=== PATIENT | male | born 1970 | race Caucasian/White ===

== ENCOUNTER 2021-08-02 12:45 | Inpatient (IN) | payer MEDICARE ==
[~2021-08-02] VITALS: Ht 198.1 cm; Wt 137.7 kg
[2021-08-02] MEDS ORDERED: CALCIUM CARBONATE 500 MG (TUMS) TAB.CHEW PO PRN (13:15)
[2021-08-02] MEDS ORDERED: ALPRAZolam 0.25 MG (XANAX) TAB PO PRN (13:15)
[2021-08-02] MEDS ORDERED: LOPERAMIDE 2 MG (IMODIUM) TABLET PO PRN (13:15)
[2021-08-02] MEDS ORDERED: guaiFENesin/CODEINE (ROBITUSSIN AC) 10ML UDC PO PRN (13:15)
[2021-08-02] MEDS ORDERED: FLEET ENEMA ADULT 1 EA BTL PR PRN (13:15)
[2021-08-02] MEDS ORDERED: BISACODYL 10 MG SUPP (DULCOLAX) PR PRN (13:15)
[2021-08-02] MEDS ORDERED: ACETAMINOPHEN 325 MG TABLET PO PRN (13:15)
[2021-08-02] MEDS ORDERED: LACTULOSE SYRUP 10GM/15ML (ENULOSE) 30ML UDC PO PRN (13:15)
[2021-08-02] MEDS ORDERED: MELATONIN 3 MG TABLET PO PRN (13:15)
[2021-08-02] MEDS ORDERED: DOCUSATE SODIUM 100 MG (COLACE) CAP PO PRN (13:15)
[2021-08-02] MEDS ORDERED: diphenhydrAMINE 25 MG TAB (BENADRYL) PO PRN (13:15)
[2021-08-02] MEDS ORDERED: BUPR150T24 PO (14:31)
[2021-08-02] MEDS ORDERED: INSU100V6 SQ (14:31)
[2021-08-02] MEDS ORDERED: LISI20TA26 PO (14:31)
[2021-08-02] MEDS ORDERED: INSU100V39 SQ (14:31)
[2021-08-02] MEDS ORDERED: CARV25TA PO (14:31)
[2021-08-02] MEDS ORDERED: PANT20TA18 PO (14:31)
[2021-08-02] MEDS ORDERED: METF-478 PO (14:31)
[2021-08-02] MEDS ORDERED: DOXY100C PO (14:31)
[2021-08-02] MEDS ORDERED: LOVA20TA2 PO (14:31)
[2021-08-02] MEDS ORDERED: HYDR12.56 PO (14:31)
[2021-08-02] MEDS ORDERED: HYDR-3817 PO (14:31)
[2021-08-02] MEDS ORDERED: ARIP5TAB57 PO (14:31)
--- NOTE | 2021-08-02 14:55 | Physical Therapy Evaluation ---
PT Evaluation-General Medical Diagnosis Admission Date Aug 02, 2021 at 14:40 Medical Diagnosis: right BKA Onset Date: Jul 26, 2021 Therapy Diagnosis Therapy Diagnosis: impaired mobility Weight Bear Status Right Lower Extremity: Right Non Weight Bearing Left Lower Extremity: Left Full Weight Bearing Referral Physician: Bernadette Kiser DO Reason for Referral: Evaluation/Treatment Medical History Pertinent Medical History: DM, HTN Reviewed History: Yes Social History Home: [facility] Current Living Status: Other Family (mother) Entry Into Home: Stairs With Railing PT Steps Into Home: 4 Prior Prior Level of Function SCALE: Activities may be completed with or without assistive devices. 1-Eeedtgtohi-efojyyr completes the activity by him/herself with no assistance from a helper. 5-Set-up or Clean-up Assistance-helper sets up or cleans up; patient completes activity. [place] assists only prior to or following the activity. 4-Supervision or Touching Assistance-helper provides verbal cues and/or touching/steadying and/or contact guard assistance as patient completes activity. Assistance may be provided throughout the activity or intermittently. 3-Partial/Moderate Assistance-helper does LESS THAN HALF the effort. [place] lifts, holds or supports trunk or limbs, but provides less than half the effort. 2-Substantial/Maximal Assistance-helper does MORE THAN HALF the effort. [place] lifts or holds trunk or limbs and provides more than half the effort. 2-Cewyyuvwf-izxwvd does ALL the effort. Patient does none of the effort to complete the activity. Or, the assistance of 2 or more helpers is required for the patient to complete the activity. If activity was not attempted, code reason: 7-Patient Refused. 9-Not Applicable-not attempted and the patient did not perform the activity before the current illness, exacerbation or injury. 10-Not Attempted due to Environmental Limitations-(lack of equipment, weather restraints, etc.). 88-Not Attempted due to Medical Conditions or Safety Concerns. Bed Mobility: 6 Transfers (B,C,W/C): 6 Gait: 6 Stairs: 6 Indoor Mobility (Ambulation): Independent Stairs: Independent PT Evaluation-Current Subjective Patient in family transport pre tx, agrees to PT, has 6/10 pain in right leg. Pt/Family Goals to be independent at home Objective Patient Orientation: Person, Place, Situation ROM/Strength ROM Lower Extremities RLE not tested, LLE WNL Strength Lower Extremities LLE grossly 5/5, RLE not tested Sensory Vision: Wears Glasses Hearing: Functional Sensation Right Lower Extremit: Impaired Sensation Left Lower Extremity: Impaired Transfers Roll Left & Right (QC): 6 Sit to Lying (QC): 6 Lying to Sitting/Side of Bed(Q: 6 Sit to Stand (QC): 3 Chair/Gzv-ab-Hzhhv Xfer(QC): 4 Toilet Transfer (QC): 4 Car Transfer (QC): 3 Patient performs rolling and supine <-> sit with independence, sit <-> stand min assist, transfers CGA, car transfer min assist. Patient needs occasional cues for hand placement and safety. Gait Does the Patient Walk?: Yes Mode of Locomotion: Walk Anticipated Mode of Locomotion: Walk Walk 10 feet (QC): 4 Walk 50 ft with 2 Turns(QC): 88 Walk 150 ft (QC): 88 Walking 10ft/uneven surface-QC: 4 Distance: 10' Gait Assistive Device: FWW Comments/Gait Description Patient can ambulate 10' with a rolling walker with CGA (including 10' over an uneven surface). Patient ambulates slowly, has poor foot clearance, takes a lot of effort. Wheelchair Training Wheel 50 ft with 2 turns (QC): 10 Wheel 150 ft (QC): 10 Stairs 1 Step (curb) (QC): 88 4 Steps (QC): 88 12 Steps (QC): 88 Balance Sitting Static: Normal Sitting Dynamic: Normal Standing Static: Fair Standing Dynamic: Fair Picking up an Object (QC): 4 (using director business development) Assessment/Needs Patient in WC post tx, will continue tx with DIRECTOR SUPPLY CHAIN. Patient has impaired mobility, strength, endurance. He does need some help mostly with sit to stand and has difficulty with ambulation. Rehab Potential: Fair PT Short Term Goals Short Term Goals Time Frame: Aug 09, 2021 Roll Left & Right: 6 Sit to lyin Lying to sitting on side of be: 6 Sit to stand: 4 (CGA) Chair/ggc-ao-skeba transfer: 4 (SBA) Walk 10 feet: 4 (SBA) Walk 50 feet with two turns: 4 (SBA) PT T[place]yer Goals Senior Living Goals PT Tail Sawyer Goals Time Frame: August 23, 2021 Roll Left & Right (QC): 6 Sit to Lying (QC): 6 Lying-Sitting on Side/Bed(QC): 6 Sit to Stand (QC): 6 Chair/Tqr-sb-Nhvwr Xfer(QC): 6 Toilet Transfer (QC): 6 Car Transfer (QC): 4 Does the Patient Walk: Yes Walk 10 feet (QC): 4 Walk 50ft with 2 Turns (QC): 4 Walk 150 ft (QC): 4 Walking 10ft on Uneven Surface: 4 1 Step (curb) (QC): 4 4 Steps (QC): 4 12 Steps (QC): 88 Picking up an Object (QC): 6 Wheel 50 feet with 2 turns (QC: 9 Wheel 150 feet: 9 PT Plan Problem List Problem List: Activity Tolerance, Functional Strength, Safety, Balance, Gait, Transfer, Bed Mobility, ROM Treatment/Plan Treatment Plan: Continue Plan of Care Treatment Plan: Bed Mobility, Education, Functional Activity Teodoro, Functional Strength, Group Therapy, Gait, Safety, Therapeutic Exercise, Transfers Treatment Duration: August 23, 2021 Frequency: At least 5 of 7 days/Wk (IRF) Estimated Hrs Per Day: 1.5 hours per day Patient and/or Family Agrees t: Yes Safety Risks/Education Patient Education: Gait Training, Transfer Techniques, Correct Positioning, Safety Issues Teaching Recipient: Patient Teaching Methods: Demonstration, Discussion Response to Teaching: Reinforcement Needed Discharge Recommendations Plan Patient will perform mobility and transfer training, balance and endurance training, functional strengthening, stair training, gait training, and education, to improve functional mobility and independence at home. Therapy Discharge Recommendati: Scheduled Assistance, Home & Family, Post Acute PT Time/GCodes Time In: 1435 Time Out: 1445 Total Billed Treatment Time: 10 Total Billed Treatment 1 visit MATTHEW MARCUS PT Aug 02, 2021 14:55
--- NOTE | 2021-08-02 15:38 | Occupational Ther Daily Note ---
OT Current Status-Daily Note Subjective Pt began tx in therapy gym, agreeable to OT/PT cotreat. Mental Status/Objective Patient Orientation: Person, Place, Time, Situation ADL-Treatment Therapy Code Descriptions/Definitions Functional [place] Measure: 0=Not Assessed/NA 4=Minimal Assistance 1=Total Assistance 5=Supervision or Setup 2=Maximal Assistance 6=Modified [place] 3=Moderate Assistance 7=Complete IndependenceSCALE: Activities may be completed with or without assistive devices. 1-Uuiqdybybz-ermdagh completes the activity by him/herself with no assistance from a helper. 5-Set-up or Clean-up Assistance-helper sets up or cleans up; patient completes activity. [place] assists only prior to or following the activity. 4-Supervision or Touching Assistance-helper provides verbal cues and/or touching/steadying and/or contact guard assistance as patient completes activity. Assistance may be provided throughout the activity or intermittently. 3-Partial/Moderate Assistance-helper does LESS THAN HALF the effort. [place] lifts, holds or supports trunk or limbs, but provides less than half the effort. 2-Substantial/Maximal Assistance-helper does MORE THAN HALF the effort. [place] lifts or holds trunk or limbs and provides more than half the effort. 5-Okuqbqsus-mdikac does ALL the effort. Patient does none of the effort to com plete the activity. Or, the assistance of 2 or more helpers is required for the patient to complete the activity. If activity was not attempted, code reason: 7-Patient Refused. 9-Not Applicable-not attempted and the patient did not perform the activity before the current illness, exacerbation or injury. 10-Not Attempted due to Environmental Limitations-(lack of equipment, weather restraints, etc.). 88-Not Attempted due to Medical Conditions or Safety Concerns. Shower/Bathe Self (QC): 4 (Supervision) Upper Body Dressing (QC): 5 (Set up) Lower Body Dressing (QC): 3 (Rolando) On/Off Footwear: 5 (Set up) Other Treatment PT/OT cotreat: 2 clinicians required due to the skills of a rehabilitation tech doesn't possess. PT focused on transfers, LE placement during standing activities, and e ndurance. OT focused on ADLs, UE strengthening, and dyanmic standing balance needed for ADLs. Pt propelled to room in w/c and then transferred to shower bench with stability assistance. Pt then stood again in shower to doff pants with steady assistance. Pt doffed shirt and footwear at SBA. Pt showered at supervision. Upon finishing pt able to don pants with Rolando to pull pants over bottom. Pt able to don footwear and shirt at set up. Pt then propelled self to therapy gym to complete bike for 10min to increase activity tolerance and UE strength. Pt requested to stop due to fatigue and pain at 8/10, for his back and leg. pt propelled self to room. Pt transferred to EOB from w/c to supine. Pt education was given on purpose of OT/PT and what to expect from day to day. Pt ended tx, supine in bed with nursing in room, call light and phone in reach and all needs met. Education OT Patient Education: Rehab process Teaching Recipient: Patient Teaching Methods: Discussion Response to Teaching: Verbalize Understanding OT Slackline Operator Goals Slackline Operator Goals Time Frame: Aug 14, 2021 Eating (QC): 6 Oral Hygiene (QC): 6 Toileting Hygiene (QC): 6 Shower/Bathe Self (QC): 6 Upper Body Dressing (QC): 6 Lower Body Dressing (QC): 6 On/Off Footwear (QC): 6 1=Demonstrate adherence to instructed precautions during ADL tasks. 2=Patient will verbalize/demonstrate understanding of assistive devices/modifications for ADL. 3=Patient will improve strength/tolerance for activity to enable patient to perf orm ADL's. OT Education/Plan Problem List/Assessment Assessment: Decreased Activ Tolerance, Decreased UE Strength, Impaired Funct Balance, Impaired I ADL's, Impaired Self-Care Skills Discharge Recommendations Plan/Recommendations: Continue POC Treatment Plan/Plan of Care Patient would benefit from OT for education, treatment and training to promote independence in ADL's, mobility, safety and/or upper extremity function for ADL's. Plan of Care: ADL Retraining, Functional Mobility, Group Exercise/Act as Ind, Orthotic Fitting/Training, UE Funct Exercise/Act Treatment Duration: Aug 14, 2021 Frequency: At least 5 of 7 days/Wk (IRF) Estimated Hrs Per Day: 1.5 hours per day (60-90 min/day) Rehab Potential: Fair Time/GCodes Start Time: 14:55 Stop Time: 16:15 Total Time Billed (hr/min): 80 Billed Treatment Time OT/PT cotreat [id number] 1 visit, 1 ADL 3 (50min), EX (10min), FA (10min) Sejal Feliz Aug 02, 2021 15:38
[2021-08-02] MEDS ORDERED: APIX5TAB PO (15:58)
--- NOTE | 2021-08-02 15:59 | PM&R Post Admission Assessment ---
PM&R Date of Visit: Aug 02, 2021 Time of Visit: 15:30 History of Present Illness Chief complaint: Right BKA History of present illness: This is a 50-year-old white male who sees a provider in [place], [place] who has a past medical history of diabetes insulin-dependent, severe neuropathy, and obesity who suffered a right ankle fracture apparently due to severe neuropathy continue to ambulate on it with the joint and osteomyelitis set in requiring ultimately a right BKA. He denies using any oxygen or CPAP machine but he does appear to have risk factors for ERLINDA. His pain is fairly well controlled. He just had a shower and has done very well with that. He is disabled and lives with his mother at home. I did reconcile all medication and acute care medication. Past Xvslsbs-Ogcqtl-Xhjnoi Hx Past Med/Social Hx: Reviewed Nursing Past Med/Soc Hx, Reviewed and Corrections made Patient Social History Marrital Status: single Employed/Student: unemployed Alcohol Use: Denies Use Smoking Status: Former Smoker Past Medical History Surgeries: Orthopedic Cardiac: High Cholesterol, Hypertension Neurological: Neuropathy Gastrointestinal: Gastroesophageal Reflux Musculoskeletal: Arthritis Endocrine: Diabetes, Insulin dep Psychosocial: Sleep Difficulties, Anxiety, Bipolar, Depression Prior Level of Function Bed Mobility: 6 Transfers: 6 Gait: 6 Stairs: 6 Indoor Mobility (Ambulation): Independent Stairs: Independent Current Level of Fuctioning Roll Left to Right: 6 Sit to Lyin Lying to Sitting/Side of Bed: 6 Sit to Stand: 3 Chair/Lvp-cq-Xcwal Xfer: 4 Car Transfer: 3 Does the Patient Walk: Yes Mode of Locomotion: Walk Anticipated Mode of Locomotion: Walk Walk 10 feet: 4 Walk 50 ft with 2 Turns: 88 Walk 150 ft: 88 Walking 10ft on uneven surface: 4 Gait Assistive Device: FWW Wheel 50 ft with 2 turns: 10 Wheel 150 ft: 10 1 Step (curb): 88 4 Steps: 88 12 Steps: 88 Picking up an Object: 4 (using meter reading clerk) PM&R Allergy/Meds/Data Review Allergies Coded Allergies: No Known Allergies (Verified Allergy, Unknown, 08/02/21) Home Medications Scheduled Apixaban (Eliquis), 5 MG PO BID, (Reported) Aripiprazole (Aripiprazole), 5 MG PO DAILY, (Reported) Bupropion HCl (Bupropion Xl), 150 MG PO DAILY, (Reported) Carvedilol (Carvedilol), 25 MG PO BID, (Reported) Doxycycline Hyclate (Vibramycin), 100 MG PO BID, (Reported) Hydrochlorothiazide (Hydrochlorothiazide), 12.5 MG PO DAILY, (Reported) Insulin Glargine,Hum.rec.anlog (Lantus), 50 UNIT SQ BID, (Reported) Insulin Lispro (Insulin Lispro), 25 UNIT SQ TIDWM, (Reported) Lisinopril (Lisinopril), 20 MG PO DAILY, (Reported) Lovastatin (Lovastatin), 20 MG PO DAILY, (Reported) Metformin HCl (Metformin HCl ER), 500 MG PO DAILY, (Reported) Pantoprazole Sodium (Pantoprazole Sodium), 20 MG PO BID, (Reported) Scheduled PRN Hydrocodone/Acetaminophen (Hydrocodone-Acetamin 7.5-325), 1 EACH PO Q4H PRN for PAIN-MODERATE (5-7), (Reported) Current Medications Current Medications Reviewed Review of Systems Constitutional: see HPI, malaise, weakness EENTM: no symptoms reported Respiratory: no symptoms reported Cardiovascular: no symptoms reported Gastrointestinal: no symptoms reported Genitourinary: no symptoms reported Musculoskeletal: joint pain Skin: no symptoms reported Psychiatric/Neurological: Depressed All Other Systems Reviewed Negative Unless Noted: Yes Physical Exam Physical Exam Vital Signs Capillary Refill : Height, Weight, BMI Height: '" Weight: lbs. oz. kg; BMI Method: General Appearance: No Apparent Distress, WD/WN, Chronically ill, Obese Eyes: Bilateral Eye Normal Inspection, Bilateral Eye PERRL HEENT: PERRL/EOMI, Normal ENT Inspection, Pharynx Normal Neck: Full Range of Motion, Normal Inspection, Non Tender, Supple, Carotid Bruit Respiratory: Chest Non Tender, Lungs Clear, Normal Breath Sounds, No Accessory Muscle Use, No Respiratory Distress Cardiovascular: Regular Rate, Rhythm, No Edema, No Gallop, No JVD, No Murmur, Normal Peripheral Pulses Gastrointestinal: Normal Bowel Sounds, No Organomegaly, No Pulsatile Mass, Non Tender, Soft Back: Normal Inspection, No CVA Tenderness, No Vertebral Tenderness Extremity: Normal Capillary Refill, Normal Inspection, Normal Range of Motion (Right BKA), Non Tender, No Calf Tenderness, No Pedal Edema Neurologic/Psychiatric: Alert, Oriented x3, No Motor/Sensory Deficits, Normal Mood/Affect, dynamometer tester engine II-XII Norm as Tested, Abnormal Gait, Motor Weakness (Generalized) Skin: Normal Color, Warm/Dry Lymphatic: No Adenopathy PM&R Medical Assessment & Plan REHAB/MEDICAL ASSESSMENT AND PLAN: REHAB IMPAIRMENT GROUP: Right BKA ETIOLOGIC DIAGNOSIS: Right BKA The comorbidities that impact the patients function and/or functional outcome by: Poor diabetic control mood disorder, obesity, chronic disability REHAB PLAN: The patient is being admitted to our comprehensive inpatient rehabilitation facility and can tolerate the intensity of service consisting of at least: 180 minutes of therapy a day, 5 out of 7 days a week Rehab treatment will consist of: PT and OT will focus on regaining function with use of assistive devices in order to regain enough function to return back to independent living with right BKA The patient/family has a good understanding of our discharge process and will benefit from an interdisciplinary inpatient rehabilitation program. The patient has potential to make improvement and is in need of at least two of the following multidisciplinary therapies including but not limited to physical, occupational, speech, and prosthetics and orthotics. Additionally the patient will need services from respiratory, nutritional services, wound care, psychology, etc. (Customize this to each patient). Given the patients complex condition and risk of further medical complications, rehabilitation services cannot be safely or effectively provided at a lower level of care such as a jail facility. BARRIERS TO DISCHARGE: Chronic disability ESTIMATED LOS: 10 days DISPOSITION: Home RELEVANT CHANGES SINCE PREADMISSION SCREENING: I have compared the patients medical and functional status at the time of the preadmission screening and there are: no changes PROGNOSIS: Fair REHABILITATION GOALS: 1. PT and OT will focus on regaining function with use of assistive devices in order to regain enough function to return back to independent living with right BKA All the above goals were reviewed with the patient and he/she is in agreement. By signing this document, I acknowledge that I have personally performed a full physical examination on this patient within 24 hours of admission to this inpatient rehabilitation facility and have determined the patient to be able to tolerate the above course of treatment at an intensive level for a reasonable period of time. I will be completing a detailed individualized Plan of Care for this patient by day #4 of the patients stay based upon the Preadmission Screen, the Post-Admission Evaluation, and the therapy evaluations. Admission Dx/Comorbidities: (1) Hx of right BKA ICD Codes: Z89.511 - Acquired absence of right leg below knee (2) Diabetes mellitus, insulin dependent (IDDM), uncontrolled (3) Obesity ICD Codes: E66.9 - Obesity, unspecified (4) Hypertension ICD Codes: I10 - Essential (primary) hypertension (5) Hyperlipidemia ICD Codes: E78.5 - Hyperlipidemia, unspecified (6) Neuropathy ICD Codes: G62.9 - Polyneuropathy, unspecified (7) Mood disorder ICD Codes: F39 - Unspecified mood [affective] disorder Assessment/Plan Assessment and Plan Assess & Plan/Chief Complaint Assessment: Status post right BKA Diabetes insulin-dependent Hypertension Hyperlipidemia Mood disorder Obesity Severe neuropathy Plan: Supportive care Aggressive rehab Pain control SHLOMO PATEL DO Aug 02, 2021 15:59
--- NOTE | 2021-08-02 16:12 | Occupational Therapy Eval ---
OT Evaluation-General/PLF Medical Diagnosis Admission Date Aug 02, 2021 at 14:40 Medical Diagnosis: right BKA Onset Date: Jul 26, 2021 Therapy Diagnosis Therapy Diagnosis: reduced adl status, balance, Precautions Precautions/Isolations: Fall Prevention, Standard Precautions Referral Physician: Bernadette Kiser DO Referral Reason: Evaluation/Treatment Medical History Pertinent Medical History: DM, HTN Current History Pt s/p R BKA. Per patient, he lives with his mother in a multilevel home. He can stay on main level if needed. Pt was indep with ADLs and IADLs prior to admission. 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 Social History Home: Multilevel Current Living Status: Other Family (mother) Entry Into Home: Stairs With Railing Steps Into Home: 4 ADL-Prior Level of Function SCALE: Activities may be completed with or without assistive devices. 2-Bqodkkezyy-affkbur completes the activity by him/herself with no assistance from a helper. 5-Set-up or Clean-up Assistance-helper sets up or cleans up; patient completes activity. [place] assists only prior to or following the activity. 4-Supervision or Touching Assistance-helper provides verbal cues and/or touching/steadying and/or contact guard assistance as patient completes activ ity. Assistance may be provided throughout the activity or intermittently. 3-Partial/Moderate Assistance-helper does LESS THAN HALF the effort. [place] lifts, holds or supports trunk or limbs, but provides less than half the effort. 2-Substantial/Maximal Assistance-helper does MORE THAN HALF the effort. [place] lifts or holds trunk or limbs and provides more than half the effort. 8-Vcstzdsfw-juhkiu does ALL the effort. Patient does none of the effort to complete the activity. Or, the assistance of 2 or more helpers is required for the patient to complete the activity. If activity was not attempted, code reason: 7-Patient Refused. 9-Not Applicable-not attempted and the patient did not perform the activity before the current illness, exacerbation or injury. 10-Not Attempted due to Environmental Limitations-(lack of equipment, weather restraints, etc.). 88-Not Attempted due to Medical Conditions or Safety Concerns. Self Care: Independent Functional Cognition: Independent DME/Equipment: Tub/Shower Drive Self: Yes OT Current Status Subjective Pt reports pain as 6/10 in residual limb. Pt complains of phantom pain in R foot. Appearance Pt left sitting in w/c with PORTER present. Mental Status/Objective Patient Orientation: Person, Place, Situation Current Upper Extremity ROM WNL Upper Extremity Strength WNL ADL-Treatment Eating (QC): 6 (per clinical judgment) Oral Hygiene (QC): 5 (per clinical judgment) Shower/Bathe Self (QC): 7 Upper Body Dressing (QC): 5 (per clinical judgment) Lower Body Dressing (QC): 3 (per clinical judgment) On/Off Footwear (QC): 4 Toileting Hygiene (QC): 3 Sit<>stand: CGA-Min A with extra time. Fair standing balance, requires min a when removing single UE support from walker. Anticipate increased assist will be needed if removing BUE support during functional tasks such as clothing management. Pt able to don/doff L sock with Supervision and extra effort. Pt able to hop ~5 feet with Min a and walker, mild unsteadiness but no LOB. Pt left with PORTER to finish treatment. Education OT Patient Education: Correct positioning, Purpose of tx/functional activities, Reviewed precautions, Rehab process, Safety issues, Transfer techniques Teaching Recipient: Patient Teaching Methods: Demonstration, Discussion Response to Teaching: Verbalize Understanding, Return Demonstration OT Short Term Goals Short Term Goals Time Frame: Aug 09, 2021 Eatin Oral hygiene: 6 Toileting hygiene: 4 Shower/bathe self: 4 Upper body dressin Lower body dressin Putting on/taking off footwear: 5 OT [facility] Goals Brush Loader And Handle Attacher Goals Time Frame: Aug 14, 2021 Eating (QC): 6 Oral Hygiene (QC): 6 Toileting Hygiene (QC): 6 Shower/Bathe Self (QC): 6 Upper Body Dressing (QC): 6 Lower Body Dressing (QC): 6 On/Off Footwear (QC): 6 1=Demonstrate adherence to instructed precautions during ADL tasks. 2=Patient will verbalize/demonstrate understanding of assistive devices/modifications for ADL. 3=Patient will improve strength/tolerance for activity to enable patient to perform ADL's. OT Education/Plan Problem List/Assessment Assessment: Decreased Activ Tolerance, Impaired Funct Balance, Impaired I ADL's, Impaired Self-Care Skills Discharge Recommendations Plan/Recommendations: Continue POC Therapy Discharge Recommendati: Post Acute OT (home health OT) Treatment Plan/Plan of Care Treatment,Training & Education: Yes Patient would benefit from OT for education, treatment and training to promote independence in ADL's, mobility, safety and/or upper extremity function for ADL's. Plan of Care: ADL Retraining, Functional Mobility, Group Exercise/Act as Ind, UE Funct Exercise/Act Treatment Duration: Aug 14, 2021 Frequency: At least 5 of 7 days/Wk (IRF) Estimated Hrs Per Day: 1.5 hours per day (60-90 min/day) Rehab Potential: Fair Time/GCodes Start Time: 14:45 Stop Time: 14:55 Total Time Billed (hr/min): 10 Billed Treatment Time 1 visit Odilia Conrad OT Aug 02, 2021 16:12
--- NOTE | 2021-08-02 16:36 | Physical Therapy Daily Note ---
PT Daily Note-Current Subjective Pt. agreeable to co Rx with OT for ADLs showering, w/c mob , TRFs therex etc. Pt. c/o pain in residual limb on right at 11/29 . Pt. shares he had been told he may be using a leg crutch to walk while he was here. This was forwarded to the DPT Pain Numeric Pain Scale: 8 Location: Right Location Body Site: Calf Pain Description: Ache Mental Status Patient Orientation: Normal For Age Transfers SCALE: Activities may be completed with or without assistive devices. 3-Mrqjcibdtd-bjfokst completes the activity by him/herself with no assistance from a helper. 5-Set-up or Clean-up Assistance-helper sets up or cleans up; patient completes activity. [place] assists only prior to or following the activity. 4-Supervision or Touching Assistance-helper provides verbal cues and/or touching/steadying and/or contact guard assistance as patient completes activity. Assistance may be provided throughout the activity or intermittently. 3-Partial/Moderate Assistance-helper does LESS THAN HALF the effort. [place] lifts, holds or supports trunk or limbs, but provides less than half the effort. 2-Substantial/Maximal Assistance-helper does MORE THAN HALF the effort. [place] lifts or holds trunk or limbs and provides more than half the effort. 6-Qzgubylbx-uwbsih does ALL the effort. Patient does none of the effort to complete the activity. Or, the assistance of 2 or more helpers is required for the patient to complete the activity. If activity was not attempted, code reason: 7-Patient Refused. 9-Not Applicable-not attempted and the patient did not perform the activity before the current illness, exacerbation or injury. 10-Not Attempted due to Environmental Limitations-(lack of equipment, weather restraints, etc.). 88-Not Attempted due to Medical Conditions or Safety Concerns. Roll Left & Right (QC): 6 Sit to Lying (QC): 6 Lying to Sitting/Side of Bed(Q: 6 Sit to Stand (QC): 4 Chair/Ybu-cs-Mxein Xfer(QC): 4 Weight Bearing Right Lower Extremity: Right Non Weight Bearing Left Lower Extremity: Left Full Weight Bearing Gait Training Does the Patient Walk?: Yes Gait Assistive Device: FWW pt. ambulated short distances of 5-6 ft with FWW x 3 trials with CGA steadying assist. pt. fatigues quickly and needs to sit Wheelchair Training Does the Pt Use a Wheelchair?: Yes Wheel 50 ft with 2 turns (QC): 6 Type of Wheelchair: Manual pt. fatigues quickly but is indep with braking . pt requires assist to apply leg rests etc Exercises Supine Ex: Ankle pumps, Quad Set, Rolling, Glut sets, Heel Slides, Scooting, Hip abd/add Supine Reps: 12 Seated Therapy Exercises: Sit to stand, Long arc quads Seated Reps: 5 NuStep Minutes: 10 NuStep Workload: 1 Treatments PT OT co Rx secondary to pts level of debility as well as safety . PT OT coordinated U&L extremity for showering, dressing, TRFs in out shower , pants up down etc with PT facilitating TRF and balance and OT facilitating donning and doffing clothing etc while in stance at same time. Assessment Current Status: Good Progress pt. cooperative but fatigued with Rx PT Short Term Goals Short Term Goals Time Frame: Aug 09, 2021 Roll Left & Right: 6 Sit to lyin Lying to sitting on side of be: 6 Sit to stand: 4 (CGA) Chair/jyc-tb-jimbq transfer: 4 (SBA) Walk 10 feet: 4 (SBA) Walk 50 feet with two turns: 4 (SBA) PT Mcc Goals Tire Beader Maker Goals PT Mcc Goals Time Frame: August 23, 2021 Roll Left & Right (QC): 6 Sit to Lying (QC): 6 Lying-Sitting on Side/Bed(QC): 6 Sit to Stand (QC): 6 Chair/Tjn-ge-Eqsvs Xfer(QC): 6 Toilet Transfer (QC): 6 Car Transfer (QC): 4 Does the Patient Walk: Yes Walk 10 feet (QC): 4 Walk 50ft with 2 Turns (QC): 4 Walk 150 ft (QC): 4 Walking 10ft on Uneven Surface: 4 1 Step (curb) (QC): 4 4 Steps (QC): 4 12 Steps (QC): 88 Picking up an Object (QC): 6 Wheel 50 feet with 2 turns (QC: 9 Wheel 150 feet: 9 PT Plan Treatment/Plan Treatment Plan: Continue Plan of Care Treatment Plan: Bed Mobility, Education, Functional Activity Teodoro, Functional Strength, Group Therapy, Gait, Safety, Therapeutic Exercise, Transfers Treatment Duration: August 23, 2021 Frequency: At least 5 of 7 days/Wk (IRF) Estimated Hrs Per Day: 1.5 hours per day Patient and/or Family Agrees t: Yes Safety Risks/Education Patient Education: Gait Training, Transfer Techniques, Correct Positioning, W/C Management, Disease Process, Safety Issues Teaching Recipient: Patient Teaching Methods: Demonstration, Discussion Response to Teaching: Verbalize Understanding, Return Demonstration, Reinforcement Needed educated pt in therx he can do himself as well as oriented to Rehab: schedule, meals, use of phone, lights and bed Time/GCodes Time In: 1455 Time Out: 1615 Total Billed Treatment Time: 80 Total Billed Treatment 1,WC15m,FA45m,EX20m SUN TUTTLE UTILITY TENDER CARDING Aug 02, 2021 16:36
[2021-08-02] MEDS: HYDROcodone/APAP 7.5 MG/325 MG (LORTAB, LORCET PLUS) TABLET PO PRN ×2 (16:49→21:12)
[2021-08-02] MEDS ORDERED: INSULIN LISPRO 25 UNIT SQ SCH (18:00)
[2021-08-02] MEDS: inSUlin ASPART (NovoLOG) 1 UNIT/0.01 ML (CHARGE PER UNIT) SC SCH (18:30)
[2021-08-02 19:58] VITALS: BP 143/76
[2021-08-02] MEDS ORDERED: APIXABAN 5 MG (ELIQUIS) TABLET PO SCH (21:00)
[2021-08-02] MEDS ORDERED: NON-FORMULARY MEDICATION 1 EA EA (Carvedilol 25 MG) PO SCH (21:00)
[2021-08-02] MEDS ORDERED: INSULIN GLARGINE HUM REC ANLOG 50 UNIT SQ SCH (21:00)
[2021-08-02] MEDS: PANTOPRAZOLE 20 MG TABLET (PROTONIX) PO SCH (21:06)
[2021-08-02] MEDS: DOXYCYCLINE 100 MG (VIBRAMYCIN) TABLET PO SCH (21:06)
[2021-08-02] MEDS: polyethylene glycoL POWDER 17 GM (MIRALAX) PACK PO SCH (21:15)
[2021-08-02] MEDS: DOCUSATE SODIUM 100 MG (COLACE) CAP PO SCH (21:15)
[2021-08-02] MEDS: SENNA W/DOCUSATE (SENOKOT S) TABLET PO SCH (21:16)
[2021-08-03] MEDS: HYDROcodone/APAP 7.5 MG/325 MG (LORTAB, LORCET PLUS) TABLET PO PRN ×5 (01:13→20:59)
[2021-08-03 06:04] LABS: BASOPHILS # (AUTO) 0.1 10^3/uL (0.0-0.1); BASOPHILS % (AUTO) 1 % (0-10); EOSINOPHILS # (AUTO) 0.6 10^3/uL (0.0-0.3); EOSINOPHILS % (AUTO) 6 % (0-10); HEMATOCRIT 30 % (40-54); LYMPHOCYTES # (AUTO) 1.7 10^3/uL (1.0-4.0); LYMPHOCYTES % (AUTO) 19 % (12-44); MEAN CORPUSCULAR HEMOGLOBIN 28 pg (25-34); MEAN CORPUSCULAR HGB CONC 33 g/dL (32-36); MEAN CORPUSCULAR VOLUME 86 fL (80-99); MEAN PLATELET VOLUME 10.7 fL (9.0-12.2); MONOCYTES # (AUTO) 0.5 10^3/uL (0.0-1.0); MONOCYTES % (AUTO) 5 % (0-12); NEUTROPHILS # (AUTO) 6.3 10^3/uL (1.8-7.8); NEUTROPHILS % (AUTO) 69 % (42-75); PLATELET COUNT 196 10^3/uL (130-400); WHITE BLOOD COUNT 9.2 10^3/uL (4.3-11.0)
[2021-08-03 06:17] LABS: ALBUMIN 3.2 GM/DL (3.2-4.5); POTASSIUM 3.6 MMOL/L (3.6-5.0)
[2021-08-03 06:22] LABS: BILIRUBIN,TOTAL 0.4 MG/DL (0.1-1.0)
[2021-08-03 06:23] LABS: CREATININE SERUM 1.6 MG/DL (0.60-1.30)
--- NOTE | 2021-08-03 06:37 | PM&R Progress Note ---
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 Review of Systems General: Fatigue, Malaise Musculoskeletal: leg pain Objective Exam Vital Signs Vital Signs Date Time Temp Pulse Resp B/P (MAP) Pulse Ox O2 Delivery O2 Flow Rate FiO2 08/03/21 20:45 97 Room Air 08/03/21 19:43 37.2 65 20 165/79 (107) Capillary Refill : General Appearance: No Apparent Distress, WD/WN, Chronically ill, Obese HEENT: PERRL/EOMI, Normal ENT Inspection, Pharynx Normal Neck: Full Range of Motion, Normal Inspection, Non Tender, Supple, Carotid Bruit Respiratory: Chest Non Tender, Lungs Clear, Normal Breath Sounds, No Accessory Muscle Use, No Respiratory Distress Cardiovascular: Regular Rate, Rhythm, No Edema, No Gallop, No JVD, No Murmur, Normal Peripheral Pulses Gastrointestinal: Normal Bowel Sounds, No Organomegaly, No Pulsatile Mass, Non Tender, Soft Back: Normal Inspection, No CVA Tenderness, No Vertebral Tenderness Extremity: Normal Capillary Refill, Normal Inspection, Normal Range of Motion (Right BKA), Non Tender, No Calf Tenderness, No Pedal Edema Neurologic/Psychiatric: Alert, Oriented x3, No Motor/Sensory Deficits, Normal Mood/Affect, global compensation analyst II-XII Norm as Tested, Abnormal Gait, Motor Weakness (Generalized) Skin: Normal Color, Warm/Dry Lymphatic: No Adenopathy Results/Procedures Lab Laboratory Tests 08/03/21 05:54 Patient resulted labs reviewed. FIM Transfers Therapy Code Descriptions/Definitions Functional [place] Measure: 0=Not Assessed/NA 4=Minimal Assistance 1=Total Assistance 5=Supervision or Setup 2=Maximal Assistance 6=Modified [place] 3=Moderate Assistance 7=Complete IndependenceSCALE: Activities may be completed with or without assistive devices. 6-Tqukckjkvd-etzlqhe completes the activity by him/herself with no assistance from a helper. 5-Set-up or Clean-up Assistance-helper sets up or cleans up; patient completes activity. [place] assists only prior to or following the activity. 4-Supervision or Touching Assistance-helper provides verbal cues and/or touching/steadying and/or contact guard assistance as patient completes activity. Assistance may be provided throughout the activity or intermittently. 3-Partial/Moderate Assistance-helper does LESS THAN HALF the effort. [place] lifts, holds or supports trunk or limbs, but provides less than half the effort. 2-Substantial/Maximal Assistance-helper does MORE THAN HALF the effort. [place] lifts or holds trunk or limbs and provides more than half the effort. 7-Rknnwwumb-uyofdi does ALL the effort. Patient does none of the effort to complete the activity. Or, the assistance of 2 or more helpers is required for the patient to complete the activity. If activity was not attempted, code reason: 7-Patient Refused. 9-Not Applicable-not attempted and the patient did not perform the activity before the current illness, exacerbation or injury. 10-Not Attempted due to Environmental Limitations-(lack of equipment, weather restraints, etc.). 88-Not Attempted due to Medical Conditions or Safety Concerns. Roll Left to Right (QC): 6 Sit to Lying (QC): 6 Sit to Stand (QC): 4 Chair/Gko-nd-Rthpc Xfer(QC): 4 Car Transfer (QC): 3 Gait Training Does the Patient Walk?: Yes Walk 10 feet (QC): 4 Walk 50 ft with 2 Turns(QC): 88 Walk 150 ft (QC): 88 Walking 10ft/uneven surface-QC: 4 Gait Assistive Device: FWW Wheelchair Training Does the Pt Use a Wheelchair?: Yes Wheel 50 ft with 2 turns (QC): 6 Wheel 150 ft (QC): 10 Type of Wheelchair: Manual Stair Training 1 Step (curb) (QC): 88 4 Steps (QC): 88 12 Steps (QC): 88 Balance Picking up an Object (QC): 4 (using punch out crew member) ADL-Treatment Eating (QC): 6 (per clinical judgment) Oral Hygiene (QC): 5 (per clinical judgment) Shower/Bathe Self (QC): 7 Upper Body Dressing (QC): 5 (per clinical judgment) Lower Body Dressing (QC): 3 (per clinical judgment) On/Off Footwear (QC): 5 (Set up) Toileting Hygiene (QC): 3 Assessment/Plan Assessment and Plan Assess & Plan/Chief Complaint Assessment: Status post right BKA Diabetes insulin-dependent Hypertension Hyperlipidemia Mood disorder Obesity Severe neuropathy Plan: Supportive care Aggressive rehab Pain control 08/03/2021: Monitor insulin and sugar Supportive care (1) Hx of right BKA (2) Diabetes mellitus, insulin dependent (IDDM), uncontrolled (3) Obesity (4) Hypertension (5) Hyperlipidemia (6) Neuropathy (7) Mood disorder SHLOMO PATEL DO Aug 03, 2021 06:37
--- NOTE | 2021-08-03 06:37 | Individualized Plan of Care ---
Individualized Plan of Care Rehab Nursing IPOC Order Admission Date Aug 02, 2021 at 14:40 Current Orders Orders Admission Order(Inpt,Obs,Sdc) (08/02/21 13:11) Vital Signs: Per Unit Policy ( 08,16,00 (08/02/21 13:11) Nicolás Amado (08/02/21 13:11) Sequential Compression Device (08/02/21 13:11) Ukrainian Folk Arts Instructor-Inpt Rehab Con (08/02/21 13:11) Rehab Nursing Orders-Ipoc (08/02/21 13:11) Physical Therapy Rehab Orders (08/02/21 13:11) Occupational Therapy Rehab Ord (08/02/21 13:11) Speech Therapy Rehab Orders (08/02/21 13:11) Cbc With Automated Diff (08/03/21 06:00) Comprehensive Metabolic Panel (08/03/21 06:00) Precautions (Aru) (08/02/21 13:11) Weekly Weight WEEK (08/02/21 13:11) Rehab-Intensity Of Therapy (08/02/21 13:11) Initiate Admission Nursing Pro .admission (08/02/21 13:11) Alprazolam Tablet (Xanax Tablet) (08/02/21 13:15) Calcium Carbonate Chew Tablet (Antacid C (08/02/21 13:15) Diphenhydramine Tablet (Benadryl Tablet) (08/02/21 13:15) Docusate Sodium Capsule (Colace Capsule) (08/02/21 21:00) Docusate Sodium Capsule (Colace Capsule) (08/02/21 13:15) Bisacodyl Suppository (Dulcolax Supposit (08/02/21 13:15) Lactulose Oral Solution (Enulose Oral So (08/02/21 13:15) Na Phos/Na Biphos Enema (Fleet Enema [place] (08/02/21 13:15) Guaifenesin/Codeine Syrup (Robitussin Ac (08/02/21 13:15) Loperamide Tablet (Imodium Tablet) (08/02/21 13:15) Melatonin Tablet (Melatonin Tablet) (08/02/21 13:15) Polyethylene Glycol Powder Pkt (Miralax (08/02/21 21:00) Ondansetron Oral Dissolve Tab (Zofran (08/02/21 13:15) Senna S Tablet (Senokot S Tablet) (08/02/21 21:00) Acetaminophen Tablet/Caplet (Tylenol T (08/02/21 13:15) Code/Resuscitation (08/02/21 13:11) Initiate Admission Nursing Pro .admission (08/02/21 13:11) Nursing Communication (Order) (08/02/21 14:15) Follow-Up Appointment (08/02/21 14:15) Weight Bearing Restrictions (08/02/21 14:15) Admission Arrival Bed Request (08/02/21 14:40) Cho 60g/M 1snack (16-2000 Fadi) (08/02/21 Lunch) Accucheck Achs ACHS (08/02/21 15:13) Patient Visit (08/02/21 ) Pt Eval Moderate Complexity (08/02/21 ) Apixaban Tablet (Eliquis Tablet) (08/02/21 21:00) Hydrocodone/Apap 7.5/325 Tab (Lortab 7. (08/02/21 16:00) Lisinopril Tablet (Zestril Tablet) (08/03/21 09:00) Metformin Xr Tablet (Glucophage Xr Table (08/03/21 08:00) Pantoprazole Tablet (Protonix Tablet) (08/02/21 21:00) (Nf) Aripiprazole (08/03/21 09:00) (Nf) Bupropion Hcl (Bupropion Xl) (08/03/21 09:00) (Nf) Carvedilol (08/02/21 21:00) Doxycycline Hyclate Tablet (Vibramycin T (08/02/21 21:00) (Nf) Hydrochlorothiazide (08/03/21 09:00) (Nf) Insulin Glargine,Hum.Rec.Anlog (Chris (08/02/21 21:00) (Nf) Insulin Lispro (08/02/21 18:00) (Nf) Lovastatin (08/03/21 09:00) Aripiprazole Tablet (Abilify Tablet) (08/03/21 09:00) Carvedilol Tablet (Coreg Tablet) (08/02/21 21:00) Insulin Determir (Per Unit) (Levemir (Pe (08/02/21 21:00) Bupropion Sr 12 Hr Tablet (Wellbutrin Sr (08/03/21 09:00) Hydrochlorothiazide Cap/Tablet (Hctz Cap (08/03/21 09:00) Simvastatin Tablet (Zocor Tablet) (08/03/21 09:00) Insulin Aspart (Novolog) (Novolog (Charg (08/02/21 18:00) Aspirin Enteric Coated Tablet (Ecotrin T (08/03/21 09:00) Hemoglobin A1c (08/03/21 05:53) Thyroid Stimulating Hormone (08/03/21 05:53) Patient Visit (08/03/21 ) Speech Sound Lang Comp (08/03/21 ) Treat. Speech/Lang/Voice (08/03/21 ) Patient Visit (08/02/21 ) Wheelchair Mgmt/Propulsn 15min (08/02/21 ) Exercise Therap, Ea 15 Min (08/02/21 ) Functional Activities, Ea 15 (08/02/21 ) Insulin Determir (Per Unit) (Levemir (Pe (08/03/21 11:30) Insulin Aspart (Novolog) (Novolog (Charg (08/03/21 13:00) Patient Visit (08/03/21 ) Functional Activities, Ea 15 (08/03/21 ) Gait Training, Ea 15 Min (08/03/21 ) Exercise Therap, Ea 15 Min (08/03/21 ) Consult Wound Care Physician (08/03/21 18:40) Rehab Nursing Orders: Ongoing Assess. of Cognitive Status, Ongoing Assess. of F unction Status, Bladder Management, Bladder Scan, Bladder Training, Bowel Management, Bowel Training, Disease Management & Educaiton, DVT Prophylaxis, Fall Prevention, Fluid/Electrolyte/Nutrition Mgmt, Infection Prevention, Medication Management & Education, Management of Risks & Complications, Management of Skin Intergrity, Nutrition Management, Pain Management, Patient/Family Support, Safety Management, Weight Bearing Precaution, Wound Management Intensity of Therapy to be met Patient to be seen: Min.3h per day/5 of 7d PT IPOC Problem List: Activity Tolerance, Functional Strength, Safety, Balance, Gait, Transfer, Bed Mobility, ROM Treatment Plan: Continue Plan of Care Bed Mobility, Education, Functional Activity Teodoro, Functional Strength, Group Therapy, Gait, Safety, Therapeutic Exercise, Transfers Treatment Duration: August 23, 2021 Frequency: At least 5 of 7 days/Wk (IRF) Estimated Hrs Per Day: 1.5 hours per day OT IPOC Problems: Decreased Activ Tolerance, Decreased UE Strength, Impaired Funct Balance, Impaired I ADL's, Impaired Self-Care Skills OT Treatment, Training and Edu: Yes Plan of Care: ADL Retraining, Functional Mobility, Group Exercise/Act as Ind, UE Funct Exercise/Act Treatment Duration: Aug 14, 2021 Frequency: At least 5 of 7 days/Wk (IRF) Estimated Hrs Per Day: 1.5 hours per day (60-90 min/day) ST IPOC Speech Therapy Treatment Plan: Discontinue ST Treatment Duration: Aug 03, 2021 Frequency: Modified Program (IRF) Estimated Hrs Per Day: Other Ukrainian Folk Arts Instructor/Case Mgmt Ukrainian Folk Arts Instructor/Case Managemen: Discharge Planning Dietitian/Internal Combustion Engine Subassembler Dietitian/Internal Combustion Engine Subassembler to monitor nutritional status and make changes and/or recommendations as needed and work with speech pathology on dietary upgrades as the occur. Physician IPOC Medical Issues being managed closely and that require the 24 hour availability of a physician: Recent amputation with labile sugars and severe neuropathy with continued pain with obesity BMI 36 will require close monitoring from physician standpoint in order to monitor for any type of infection or decompensation Medical Issues: Bowel/Bladder Function, DVT Prophylaxis, Falls Precautions, Fluid/Electrolyte/Nutrition Balance, Infection Protection, Pain Management, Wound Care Brief Synthesis of Preadmission Screen, Post-Admission Evaluation, and Therapy Evaluations: PT and OT will focus on regaining function with assistive devices in order to regain enough ADL independence to return back home to live with his mother Medical Prognosis: Good Anticipated Length of Stay: 14 days SHLOMO PATEL DO Aug 03, 2021 06:37
[2021-08-03 07:31] VITALS: BP 177/92
[2021-08-03] MEDS: inSUlin ASPART (NovoLOG) 1 UNIT/0.01 ML (CHARGE PER UNIT) SC SCH ×4 (08:00→18:11)
[2021-08-03] MEDS ORDERED: NON-FORMULARY MEDICATION 1 EA EA (Aripiprazole 5 MG) PO SCH (09:00)
[2021-08-03] MEDS ORDERED: NON-FORMULARY MEDICATION 1 EA EA (Bupropion HCl (Bupropion Xl) 150 MG) PO SCH (09:00)
[2021-08-03] MEDS ORDERED: NON-FORMULARY MEDICATION 1 EA EA (Hydrochlorothiazide 12.5 MG) PO SCH (09:00)
[2021-08-03] MEDS ORDERED: NON-FORMULARY MEDICATION 1 EA EA (Lovastatin 20 MG) PO SCH (09:00)
--- NOTE | 2021-08-03 09:03 | Physical Therapy Daily Note ---
PT Daily Note-Current Subjective Pt. agrees to Rx. States he did not sleep as well as he had hoped. Still sore and weak from yesterday. Pt. states he would like the support of other amputees ie a support group etc Pain Location: No Pain Reported Mental Status Patient Orientation: Normal For Age Attachments: Other-See Comments (stump data analytics analyst) Transfers SCALE: Activities may be completed with or without assistive devices. 3-Pspyjveqch-yuudcyy completes the activity by him/herself with no assistance from a helper. 5-Set-up or Clean-up Assistance-helper sets up or cleans up; patient completes activity. [place] assists only prior to or following the activity. 4-Supervision or Touching Assistance-helper provides verbal cues and/or touching/steadying and/or contact guard assistance as patient completes activity. Assistance may be provided throughout the activity or intermittently. 3-Partial/Moderate Assistance-helper does LESS THAN HALF the effort. [place] lift s, holds or supports trunk or limbs, but provides less than half the effort. 2-Substantial/Maximal Assistance-helper does MORE THAN HALF the effort. [place] lifts or holds trunk or limbs and provides more than half the effort. 1-Igmbatpva-ddwrpq does ALL the effort. Patient does none of the effort to complete the activity. Or, the assistance of 2 or more helpers is required for the patient to complete the activity. If activity was not attempted, code reason: 7-Patient Refused. 9-Not Applicable-not attempted and the patient did not perform the activity before the current illness, exacerbation or injury. 10-Not Attempted due to Environmental Limitations-(lack of equipment, weather restraints, etc.). 88-Not Attempted due to Medical Conditions or Safety Concerns. Roll Left & Right (QC): 6 Sit to Lying (QC): 6 Lying to Sitting/Side of Bed(Q: 6 Sit to Stand (QC): 4 Chair/Xmx-dk-Nfuqx Xfer(QC): 4 Toilet Transfer (QC): 4 SPTs with FWW left and right CGA and guidance Weight Bearing Right Lower Extremity: Right Non Weight Bearing Left Lower Extremity: Left Full Weight Bearing Gait Training Does the Patient Walk?: Yes Walk 10 feet (QC): 4 Gait Persons Needed: 1 Gait Assistive Device: FWW pt. ambulated 15ft x 3 FWW w/c to follow, fatigues quickly Wheelchair Training Does the Pt Use a Wheelchair?: Yes Wheel 50 ft with 2 turns (QC): 6 Type of Wheelchair: Manual pt. in indep with braking and placing leg rst off on, pt. demonstrated he can manage well in fig 8s and narrow tight areas Exercises Supine Ex: LE Protocol, Ankle pumps, Quad Set, Rolling, Glut sets, Heel Slides, Short Arc Quads, Scooting, Straight leg raise, Hip abd/add (sidelying) Supine Reps: 15 prone amputee ex for glut sets, rigt hip ext, hamstring curls, hip flexor stret ches etc all x 15 and rest breaks Treatments TRFs, gait , therex, wc mob, pt. demonstrated indep in donning data analytics analyst indep and appropriately Assessment Current Status: Good Progress fatigues easily and needs rest PT Short Term Goals Short Term Goals Time Frame: Aug 09, 2021 Roll Left & Right: 6 Sit to lyin Lying to sitting on side of be: 6 Sit to stand: 4 (CGA) Chair/plr-yh-ekama transfer: 4 (SBA) Walk 10 feet: 4 (SBA) Walk 50 feet with two turns: 4 (SBA) PT Hotel Recreational Facilities Manager Goals Hotel Recreational Facilities Manager Goals PT Hotel Recreational Facilities Manager Goals Time Frame: August 23, 2021 Roll Left & Right (QC): 6 Sit to Lying (QC): 6 Lying-Sitting on Side/Bed(QC): 6 Sit to Stand (QC): 6 Chair/Xar-ne-Nfmty Xfer(QC): 6 Toilet Transfer (QC): 6 Car Transfer (QC): 4 Does the Patient Walk: Yes Walk 10 feet (QC): 4 Walk 50ft with 2 Turns (QC): 4 Walk 150 ft (QC): 4 Walking 10ft on Uneven Surface: 4 1 Step (curb) (QC): 4 4 Steps (QC): 4 12 Steps (QC): 88 Picking up an Object (QC): 6 Wheel 50 feet with 2 turns (QC: 9 Wheel 150 feet: 9 PT Plan Treatment/Plan Treatment Plan: Continue Plan of Care Treatment Plan: Bed Mobility, Education, Functional Activity Teodoro, Functional Strength, Group Therapy, Gait, Safety, Therapeutic Exercise, Transfers Treatment Duration: August 23, 2021 Frequency: At least 5 of 7 days/Wk (IRF) Estimated Hrs Per Day: 1.5 hours per day Patient and/or Family Agrees t: Yes Safety Risks/Education Patient Education: Gait Training, Transfer Techniques, Correct Positioning, W/C Management, Disease Process, Safety Issues Teaching Recipient: Patient Teaching Methods: Demonstration, Discussion Response to Teaching: Verbalize Understanding, Return Demonstration, Reinforcement Needed Time/GCodes Time In: 800 Time Out: 900 Total Billed Treatment Time: 60 Total Billed Treatment 1,FA25m,GT15m,EX20m SUN TUTTLE HEAD CUSTODIAN Aug 03, 2021 09:02
[2021-08-03] MEDS: DOCUSATE SODIUM 100 MG (COLACE) CAP PO SCH ×2 (09:05→18:20)
[2021-08-03] MEDS: polyethylene glycoL POWDER 17 GM (MIRALAX) PACK PO SCH ×2 (09:06→18:20)
[2021-08-03] MEDS: SENNA W/DOCUSATE (SENOKOT S) TABLET PO SCH ×2 (09:06→18:20)
[2021-08-03] MEDS: ASPIRIN E.C. 81 MG (ECOTRIN) TAB PO SCH (09:20)
[2021-08-03] MEDS: lisINopril 20 MG (PRINIVIL) TABLET PO SCH (09:21)
[2021-08-03] MEDS: buPROPion SR 150 MG (WELLBUTRIN SR) TAB PO SCH (09:21)
[2021-08-03] MEDS: PANTOPRAZOLE 20 MG TABLET (PROTONIX) PO SCH ×2 (09:21→20:59)
[2021-08-03] MEDS: DOXYCYCLINE 100 MG (VIBRAMYCIN) TABLET PO SCH ×2 (09:21→20:59)
[2021-08-03] MEDS: metFORMIN XR 500 MG (GLUCOPHAGE XR) TAB PO SCH (09:21)
[2021-08-03] MEDS: SIMvastatin 10 MG (ZOCOR) TAB PO SCH (09:21)
--- NOTE | 2021-08-03 09:58 | ST Cognitive Linguistic Eval ---
Speech Evaluation-General Medical Diagnosis right BKA Onset Date: Jul 26, 2021 Therapy Diagnosis Therapy Diagnosis: Intact Cognitive Linguistic Skills Precautions Precautions: Fall Precautions/Isolations: Fall Prevention, Standard Precautions Referral Referring Physician: Dr. Bernadette Kiser Reason for Referral: Evaluation/Treatment Medical History Pertinent Medical History: DM, HTN Current History The patient is a 50 year-old male with a past medical history of diabetes insulin-dependent, severe neuropathy, and obesity, who arrives to the acute rehabilitation unit following a right BKA. Reviewed History: Yes Social History Current Living Status: Other Family (mother) Speech PLF-Current Status Prior Level of Function The patient denied prior or current difficulties with his speech, language, cognition, or swallowing. Subjective The patient was seated upright at the edge of bed, awake and alert upon entrance to his room by the clinician. The patient greeted the clinician appropriately and was agreeable to participation in the cognitive linguistic assessment. Language Eval: Auditory Comprehends Simple Yes/No Ques: Functional Indent/Objects [place]: Functional Ident/Pics in [place]: Functional Follows 1-Step Commands: Functional Follows Complex Directions: Functional Follows General Conversations: Functional Language Eval: Verbal Language Completes Spontaneous Greeting: Functional Produces Auto, Serial Info: Functional Imitates Simple Words/Phrases: Functional Word Finding: Functional Requests Basic Needs: Functional States Basic Personal Info: Functional Expresses Complex Ideas: Functional Language Evaluation: Reading Follows Simple Written Direct: Functional Language Evaluation: Writing Writes to Simple Dictation: Functional Cognitive Patient Orientation The patient was independently oriented to self, location, month, day of week, date, and year. Objective Cognitive Domain Attention: WNL Memory: WNL Problem Solving: Functional Executive Functions: WNL Visuospatial Skills: WNL Composite Severity Rating: WNL Clock Drawing Severity Rating: WNL Objective Formal/Standardized Tests [facility] Mental Status Exam (UMS) Results The patient demonstrated a result of +27/30 on the SLUMS correlating to normal neurocognitive function. Oral Motor/Speech Production The patient does not display dysarthria or apraxia of speech. The patient is 100% intelligible in known and unknown contexts. Impression The patient demonstrated intact neurocognitive function. The patient received two points deducted from his score due to an error with subtraction and one point subtracted as he recalled four of five single words following a delay. Speech Patient Assess Expression of Ideas/Wants: Expression (4) Understanding Verbal Content: Understands (4) Brief Interview-Mental Status: Yes Repetition of Three Words: Three (3) Temporal Orientation: Year: Correct (3) Temporal Orientation: Month: Accurate within 5 days(2) Temporal Orientation: Day: Correct (1) Recall : Wear to say "Sock": Yes, no cue required (2) Recall : Color: Yes, no cue required (2) Recall : Bed: Yes,after cueing (1) Memory/Recall Ability: Current season, Staff names and faces, That he or she is in a hsp/hsp unit Speech-Plan Treatment Plan Speech Therapy Treatment Plan: Discontinue ST Treatment Duration: Aug 03, 2021 Frequency: 1 time per week Estimated Hrs Per Day: .5 hour per day Rehab Potential: Good Pt/Family Agrees to Plan: Yes Safety Risks/Education Teaching Recipient: Patient Teaching Methods: Discussion Response to Teaching: Verbalize Understanding Education Topics Provided: Results of DONALD, Plan of Care Time Speech Therapy Time In: 09:30 Speech Therapy Time Out: 10:00 Total Billed Time: 30 Billed Treatment Time 1, ARTURO BOBBY [facility] ST Aug 03, 2021 09:58
--- NOTE | 2021-08-03 11:43 | Occupational Ther Daily Note ---
OT Current Status-Daily Note Subjective Pt supine in bed and agreed to OT tx. Mental Status/Objective Patient Orientation: Person, Place, Time, Situation ADL-Treatment Therapy Code Descriptions/Definitions Functional [place] Measure: 0=Not Assessed/NA 4=Minimal Assistance 1=Total Assistance 5=Supervision or Setup 2=Maximal Assistance 6=Modified [place] 3=Moderate Assistance 7=Complete IndependenceSCALE: Activities may be completed with or without assistive devices. 7-Mgqstyzxdn-jiyqszc completes the activity by him/herself with no assistance from a helper. 5-Set-up or Clean-up Assistance-helper sets up or cleans up; patient completes activity. [place] assists only prior to or following the activity. 4-Supervision or Touching Assistance-helper provides verbal cues and/or touching/steadying and/or contact guard assistance as patient completes activity. Assistance may be provided throughout the activity or intermittently. 3-Partial/Moderate Assistance-helper does LESS THAN HALF the effort. [place] lifts, holds or supports trunk or limbs, but provides less than half the effort. 2-Substantial/Maximal Assistance-helper does MORE THAN HALF the effort. [place] lifts or holds trunk or limbs and provides more than half the effort. 8-Yzxlluiyl-edarje does ALL the effort. Patient does none of the effort to complete the activity. Or, the assistance of 2 or more helpers is required for the patient to complete the activity. If activity was not attempted, code reason: 7-Patient Refused. 9-Not Applicable-not attempted and the patient did not perform the activity before the current illness, exacerbation or injury. 10-Not Attempted due to Environmental Limitations-(lack of equipment, weather restraints, etc.). 88-Not Attempted due to Medical Conditions or Safety Concerns. Other Treatment Pt transferred for supine to EOB to w/c at [facility]. Pt propelled self to therapy gym. Pt completed arm bike exercise at 4 aldana for 10min to increase arm strength and to increase activity tolerance. Pt then participated in standing tolerance activity by placing resistive clips onto metal line with each hand to also increase hand strength. Pt completed 3lb arm exercises to increase BUE strength and to increase activity tolerance by completing elbow flexion/extension, shoulder flexion/abduction, punch outs and arm circles 2x through completing 10 reps each. Pt then completed red theraputty activity by removing 13 bends out of resistive putty to increase hand strength. Once finished, pt propelled self in w/c to room and transferred self to EOB at [facility]. Pt in bed at end of tx with call light in reach and all needs met. OT Short Term Goals Short Term Goals Time Frame: Aug 09, 2021 Eatin Oral hygiene: 6 Toileting hygiene: 4 Shower/bathe self: 4 Upper body dressin Lower body dressin Putting on/taking off footwear: 5 OT Finance Specialist Goals Shelter Goals Time Frame: Aug 14, 2021 Eating (QC): 6 Oral Hygiene (QC): 6 Toileting Hygiene (QC): 6 Shower/Bathe Self (QC): 6 Upper Body Dressing (QC): 6 Lower Body Dressing (QC): 6 On/Off Footwear (QC): 6 1=Demonstrate adherence to instructed precautions during ADL tasks. 2=Patient will verbalize/demonstrate understanding of assistive devices/modifications for ADL. 3=Patient will improve strength/tolerance for activity to enable patient to perform ADL's. OT Education/Plan Problem List/Assessment Assessment: Decreased Activ Tolerance, Decreased UE Strength, Impaired Coordination, Impaired Funct Balance, Impaired I ADL's, Impaired Self-Care Skills Discharge Recommendations Plan/Recommendations: Continue POC Treatment Plan/Plan of Care Patient would benefit from OT for education, treatment and training to promote independence in ADL's, mobility, safety and/or upper extremity function for ADL's. Plan of Care: ADL Retraining, Functional Mobility, Group Exercise/Act as Ind, Orthotic Fitting/Training, UE Funct Exercise/Act Treatment Duration: Aug 14, 2021 Frequency: At least 5 of 7 days/Wk (IRF) Estimated Hrs Per Day: 1.5 hours per day (60-90 min/day) Rehab Potential: Good Time/GCodes Start Time: 10:30 Stop Time: 11:30 Total Time Billed (hr/min): 60 Billed Treatment Time 1 visit, 1, EX 3 (40min), FA (20min) Sejal Feliz Aug 03, 2021 11:43
--- NOTE | 2021-08-03 13:29 | Physical Therapy Daily Note ---
PT Daily Note-Current Subjective Pt. agrees to Rx. Pain Location: No Pain Reported Mental Status Patient Orientation: Normal For Age Transfers SCALE: Activities may be completed with or without assistive devices. 9-Gjcvsowmmh-rtbsxbx completes the activity by him/herself with no assistance from a helper. 5-Set-up or Clean-up Assistance-helper sets up or cleans up; patient completes activity. [place] assists only prior to or following the activity. 4-Supervision or Touching Assistance-helper provides verbal cues and/or touching/steadying and/or contact guard assistance as patient completes activity. Assistance may be provided throughout the activity or intermittently. 3-Partial/Moderate Assistance-helper does LESS THAN HALF the effort. [place] lifts, holds or supports trunk or limbs, but provides less than half the effort. 2-Substantial/Maximal Assistance-helper does MORE THAN HALF the effort. [place] lifts or holds trunk or limbs and provides more than half the effort. 2-Yevrcsskm-gwaxvu does ALL the effort. Patient does none of the effort to complete the activity. Or, the assistance of 2 or more helpers is required for the patient to complete the activity. If activity was not attempted, code reason: 7-Patient Refused. 9-Not Applicable-not attempted and the patient did not perform the activity before the current illness, exacerbation or injury. 10-Not Attempted due to Environmental Limitations-(lack of equipment, weather restraints, etc.). 88-Not Attempted due to Medical Conditions or Safety Concerns. rolling left and rigt indep Weight Bearing Right Lower Extremity: Right Non Weight Bearing Left Lower Extremity: Left Full Weight Bearing Exercises Supine Ex: Bridging, Ankle pumps, Quad Set, Rolling, Glut sets, Heel Slides, Short Arc Quads, Scooting, Straight leg raise, Hip abd/add Supine Reps: 0 Assessment Current Status: Good Progress PT Short Term Goals Short Term Goals Time Frame: Aug 09, 2021 Roll Left & Right: 6 Sit to lyin Lying to sitting on side of be: 6 Sit to stand: 4 (CGA) Chair/gjo-gp-cpngj transfer: 4 (SBA) Walk 10 feet: 4 (SBA) Walk 50 feet with two turns: 4 (SBA) PT Senior Living Goals Senior Living Goals PT Air Brake Mechanic Goals Time Frame: August 23, 2021 Roll Left & Right (QC): 6 Sit to Lying (QC): 6 Lying-Sitting on Side/Bed(QC): 6 Sit to Stand (QC): 6 Chair/Unx-od-Plrmd Xfer(QC): 6 Toilet Transfer (QC): 6 Car Transfer (QC): 4 Does the Patient Walk: Yes Walk 10 feet (QC): 4 Walk 50ft with 2 Turns (QC): 4 Walk 150 ft (QC): 4 Walking 10ft on Uneven Surface: 4 1 Step (curb) (QC): 4 4 Steps (QC): 4 12 Steps (QC): 88 Picking up an Object (QC): 6 Wheel 50 feet with 2 turns (QC: 9 Wheel 150 feet: 9 PT Plan Treatment/Plan Treatment Plan: Continue Plan of Care Treatment Plan: Bed Mobility, Education, Functional Activity Teodoro, Functional Strength, Group Therapy, Gait, Safety, Therapeutic Exercise, Transfers Treatment Duration: August 23, 2021 Frequency: At least 5 of 7 days/Wk (IRF) Estimated Hrs Per Day: 1.5 hours per day Patient and/or Family Agrees t: Yes Safety Risks/Education Patient Education: Correct Positioning Teaching Recipient: Patient Teaching Methods: Demonstration, Discussion Response to Teaching: Verbalize Understanding, Return Demonstration, Reinforcement Needed Time/GCodes Time In: 1300 Time Out: 1330 Total Billed Treatment Time: 30 Total Billed Treatment 1,EX30m SUN TUTTLE BENCH TECHNICIAN Aug 03, 2021 13:29
--- NOTE | 2021-08-03 13:54 | Occupational Ther Daily Note ---
OT Current Status-Daily Note Subjective Pt sitting EOB at beginning of tx and agreed to OT tx. Mental Status/Objective Patient Orientation: Person, Place, Time, Situation ADL-Treatment Therapy Code Descriptions/Definitions Functional [place] Measure: 0=Not Assessed/NA 4=Minimal Assistance 1=Total Assistance 5=Supervision or Setup 2=Maximal Assistance 6=Modified [place] 3=Moderate Assistance 7=Complete IndependenceSCALE: Activities may be completed with or without assistive devices. 2-Vpjrjbcgxp-lhzbykp completes the activity by him/herself with no assistance from a helper. 5-Set-up or Clean-up Assistance-helper sets up or cleans up; patient completes activity. [place] assists only prior to or following the activity. 4-Supervision or Touching Assistance-helper provides verbal cues and/or touching/steadying and/or contact guard assistance as patient completes activity. Assistance may be provided throughout the activity or intermittently. 3-Partial/Moderate Assistance-helper does LESS THAN HALF the effort. [place] lifts, holds or supports trunk or limbs, but provides less than half the effort. 2-Substantial/Maximal Assistance-helper does MORE THAN HALF the effort. [place] lifts or holds trunk or limbs and provides more than half the effort. 8-Gihxzwqbt-nyfqqy does ALL the effort. Patient does none of the effort to comp lete the activity. Or, the assistance of 2 or more helpers is required for the patient to complete the activity. If activity was not attempted, code reason: 7-Patient Refused. 9-Not Applicable-not attempted and the patient did not perform the activity before the current illness, exacerbation or injury. 10-Not Attempted due to Environmental Limitations-(lack of equipment, weather restraints, etc.). 88-Not Attempted due to Medical Conditions or Safety Concerns. Toileting Hygiene (QC): 3 (Rolando) Toilet Transfer (QC): 4 (Steady Assist) Other Treatment Pt sitting EOB and requested to use restroom. Pt transferred to toilet using FWW with CGA. Pt was able to pull pants over bottom, and perform hygiene. Pt required Rol[place] to pull pants over bottom on R side. Pt then transferred to w/c from [facility] and propelled self to therapy gym. Pt request to complete arm exercises to strengthen his arms. Pt completed 3lb arm exercises to increase BUE strength and to increase activity tolerance by completing elbow flexion/extension, shoulder flexion/abduction, punch outs and arm circles 2x through completing 10 reps each. Pt required 3 breaks throughout the exercise. Pt then propelled self back to room and then transferred to EOB with FWW. Pt EOB with call light in reach and all needs met. OT Short Term Goals Short Term Goals Time Frame: Aug 09, 2021 Eatin Oral hygiene: 6 Toileting hygiene: 4 Shower/bathe self: 4 Upper body dressin Lower body dressin Putting on/taking off footwear: 5 OT Aerial Hurricane Hunter Goals Aerial Hurricane Hunter Goals Time Frame: Aug 14, 2021 Eating (QC): 6 Oral Hygiene (QC): 6 Toileting Hygiene (QC): 6 Shower/Bathe Self (QC): 6 Upper Body Dressing (QC): 6 Lower Body Dressing (QC): 6 On/Off Footwear (QC): 6 1=Demonstrate adherence to instructed precautions during ADL tasks. 2=Patient will verbalize/demonstrate understanding of assistive devices/modifications for ADL. 3=Patient will improve strength/tolerance for activity to enable patient to p erform ADL's. OT Education/Plan Problem List/Assessment Assessment: Decreased Activ Tolerance, Decreased UE Strength, Impaired Coordination, Impaired Funct Balance, Impaired I ADL's, Impaired Self-Care Skills Discharge Recommendations Plan/Recommendations: Continue POC Treatment Plan/Plan of Care Patient would benefit from OT for education, treatment and training to promote independence in ADL's, mobility, safety and/or upper extremity function for ADL's. Plan of Care: ADL Retraining, Functional Mobility, Group Exercise/Act as Ind, Orthotic Fitting/Training, UE Funct Exercise/Act Treatment Duration: Aug 14, 2021 Frequency: At least 5 of 7 days/Wk (IRF) Estimated Hrs Per Day: 1.5 hours per day (60-90 min/day) Rehab Potential: Good Time/GCodes Start Time: 13:30 Stop Time: 14:00 Total Time Billed (hr/min): 30 Billed Treatment Time 1 visit: 1, ADL (15min), EX (15min) Sejal Feliz Aug 03, 2021 13:54
[2021-08-03 19:43] VITALS: BP 165/79
[2021-08-04] MEDS: HYDROcodone/APAP 7.5 MG/325 MG (LORTAB, LORCET PLUS) TABLET PO PRN ×5 (03:26→20:53)
--- NOTE | 2021-08-04 06:58 | PM&R Progress Note ---
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 Review of Systems General: Fatigue, Malaise Musculoskeletal: leg pain Objective Exam Vital Signs Vital Signs Date Time Temp Pulse Resp B/P (MAP) Pulse Ox O2 Delivery O2 Flow Rate FiO2 08/04/21 20:55 95 Room Air 08/04/21 20:00 36.7 73 18 159/81 (107) Capillary Refill : General Appearance: No Apparent Distress, WD/WN, Chronically ill, Obese HEENT: PERRL/EOMI, Normal ENT Inspection, Pharynx Normal Neck: Full Range of Motion, Normal Inspection, Non Tender, Supple, Carotid Bruit Respiratory: Chest Non Tender, Lungs Clear, Normal Breath Sounds, No Accessory Muscle Use, No Respiratory Distress Cardiovascular: Regular Rate, Rhythm, No Edema, No Gallop, No JVD, No Murmur, Normal Peripheral Pulses Gastrointestinal: Normal Bowel Sounds, No Organomegaly, No Pulsatile Mass, Non Tender, Soft Back: Normal Inspection, No CVA Tenderness, No Vertebral Tenderness Extremity: Normal Capillary Refill, Normal Inspection, Normal Range of Motion (Right BKA), Non Tender, No Calf Tenderness, No Pedal Edema Neurologic/Psychiatric: Alert, Oriented x3, No Motor/Sensory Deficits, Normal Mood/Affect, public relations intern II-XII Norm as Tested, Abnormal Gait, Motor Weakness (Generalized) Skin: Normal Color, Warm/Dry Lymphatic: No Adenopathy Results/Procedures Lab Patient resulted labs reviewed. FIM Transfers Therapy Code Descriptions/Definitions Functional [place] Measure: 0=Not Assessed/NA 4=Minimal Assistance 1=Total Assistance 5=Supervision or Setup 2=Maximal Assistance 6=Modified [place] 3=Moderate Assistance 7=Complete IndependenceSCALE: Activities may be completed with or without assistive devices. 0-Nzwuqkzdzh-zrdupir completes the activity by him/herself with no assistance from a helper. 5-Set-up or Clean-up Assistance-helper sets up or cleans up; patient completes activity. [place] assists only prior to or following the activity. 4-Supervision or Touching Assistance-helper provides verbal cues and/or touching/steadying and/or contact guard assistance as patient completes activity. Assistance may be provided throughout the activity or intermittently. 3-Partial/Moderate Assistance-helper does LESS THAN HALF the effort. [place] lifts, holds or supports trunk or limbs, but provides less than half the effort. 2-Substantial/Maximal Assistance-helper does MORE THAN HALF the effort. [place] lifts or holds trunk or limbs and provides more than half the effort. 8-Ztmntrgox-uplhzm does ALL the effort. Patient does none of the effort to complete the activity. Or, the assistance of 2 or more helpers is required for the patient to complete the activity. If activity was not attempted, code reason: 7-Patient Refused. 9-Not Applicable-not attempted and the patient did not perform the activity before the current illness, exacerbation or injury. 10-Not Attempted due to Environmental Limitations-(lack of equipment, weather restraints, etc.). 88-Not Attempted due to Medical Conditions or Safety Concerns. Roll Left to Right (QC): 6 Sit to Lying (QC): 6 Sit to Stand (QC): 4 Chair/Koe-ku-Qncbq Xfer(QC): 4 Car Transfer (QC): 3 Gait Training Does the Patient Walk?: Yes Walk 10 feet (QC): 4 Walk 50 ft with 2 Turns(QC): 88 Walk 150 ft (QC): 88 Walking 10ft/uneven surface-QC: 4 Gait Persons Needed: 1 Gait Assistive Device: FWW Wheelchair Training Does the Pt Use a Wheelchair?: Yes Wheel 50 ft with 2 turns (QC): 6 Wheel 150 ft (QC): 10 Type of Wheelchair: Manual Stair Training 1 Step (curb) (QC): 88 4 Steps (QC): 88 12 Steps (QC): 88 Balance Picking up an Object (QC): 4 (using jacquard lace weaver) ADL-Treatment Eating (QC): 6 (per clinical judgment) Oral Hygiene (QC): 5 (per clinical judgment) Shower/Bathe Self (QC): 7 Upper Body Dressing (QC): 5 (per clinical judgment) Lower Body Dressing (QC): 3 (per clinical judgment) On/Off Footwear (QC): 5 (Set up) Toileting Hygiene (QC): 3 (Rolando) Toilet Transfer (QC): 4 (Steady Assist) Assessment/Plan Assessment and Plan Assess & Plan/Chief Complaint Assessment: Status post right BKA Diabetes insulin-dependent Hypertension Hyperlipidemia Mood disorder Obesity Severe neuropathy Plan: Supportive care Aggressive rehab Pain control 08/03/2021: Monitor insulin and sugar Supportive care 08/04/2021: Continue aggressive therapy Insulin (1) Hx of right BKA (2) Diabetes mellitus, insulin dependent (IDDM), uncontrolled (3) Obesity (4) Hypertension (5) Hyperlipidemia (6) Neuropathy (7) Mood disorder SHLOMO PATEL DO Aug 04, 2021 06:58
[2021-08-04] MEDS: metFORMIN XR 500 MG (GLUCOPHAGE XR) TAB PO SCH (07:38)
[2021-08-04] MEDS: inSUlin ASPART (NovoLOG) 1 UNIT/0.01 ML (CHARGE PER UNIT) SC SCH ×3 (07:38→16:19)
[2021-08-04] MEDS: PANTOPRAZOLE 20 MG TABLET (PROTONIX) PO SCH ×2 (07:39→20:52)
[2021-08-04] MEDS: buPROPion SR 150 MG (WELLBUTRIN SR) TAB PO SCH (07:39)
[2021-08-04] MEDS: ASPIRIN E.C. 81 MG (ECOTRIN) TAB PO SCH (07:39)
[2021-08-04] MEDS: lisINopril 20 MG (PRINIVIL) TABLET PO SCH (07:39)
[2021-08-04] MEDS: DOXYCYCLINE 100 MG (VIBRAMYCIN) TABLET PO SCH ×2 (07:39→20:52)
[2021-08-04] MEDS: SIMvastatin 10 MG (ZOCOR) TAB PO SCH (07:39)
[2021-08-04 08:00] VITALS: BP 172/93
[2021-08-04] MEDS: DOCUSATE SODIUM 100 MG (COLACE) CAP PO SCH ×2 (08:37→20:59)
[2021-08-04] MEDS: SENNA W/DOCUSATE (SENOKOT S) TABLET PO SCH ×2 (08:37→21:00)
[2021-08-04] MEDS: polyethylene glycoL POWDER 17 GM (MIRALAX) PACK PO SCH ×2 (08:37→20:59)
--- NOTE | 2021-08-04 08:59 | Physical Therapy Daily Note ---
PT Daily Note-Current Subjective Pt. agrees to Rx. Pt. states he has felt a little weak and sore. Pt. states he has been walking to and from [facility] with SBA and FWW. During Rx pt. c/o dizziness and being hot and sweaty. Pain Numeric Pain Scale: 4 Location: Medial Location Body Site: Back Pain Description: Ache Appearance diaphoretic, c/o dizzy, nurse alerted and FSBS taken at 246. 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 6-Ykcsaojmhj-zcthvlw completes the activity by him/herself with no assistance from a helper. 5-Set-up or Clean-up Assistance-helper sets up or cleans up; patient completes activity. [place] assists only prior to or following the activity. 4-Supervision or Touching Assistance-helper provides verbal cues and/or touching/steadying and/or contact guard assistance as patient completes activity. Assistance may be provided throughout the activity or intermittently. 3-Partial/Moderate Assistance-helper does LESS THAN HALF the effort. [place] lifts, holds or supports trunk or limbs, but provides less than half the effort. 2-Substantial/Maximal Assistance-helper does MORE THAN HALF the effort. [place] lifts or holds trunk or limbs and provides more than half the effort. 4-Wmzqlyoio-ueizsi does ALL the effort. Patient does none of the effort to complete the activity. Or, the assistance of 2 or more helpers is required for the patient to complete the activity. If activity was not attempted, code reason: 7-Patient Refused. 9-Not Applicable-not attempted and the patient did not perform the activity before the current illness, exacerbation or injury. 10-Not Attempted due to Environmental Limitations-(lack of equipment, weather restraints, etc.). 88-Not Attempted due to Medical Conditions or Safety Concerns. Roll Left & Right (QC): 6 Sit to Lying (QC): 6 Lying to Sitting/Side of Bed(Q: 6 Sit to Stand (QC): 6 Chair/Wkn-xx-Vukvp Xfer(QC): 6 Toilet Transfer (QC): 6 Weight Bearing Right Lower Extremity: Right Non Weight Bearing Left Lower Extremity: Left Full Weight Bearing Gait Training Does the Patient Walk?: Yes Walk 10 feet (QC): 4 Gait Persons Needed: 1 Gait Assistive Device: FWW 25-30 ft x 2 with pt. c/o fatigue and dizziness. Wheelchair Training Does the Pt Use a Wheelchair?: Yes Wheel 50 ft with 2 turns (QC): 6 Wheel 150 ft (QC): 6 Type of Wheelchair: Manual Exercises Supine Ex: Bridging, Ankle pumps, Quad Set, Rolling, Glut sets, Heel Slides, Short Arc Quads, Scooting, Straight leg raise, Hip abd/add Supine Reps: 15 NuStep Minutes: 8 NuStep Workload: 1 Treatments sup and prone amputee ex and stretches x 15, BP148/76 HR 73, O2sats 97% , FSBS 246, pt. in bed after above described Rx with nurse to assess pts. c/o, cold clothe etc Assessment Current Status: Fair Progress limited tolerance for Rx today, dizzy and diaphoretic c/o PT Short Term Goals Short Term Goals Time Frame: Aug 09, 2021 Roll Left & Right: 6 Sit to lyin Lying to sitting on side of be: 6 Sit to stand: 4 (CGA) Chair/omc-kp-esjan transfer: 4 (SBA) Walk 10 feet: 4 (SBA) Walk 50 feet with two turns: 4 (SBA) PT Application Performance Engineer Goals Application Performance Engineer Goals PT Application Performance Engineer Goals Time Frame: August 23, 2021 Roll Left & Right (QC): 6 Sit to Lying (QC): 6 Lying-Sitting on Side/Bed(QC): 6 Sit to Stand (QC): 6 Chair/Vgz-ke-Gvzzf Xfer(QC): 6 Toilet Transfer (QC): 6 Car Transfer (QC): 4 Does the Patient Walk: Yes Walk 10 feet (QC): 4 Walk 50ft with 2 Turns (QC): 4 Walk 150 ft (QC): 4 Walking 10ft on Uneven Surface: 4 1 Step (curb) (QC): 4 4 Steps (QC): 4 12 Steps (QC): 88 Picking up an Object (QC): 6 Wheel 50 feet with 2 turns (QC: 9 Wheel 150 feet: 9 PT Plan Treatment/Plan Treatment Plan: Continue Plan of Care Treatment Plan: Bed Mobility, Education, Functional Activity Teodoro, Functional Strength, Group Therapy, Gait, Safety, Therapeutic Exercise, Transfers Treatment Duration: August 23, 2021 Frequency: At least 5 of 7 days/Wk (IRF) Estimated Hrs Per Day: 1.5 hours per day Patient and/or Family Agrees t: Yes Safety Risks/Education Patient Education: Gait Training, Transfer Techniques, Reviewed Precautions, Correct Positioning, Disease Process, Safety Issues Teaching Recipient: Patient Teaching Methods: Demonstration, Discussion Response to Teaching: Verbalize Understanding, Return Demonstration, Reinforcement Needed Time/GCodes Time In: 800 Time Out: 900 Total Billed Treatment Time: 60 Total Billed Treatment 1,EX25m,FA20m,GT15m SUN TUTTLE BILL PEDDLER Aug 04, 2021 08:59
[2021-08-04] MEDS: ONDANSETRON 4 MG (ZOFRAN) ORAL DISSOLVE TAB PO PRN (10:03)
--- NOTE | 2021-08-04 10:56 | Occupational Ther Daily Note ---
OT Current Status-Daily Note Subjective Pt in supine in bed with nursing in room and stated he was feeling nauseous and sore from PT this morning. 6/10 pain in lower back. Mental Status/Objective Patient Orientation: Person, Place, Time, Situation ADL-Treatment Therapy Code Descriptions/Definitions Functional [place] Measure: 0=Not Assessed/NA 4=Minimal Assistance 1=Total Assistance 5=Supervision or Setup 2=Maximal Assistance 6=Modified [place] 3=Moderate Assistance 7=Complete IndependenceSCALE: Activities may be completed with or without assistive devices. 5-Bqcdsioddb-fvzeoqw completes the activity by him/herself with no assistance from a helper. 5-Set-up or Clean-up Assistance-helper sets up or cleans up; patient completes activity. [place] assists only prior to or following the activity. 4-Supervision or Touching Assistance-helper provides verbal cues and/or touching/steadying and/or contact guard assistance as patient completes activity. Assistance may be provided throughout the activity or intermittently. 3-Partial/Moderate Assistance-helper does LESS THAN HALF the effort. [place] lifts, holds or supports trunk or limbs, but provides less than half the effort. 2-Substantial/Maximal Assistance-helper does MORE THAN HALF the effort. [place] lifts or holds trunk or limbs and provides more than half the effort. 6-Kpuhpyrkn-mtdfif does ALL the effort. Patient does none of the effort to complete the activity. Or, the assistance of 2 or more helpers is required for the patient to complete the activity. If activity was not attempted, code reason: 7-Patient Refused. 9-Not Applicable-not attempted and the patient did not perform the activity before the current illness, exacerbation or injury. 10-Not Attempted due to Environmental Limitations-(lack of equipment, weather restraints, etc.). 88-Not Attempted due to Medical Conditions or Safety Concerns. Other Treatment Pt declined a shower at this time due to not having clean clothes and stating that family would bring them later in the day. Pt transferred to supine to EOB to w/c at [facility]. Pt propelled self to therapy gym need 1 rest break. Pt completed arm bike exercise to increase activity tolerance and BUE strength at 4 aldana for 10min. Pt completed 3lb arm exercises to increase BUE strength and to increase activity tolerance by completing elbow flexion/extension, shoulder flexion/abduction, punch outs and arm circles 2x through completing 10 reps each. Pt then completed green theraputty activity by removing 23 bends out of resistive putty to increase hand strength. Pt also completed perforator typist strengthening exercises with green theraputty by squeezing the putty. Pt then participated in throwing and catching activity, requiring 1 rest break to increase activity tolerance. Pt propelled self back to room and transferred to bed. Pt supine in bed with call light in reach and all needs met OT Short Term Goals Short Term Goals Time Frame: Aug 09, 2021 Eatin Oral hygiene: 6 Toileting hygiene: 4 Shower/bathe self: 4 Upper body dressin Lower body dressin Putting on/taking off footwear: 5 OT Health Outreach Worker Goals Care Home Goals Time Frame: Aug 14, 2021 Eating (QC): 6 Oral Hygiene (QC): 6 Toileting Hygiene (QC): 6 Shower/Bathe Self (QC): 6 Upper Body Dressing (QC): 6 Lower Body Dressing (QC): 6 On/Off Footwear (QC): 6 1=Demonstrate adherence to instructed precautions during ADL tasks. 2=Patient will verbalize/demonstrate understanding of assistive devices/modifications for ADL. 3=Patient will improve strength/tolerance for activity to enable patient to perform ADL's. OT Education/Plan Problem List/Assessment Assessment: Decreased Activ Tolerance, Decreased UE Strength, Impaired Coordination, Impaired Funct Balance, Impaired I ADL's, Impaired Self-Care Skills Discharge Recommendations Plan/Recommendations: Continue POC Treatment Plan/Plan of Care Patient would benefit from OT for education, treatment and training to promote independence in ADL's, mobility, safety and/or upper extremity function for AD L's. Plan of Care: ADL Retraining, Functional Mobility, Group Exercise/Act as Ind, Orthotic Fitting/Training, UE Funct Exercise/Act Treatment Duration: Aug 14, 2021 Frequency: At least 5 of 7 days/Wk (IRF) Estimated Hrs Per Day: 1.5 hours per day (60-90 min/day) Rehab Potential: Good Time/GCodes Start Time: 10:00 Stop Time: 11:00 Total Time Billed (hr/min): 60 Billed Treatment Time 1 visit- 1, EX 3 (40min), FA (20min) Sejal Feliz Aug 04, 2021 10:56
--- NOTE | 2021-08-04 11:39 | Physical Therapy Daily Note ---
PT Daily Note-Current Subjective Pt. agrees to therex. While discussing DC plans and pts Mothers home layout pt. shares again that he was told by his surgeon that he needs to use/try to use a leg crutch. This was then shared with lead PT. Pt. will need to walk about [address] to the [employer] at his Moms house. Pain Location: No Pain Reported Mental Status Patient Orientation: Normal For Age Transfers SCALE: Activities may be completed with or without assistive devices. 8-Vvnczjaqpu-jtnoiyq completes the activity by him/herself with no assistance from a helper. 5-Set-up or Clean-up Assistance-helper sets up or cleans up; patient completes activity. [place] assists only prior to or following the activity. 4-Supervision or Touching Assistance-helper provides verbal cues and/or touching/steadying and/or contact guard assistance as patient completes activity. Assistance may be provided throughout the activity or intermittently. 3-Partial/Moderate Assistance-helper does LESS THAN HALF the effort. [place] lifts, holds or supports trunk or limbs, but provides less than half the effort. 2-Substantial/Maximal Assistance-helper does MORE THAN HALF the effort. [place] lifts or holds trunk or limbs and provides more than half the effort. 9-Dblmrjyll-abftii does ALL the effort. Patient does none of the effort to complete the activity. Or, the assistance of 2 or more helpers is required for the patient to complete the activity. If activity was not attempted, code reason: 7-Patient Refused. 9-Not Applicable-not attempted and the patient did not perform the activity before the current illness, exacerbation or injury. 10-Not Attempted due to Environmental Limitations-(lack of equipment, weather restraints, etc.). 88-Not Attempted due to Medical Conditions or Safety Concerns. all TRFs mod I Weight Bearing Right Lower Extremity: Right Non Weight Bearing Left Lower Extremity: Left Full Weight Bearing Exercises Supine Ex: Bridging, Ankle pumps, Pelvic tilt, Quad Set, Rolling, Glut sets, Heel Slides, Short Arc Quads, Scooting, Straight leg raise, Hip abd/add Supine Reps: 15 (x2) Assessment Current Status: Good Progress pt. c/o fatigue and appears depressed , pt. mentions he is and hopes there is a chance for reconciliation PT Short Term Goals Short Term Goals Time Frame: Aug 09, 2021 Roll Left & Right: 6 Sit to lyin Lying to sitting on side of be: 6 Sit to stand: 4 (CGA) Chair/sfx-ns-iiidm transfer: 4 (SBA) Walk 10 feet: 4 (SBA) Walk 50 feet with two turns: 4 (SBA) PT Senior Living Goals Senior Living Goals PT Manufacturing Applications Engineer Goals Time Frame: August 23, 2021 Roll Left & Right (QC): 6 Sit to Lying (QC): 6 Lying-Sitting on Side/Bed(QC): 6 Sit to Stand (QC): 6 Chair/Pdz-jr-Fcnim Xfer(QC): 6 Toilet Transfer (QC): 6 Car Transfer (QC): 4 Does the Patient Walk: Yes Walk 10 feet (QC): 4 Walk 50ft with 2 Turns (QC): 4 Walk 150 ft (QC): 4 Walking 10ft on Uneven Surface: 4 1 Step (curb) (QC): 4 4 Steps (QC): 4 12 Steps (QC): 88 Picking up an Object (QC): 6 Wheel 50 feet with 2 turns (QC: 9 Wheel 150 feet: 9 PT Plan Treatment/Plan Treatment Plan: Continue Plan of Care Treatment Plan: Bed Mobility, Education, Functional Activity Teodoro, Functional Strength, Group Therapy, Gait, Safety, Therapeutic Exercise, Transfers Treatment Duration: August 23, 2021 Frequency: At least 5 of 7 days/Wk (IRF) Estimated Hrs Per Day: 1.5 hours per day Patient and/or Family Agrees t: Yes Safety Risks/Education Patient Education: Correct Positioning, Disease Process Time/GCodes Time In: 1100 Time Out: 1130 Total Billed Treatment Time: 30 Total Billed Treatment 1,EX30m SUN TUTTLE RN LPN LVN Aug 04, 2021 11:39
--- NOTE | 2021-08-04 11:58 | Occupational Ther Daily Note ---
OT Current Status-Daily Note Subjective Pt in supine in bed and agreed to OT tx. Mental Status/Objective Patient Orientation: Person, Place, Time, Situation ADL-Treatment Therapy Code Descriptions/Definitions Functional [place] Measure: 0=Not Assessed/NA 4=Minimal Assistance 1=Total Assistance 5=Supervision or Setup 2=Maximal Assistance 6=Modified [place] 3=Moderate Assistance 7=Complete IndependenceSCALE: Activities may be completed with or without assistive devices. 4-Tykdfiijfk-vfdtyna completes the activity by him/herself with no assistance from a helper. 5-Set-up or Clean-up Assistance-helper sets up or cleans up; patient completes activity. [place] assists only prior to or following the activity. 4-Supervision or Touching Assistance-helper provides verbal cues and/or touching/steadying and/or contact guard assistance as patient completes activity. Assistance may be provided throughout the activity or intermittently. 3-Partial/Moderate Assistance-helper does LESS THAN HALF the effort. [place] lifts, holds or supports trunk or limbs, but provides less than half the effort. 2-Substantial/Maximal Assistance-helper does MORE THAN HALF the effort. [place] lifts or holds trunk or limbs and provides more than half the effort. 3-Gaedsbqyr-oseykw does ALL the effort. Patient does none of the effort to complete the activity. Or, the assistance of 2 or more helpers is required for the patient to complete the activity. If activity was not attempted, code reason: 7-Patient Refused. 9-Not Applicable-not attempted and the patient did not perform the activity before the current illness, exacerbation or injury. 10-Not Attempted due to Environmental Limitations-(lack of equipment, weather restraints, etc.). 88-Not Attempted due to Medical Conditions or Safety Concerns. Other Treatment Pt completed 3lb arm exercises to increase BUE strength and to increase activity tolerance by completing elbow flexion/extension, shoulder flexion/abduction, punch outs and abducted arm circles 2x through completing 10 reps each. Pt shares no concerns when discharging to home about ADLs besides transferring to toilet with no grab bars. Pt also states that he wants to increase BUE strength and to increase overall endurance. Pt participates in card game while sitting to increase hand strength and dexterity by sorting the cards by the numbers. When asked to stand, pt declines stating that he is in too much pain due to his back. Pt supine in bed with call light in reach and all needs met. Education OT Patient Education: Purpose of tx/functional activities, Transfer techniques Teaching Recipient: Patient Teaching Methods: Discussion Response to Teaching: Verbalize Understanding OT Short Term Goals Short Term Goals Time Frame: Aug 09, 2021 Eatin Oral hygiene: 6 Toileting hygiene: 4 Shower/bathe self: 4 Upper body dressin Lower body dressin Putting on/taking off footwear: 5 OT Podiatrist Goals Podiatrist Goals Time Frame: Aug 14, 2021 Eating (QC): 6 Oral Hygiene (QC): 6 Toileting Hygiene (QC): 6 Shower/Bathe Self (QC): 6 Upper Body Dressing (QC): 6 Lower Body Dressing (QC): 6 On/Off Footwear (QC): 6 1=Demonstrate adherence to instructed precautions during ADL tasks. 2=Patient will verbalize/demonstrate understanding of assistive devices/modifications for ADL. 3=Patient will improve strength/tolerance for activity to enable patient to per form ADL's. OT Education/Plan Problem List/Assessment Assessment: Decreased Activ Tolerance, Decreased UE Strength, Impaired Coordination, Impaired Funct Balance, Impaired I ADL's, Impaired Self-Care Skills Discharge Recommendations Plan/Recommendations: Continue POC Treatment Plan/Plan of Care Patient would benefit from OT for education, treatment and training to promote independence in ADL's, mobility, safety and/or upper extremity function for ADL's. Plan of Care: ADL Retraining, Functional Mobility, Group Exercise/Act as Ind, Orthotic Fitting/Training, UE Funct Exercise/Act Treatment Duration: Aug 14, 2021 Frequency: At least 5 of 7 days/Wk (IRF) Estimated Hrs Per Day: 1.5 hours per day (60-90 min/day) Rehab Potential: Good Time/GCodes Start Time: 11:30 Stop Time: 12:00 Total Time Billed (hr/min): 30 Billed Treatment Time 1 visit- 1, EX (15min), FA (15min) Sejal Feliz Aug 04, 2021 11:58
[2021-08-04 20:00] VITALS: BP 159/81
[2021-08-05] MEDS: HYDROcodone/APAP 7.5 MG/325 MG (LORTAB, LORCET PLUS) TABLET PO PRN ×5 (02:52→21:00)
--- NOTE | 2021-08-05 06:16 | PM&R Progress Note ---
Subjective HPI/CC On Admission Date Seen by Provider: Aug 05, 2021 Time Seen by Provider: 12:30 Subjective/Events-last exam 08/05/2021: Patient having a better day No pain is reported No falls Eating and drinking well Blood sugars labile 08/04/2021: Labile blood sugars Hemoglobin A1c actually reasonable Patient is feeling nauseated and fatigued today but that has passed Pain is controlled Doing well 08/03/2021: Patient doing really well Blood sugars are very labile indicating poor control at home thus risk factor for amputations as he has had No pain is reported right now No falls Bowels are moving Tolerating therapy 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 Review of Systems General: Fatigue, Malaise Musculoskeletal: leg pain Objective Exam Vital Signs Vital Signs Date Time Temp Pulse Resp B/P (MAP) Pulse Ox O2 Delivery O2 Flow Rate FiO2 08/05/21 21:00 97 Room Air 08/05/21 20:00 36.3 87 18 108/72 (84) Capillary Refill : General Appearance: No Apparent Distress, WD/WN, Chronically ill, Obese HEENT: PERRL/EOMI, Normal ENT Inspection, Pharynx Normal Neck: Full Range of Motion, Normal Inspection, Non Tender, Supple, Carotid Bruit Respiratory: Chest Non Tender, Lungs Clear, Normal Breath Sounds, No Accessory Muscle Use, No Respiratory Distress Cardiovascular: Regular Rate, Rhythm, No Edema, No Gallop, No JVD, No Murmur, Normal Peripheral Pulses Gastrointestinal: Normal Bowel Sounds, No Organomegaly, No Pulsatile Mass, Non Tender, Soft Back: Normal Inspection, No CVA Tenderness, No Vertebral Tenderness Extremity: Normal Capillary Refill, Normal Inspection, Normal Range of Motion (Right BKA), Non Tender, No Calf Tenderness, No Pedal Edema Neurologic/Psychiatric: Alert, Oriented x3, No Motor/Sensory Deficits, Normal Mood/Affect, reception agent II-XII Norm as Tested, Abnormal Gait, Motor Weakness (Generalized) Skin: Normal Color, Warm/Dry Lymphatic: No Adenopathy Results/Procedures Lab Patient resulted labs reviewed. FIM Transfers Therapy Code Descriptions/Definitions Functional [place] Measure: 0=Not Assessed/NA 4=Minimal Assistance 1=Total Assistance 5=Supervision or Setup 2=Maximal Assistance 6=Modified [place] 3=Moderate Assistance 7=Complete IndependenceSCALE: Activities may be completed with or without assistive devices. 6-Ucwafqdvts-tupuypy completes the activity by him/herself with no assistance from a helper. 5-Set-up or Clean-up Assistance-helper sets up or cleans up; patient completes activity. [place] assists only prior to or following the activity. 4-Supervision or Touching Assistance-helper provides verbal cues and/or touchin g/steadying and/or contact guard assistance as patient completes activity. Assistance may be provided throughout the activity or intermittently. 3-Partial/Moderate Assistance-helper does LESS THAN HALF the effort. [place] lifts, holds or supports trunk or limbs, but provides less than half the effort. 2-Substantial/Maximal Assistance-helper does MORE THAN HALF the effort. [place] lifts or holds trunk or limbs and provides more than half the effort. 3-Fqhsxmypi-ouncvm does ALL the effort. Patient does none of the effort to complete the activity. Or, the assistance of 2 or more helpers is required for the patient to complete the activity. If activity was not attempted, code reason: 7-Patient Refused. 9-Not Applicable-not attempted and the patient did not perform the activity before the current illness, exacerbation or injury. 10-Not Attempted due to Environmental Limitations-(lack of equipment, weather restraints, etc.). 88-Not Attempted due to Medical Conditions or Safety Concerns. Roll Left to Right (QC): 6 Sit to Lying (QC): 6 Sit to Stand (QC): 6 Chair/Kvc-cn-Mndnl Xfer(QC): 6 Car Transfer (QC): 3 Gait Training Does the Patient Walk?: Yes Walk 10 feet (QC): 4 Walk 50 ft with 2 Turns(QC): 88 Walk 150 ft (QC): 88 Walking 10ft/uneven surface-QC: 4 Gait Persons Needed: 1 Gait Assistive Device: FWW Wheelchair Training Does the Pt Use a Wheelchair?: Yes Wheel 50 ft with 2 turns (QC): 6 Wheel 150 ft (QC): 6 Type of Wheelchair: Manual Stair Training 1 Step (curb) (QC): 88 4 Steps (QC): 88 12 Steps (QC): 88 Balance Picking up an Object (QC): 4 (using floor sweeper) ADL-Treatment Eating (QC): 6 (per clinical judgment) Oral Hygiene (QC): 5 (per clinical judgment) Shower/Bathe Self (QC): 7 Upper Body Dressing (QC): 5 (per clinical judgment) Lower Body Dressing (QC): 3 (per clinical judgment) On/Off Footwear (QC): 5 (Set up) Toileting Hygiene (QC): 3 (Rolando) Toilet Transfer (QC): 4 (Steady Assist) Assessment/Plan Assessment and Plan Assess & Plan/Chief Complaint Assessment: Status post right BKA Diabetes insulin-dependent Hypertension Hyperlipidemia Mood disorder Obesity Severe neuropathy Plan: Supportive care Aggressive rehab Pain control 08/03/2021: Monitor insulin and sugar Supportive care 08/04/2021: Continue aggressive therapy Insulin 08/05/2021: Insulin management Supportive care Pain control (1) Hx of right BKA (2) Diabetes mellitus, insulin dependent (IDDM), uncontrolled (3) Obesity (4) Hypertension (5) Hyperlipidemia (6) Neuropathy (7) Mood disorder SHLOMO PATEL DO Aug 05, 2021 06:16
[2021-08-05 07:32] VITALS: BP 155/87
[2021-08-05] MEDS: polyethylene glycoL POWDER 17 GM (MIRALAX) PACK PO SCH ×2 (08:07→21:12)
[2021-08-05] MEDS: SENNA W/DOCUSATE (SENOKOT S) TABLET PO SCH ×2 (08:07→21:12)
[2021-08-05] MEDS: DOCUSATE SODIUM 100 MG (COLACE) CAP PO SCH ×2 (08:07→21:11)
[2021-08-05] MEDS: ASPIRIN E.C. 81 MG (ECOTRIN) TAB PO SCH (08:11)
[2021-08-05] MEDS: SIMvastatin 10 MG (ZOCOR) TAB PO SCH (08:11)
[2021-08-05] MEDS: lisINopril 20 MG (PRINIVIL) TABLET PO SCH (08:12)
[2021-08-05] MEDS: PANTOPRAZOLE 20 MG TABLET (PROTONIX) PO SCH ×2 (08:12→21:00)
[2021-08-05] MEDS: DOXYCYCLINE 100 MG (VIBRAMYCIN) TABLET PO SCH ×2 (08:12→21:00)
[2021-08-05] MEDS: buPROPion SR 150 MG (WELLBUTRIN SR) TAB PO SCH (08:12)
[2021-08-05] MEDS: metFORMIN XR 500 MG (GLUCOPHAGE XR) TAB PO SCH (08:12)
[2021-08-05] MEDS: inSUlin ASPART (NovoLOG) 1 UNIT/0.01 ML (CHARGE PER UNIT) SC SCH ×3 (08:13→17:28)
--- NOTE | 2021-08-05 10:27 | Physical Therapy Daily Note ---
PT Daily Note-Current Subjective Pt in bed upon arrival and agrees to PT. Requests to perform exs in bed. Says his back in hurting today but does not rate. Mental Status Patient Orientation: Person, Place, Time, Situation Transfers SCALE: Activities may be completed with or without assistive devices. 0-Pmjzlcwgbv-gnppwlb completes the activity by him/herself with no assistance from a helper. 5-Set-up or Clean-up Assistance-helper sets up or cleans up; patient completes activity. [place] assists only prior to or following the activity. 4-Supervision or Touching Assistance-helper provides verbal cues and/or touching/steadying and/or contact guard assistance as patient completes activity. Assistance may be provided throughout the activity or intermittently. 3-Partial/Moderate Assistance-helper does LESS THAN HALF the effort. [place] lifts, holds or supports trunk or limbs, but provides less than half the effort. 2-Substantial/Maximal Assistance-helper does MORE THAN HALF the effort. [place] lifts or holds trunk or limbs and provides more than half the effort. 1-Yqoyqagmh-tvedoi does ALL the effort. Patient does none of the effort to complete the activity. Or, the assistance of 2 or more helpers is required for the patient to complete the activity. If activity was not attempted, code reason: 7-Patient Refused. 9-Not Applicable-not attempted and the patient did not perform the activity before the current illness, exacerbation or injury. 10-Not Attempted due to Environmental Limitations-(lack of equipment, weather restraints, etc.). 88-Not Attempted due to Medical Conditions or Safety Concerns. Weight Bearing Right Lower Extremity: Right Non Weight Bearing Left Lower Extremity: Left Full Weight Bearing Exercises Supine Ex: Straight leg raise, Hip abd/add prone hip ext, S/L hip abd and extension. All exs performed 2x10 Treatments All needs met upon PT departure w/ call light nearby. Assessment Current Status: Good Progress Pt requires skilled verbal cues for proper execution of supine exs. PT Short Term Goals Short Term Goals Time Frame: Aug 09, 2021 Roll Left & Right: 6 Sit to lyin Lying to sitting on side of be: 6 Sit to stand: 4 (CGA) Chair/btk-rx-jtlcc transfer: 4 (SBA) Walk 10 feet: 4 (SBA) Walk 50 feet with two turns: 4 (SBA) PT Welding Lead Burner Goals Care Home Goals PT Care Home Goals Time Frame: August 23, 2021 Roll Left & Right (QC): 6 Sit to Lying (QC): 6 Lying-Sitting on Side/Bed(QC): 6 Sit to Stand (QC): 6 Chair/Oyq-jb-Fhexn Xfer(QC): 6 Toilet Transfer (QC): 6 Car Transfer (QC): 4 Does the Patient Walk: Yes Walk 10 feet (QC): 4 Walk 50ft with 2 Turns (QC): 4 Walk 150 ft (QC): 4 Walking 10ft on Uneven Surface: 4 1 Step (curb) (QC): 4 4 Steps (QC): 4 12 Steps (QC): 88 Picking up an Object (QC): 6 Wheel 50 feet with 2 turns (QC: 9 Wheel 150 feet: 9 PT Plan Problem List Problem List: Activity Tolerance, Functional Strength Treatment/Plan Treatment Plan: Continue Plan of Care Treatment Plan: Bed Mobility, Education, Functional Activity Teodoro, Functional Strength, Group Therapy, Gait, Safety, Therapeutic Exercise, Transfers Treatment Duration: August 23, 2021 Frequency: At least 5 of 7 days/Wk (IRF) Estimated Hrs Per Day: 1.5 hours per day Patient and/or Family Agrees t: Yes Safety Risks/Education Patient Education: Correct Positioning Teaching Recipient: Patient Teaching Methods: Discussion Response to Teaching: Return Demonstration Time/GCodes Time In: 900 Time Out: 920 Total Billed Treatment Time: 20 Total Billed Treatment 1, EX SYDLYNDSEY INFERTILITY NURSE Aug 05, 2021 10:27
[2021-08-05 20:00] VITALS: BP 108/72
[2021-08-06] MEDS: ONDANSETRON 4 MG (ZOFRAN) ORAL DISSOLVE TAB PO PRN (00:33)
[2021-08-06] MEDS: HYDROcodone/APAP 7.5 MG/325 MG (LORTAB, LORCET PLUS) TABLET PO PRN ×6 (01:29→23:49)
--- NOTE | 2021-08-06 05:45 | PM&R Progress Note ---
Subjective HPI/CC On Admission Date Seen by Provider: Aug 06, 2021 Time Seen by Provider: 08:00 Subjective/Events-last exam 08/06/21: Patient having more N/V Gastroparesis is assumed Reglan will be initiated Checked meds and labs 08/05/2021: Patient having a better day No pain is reported No falls Eating and drinking well Blood sugars labile 08/04/2021: Labile blood sugars Hemoglobin A1c actually reasonable Patient is feeling nauseated and fatigued today but that has passed Pain is controlled Doing well 08/03/2021: Patient doing really well Blood sugars are very labile indicating poor control at home thus risk factor for amputations as he has had No pain is reported right now No falls Bowels are moving Tolerating therapy 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 Review of Systems General: Fatigue, Malaise Gastrointestinal: Nausea, Vomiting, Abdominal Pain Objective Exam Vital Signs Vital Signs Date Time Temp Pulse Resp B/P (MAP) Pulse Ox O2 Delivery O2 Flow Rate FiO2 08/06/21 10:01 Room Air 08/06/21 07:56 36.6 85 16 152/64 (93) 94 Capillary Refill : General Appearance: No Apparent Distress, WD/WN, Chronically ill, Obese HEENT: PERRL/EOMI, Normal ENT Inspection, Pharynx Normal Neck: Full Range of Motion, Normal Inspection, Non Tender, Supple, Carotid Bruit Respiratory: Chest Non Tender, Lungs Clear, Normal Breath Sounds, No Accessory Muscle Use, No Respiratory Distress Cardiovascular: Regular Rate, Rhythm, No Edema, No Gallop, No JVD, No Murmur, Normal Peripheral Pulses Gastrointestinal: Normal Bowel Sounds, No Organomegaly, No Pulsatile Mass, Non Tender, Soft Back: Normal Inspection, No CVA Tenderness, No Vertebral Tenderness Extremity: Normal Capillary Refill, Normal Inspection, Normal Range of Motion (Right BKA), Non Tender, No Calf Tenderness, No Pedal Edema Neurologic/Psychiatric: Alert, Oriented x3, No Motor/Sensory Deficits, Normal Mood/Affect, 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 FIM Transfers Therapy Code Descriptions/Definitions Functional [place] Measure: 0=Not Assessed/NA 4=Minimal Assistance 1=Total Assistance 5=Supervision or Setup 2=Maximal Assistance 6=Modified [place] 3=Moderate Assistance 7=Complete IndependenceSCALE: Activities may be completed with or without assistive devices. 5-Mfunosijkj-gtbdtwc completes the activity by him/herself with no assistance from a helper. 5-Set-up or Clean-up Assistance-helper sets up or cleans up; patient completes activity. [place] assists only prior to or following the activity. 4-Supervision or Touching Assistance-helper provides verbal cues and/or dexter kate/steadying and/or contact guard assistance as patient completes activity. Assistance may be provided throughout the activity or intermittently. 3-Partial/Moderate Assistance-helper does LESS THAN HALF the effort. [place] lifts, holds or supports trunk or limbs, but provides less than half the effort. 2-Substantial/Maximal Assistance-helper does MORE THAN HALF the effort. [place] lifts or holds trunk or limbs and provides more than half the effort. 3-Sytpbbptt-fknafg does ALL the effort. Patient does none of the effort to complete the activity. Or, the assistance of 2 or more helpers is required for the patient to complete the activity. If activity was not attempted, code reason: 7-Patient Refused. 9-Not Applicable-not attempted and the patient did not perform the activity before the current illness, exacerbation or injury. 10-Not Attempted due to Environmental Limitations-(lack of equipment, weather restraints, etc.). 88-Not Attempted due to Medical Conditions or Safety Concerns. Roll Left to Right (QC): 6 Sit to Lying (QC): 6 Sit to Stand (QC): 6 Chair/Iwp-zu-Jcxro Xfer(QC): 6 Car Transfer (QC): 3 Gait Training Does the Patient Walk?: Yes Walk 10 feet (QC): 4 Walk 50 ft with 2 Turns(QC): 88 Walk 150 ft (QC): 88 Walking 10ft/uneven surface-QC: 4 Gait Persons Needed: 1 Gait Assistive Device: FWW Wheelchair Training Does the Pt Use a Wheelchair?: Yes Wheel 50 ft with 2 turns (QC): 6 Wheel 150 ft (QC): 6 Type of Wheelchair: Manual Stair Training 1 Step (curb) (QC): 88 4 Steps (QC): 88 12 Steps (QC): 88 Balance Picking up an Object (QC): 4 (using satellite installation technician) ADL-Treatment Eating (QC): 6 (per clinical judgment) Oral Hygiene (QC): 5 (per clinical judgment) Shower/Bathe Self (QC): 7 Upper Body Dressing (QC): 5 (per clinical judgment) Lower Body Dressing (QC): 3 (per clinical judgment) On/Off Footwear (QC): 5 (Set up) Toileting Hygiene (QC): 3 (Rolando) Toilet Transfer (QC): 4 (Steady Assist) Assessment/Plan Assessment and Plan Assess & Plan/Chief Complaint Assessment: Status post right BKA Diabetes insulin-dependent Hypertension Hyperlipidemia Mood disorder Obesity Severe neuropathy N/V recurrent presumed Gastroparesis Plan: Supportive care Aggressive rehab Pain control 08/03/2021: Monitor insulin and sugar Supportive care 08/04/2021: Continue aggressive therapy Insulin 08/05/2021: Insulin management Supportive care Pain control 08/06/21: Reglan initiated Monitor closely (1) Hx of right BKA (2) Diabetes mellitus, insulin dependent (IDDM), uncontrolled (3) Obesity (4) Hypertension (5) Hyperlipidemia (6) Neuropathy (7) Mood disorder SHLOMO PATEL DO Aug 06, 2021 05:45
[2021-08-06 07:56] VITALS: BP 152/64
[2021-08-06] MEDS: buPROPion SR 150 MG (WELLBUTRIN SR) TAB PO SCH (08:12)
[2021-08-06] MEDS: SIMvastatin 10 MG (ZOCOR) TAB PO SCH (08:12)
[2021-08-06] MEDS: metFORMIN XR 500 MG (GLUCOPHAGE XR) TAB PO SCH (08:12)
[2021-08-06] MEDS: ASPIRIN E.C. 81 MG (ECOTRIN) TAB PO SCH (08:12)
[2021-08-06] MEDS: DOXYCYCLINE 100 MG (VIBRAMYCIN) TABLET PO SCH ×2 (08:12→19:45)
[2021-08-06] MEDS: PANTOPRAZOLE 20 MG TABLET (PROTONIX) PO SCH ×2 (08:13→19:45)
[2021-08-06] MEDS: lisINopril 20 MG (PRINIVIL) TABLET PO SCH (08:13)
[2021-08-06] MEDS: inSUlin ASPART (NovoLOG) 1 UNIT/0.01 ML (CHARGE PER UNIT) SC SCH ×3 (08:17→17:41)
[2021-08-06] MEDS: polyethylene glycoL POWDER 17 GM (MIRALAX) PACK PO SCH ×2 (10:00→19:52)
[2021-08-06] MEDS: SENNA W/DOCUSATE (SENOKOT S) TABLET PO SCH ×2 (10:00→19:52)
[2021-08-06] MEDS: DOCUSATE SODIUM 100 MG (COLACE) CAP PO SCH ×2 (10:00→19:52)
[2021-08-06] MEDS: METOCLOPRAMIDE 10 MG (REGLAN) TAB PO SCH ×3 (11:08→19:45)
[2021-08-06 19:26] VITALS: BP 139/70
[2021-08-07] MEDS: METOCLOPRAMIDE 10 MG (REGLAN) TAB PO SCH ×4 (05:20→20:28)
[2021-08-07] MEDS: HYDROcodone/APAP 7.5 MG/325 MG (LORTAB, LORCET PLUS) TABLET PO PRN ×5 (05:21→23:02)
--- NOTE | 2021-08-07 05:44 | PM&R Progress Note ---
Subjective HPI/CC On Admission Date Seen by Provider: Aug 07, 2021 Time Seen by Provider: 09:30 Subjective/Events-last exam 08/07/2021: Pt is doing pretty well, sleeping soundly right now Appears to have some sleep apnea Bowels moved today Holding insulin due to blood sugar less than 130 08/06/21: Patient having more N/V Gastroparesis is assumed Reglan will be initiated Checked meds and labs 08/05/2021: Patient having a better day No pain is reported No falls Eating and drinking well Blood sugars labile 08/04/2021: Labile blood sugars Hemoglobin A1c actually reasonable Patient is feeling nauseated and fatigued today but that has passed Pain is controlled Doing well 08/03/2021: Patient doing really well Blood sugars are very labile indicating poor control at home thus risk factor for amputations as he has had No pain is reported right now No falls Bowels are moving Tolerating therapy 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 Review of Systems General: Fatigue, Malaise Objective Exam Vital Signs Vital Signs Date Time Temp Pulse Resp B/P (MAP) Pulse Ox O2 Delivery O2 Flow Rate FiO2 08/07/21 20:10 Room Air 08/07/21 19:36 36.8 90 16 136/74 (94) 97 Capillary Refill : General Appearance: No Apparent Distress, WD/WN, Chronically ill, Obese HEENT: PERRL/EOMI, Normal ENT Inspection, Pharynx Normal Neck: Full Range of Motion, Normal Inspection, Non Tender, Supple, Carotid Bruit Respiratory: Chest Non Tender, Lungs Clear, Normal Breath Sounds, No Accessory Muscle Use, No Respiratory Distress Cardiovascular: Regular Rate, Rhythm, No Edema, No Gallop, No JVD, No Murmur, Normal Peripheral Pulses Gastrointestinal: Normal Bowel Sounds, No Organomegaly, No Pulsatile Mass, Non Tender, Soft Back: Normal Inspection, No CVA Tenderness, No Vertebral Tenderness Extremity: Normal Capillary Refill, Normal Inspection, Normal Range of Motion (Right BKA), Non Tender, No Calf Tenderness, No Pedal Edema Neurologic/Psychiatric: Alert, Oriented x3, No Motor/Sensory Deficits, Normal Mood/Affect, filter assembler II-XII Norm as Tested, Abnormal Gait, Motor Weakness (Generalized) Skin: Normal Color, Warm/Dry Lymphatic: No Adenopathy Results/Procedures Lab Laboratory Tests 08/07/21 05:35 Patient resulted labs reviewed. FIM Transfers Therapy Code Descriptions/Definitions Functional [place] Measure: 0=Not Assessed/NA 4=Minimal Assistance 1=Total Assistance 5=Supervision or Setup 2=Maximal Assistance 6=Modified [place] 3=Moderate Assistance 7=Complete IndependenceSCALE: Activities may be completed with or without assistive devices. 9-Newzrokelg-sfzpscm completes the activity by him/herself with no assistance from a helper. 5-Set-up or Clean-up Assistance-helper sets up or cleans up; patient completes activity. [place] assists only prior to or following the activity. 4-Supervision or Touching Assistance-helper provides verbal cues and/or touching/steadying and/or contact guard assistance as patient completes activity. Assistance may be provided throughout the activity or intermittently. 3-Partial/Moderate Assistance-helper does LESS THAN HALF the effort. [place] lifts, holds or supports trunk or limbs, but provides less than half the effort. 2-Substantial/Maximal Assistance-helper does MORE THAN HALF the effort. [place] lifts or holds trunk or limbs and provides more than half the effort. 6-Erruufyxj-dbbqgc does ALL the effort. Patient does none of the effort to complete the activity. Or, the assistance of 2 or more helpers is required for the patient to complete the activity. If activity was not attempted, code reason: 7-Patient Refused. 9-Not Applicable-not attempted and the patient did not perform the activity before the current illness, exacerbation or injury. 10-Not Attempted due to Environmental Limitations-(lack of equipment, weather restraints, etc.). 88-Not Attempted due to Medical Conditions or Safety Concerns. Roll Left to Right (QC): 6 Sit to Lying (QC): 6 Sit to Stand (QC): 6 Chair/Twk-er-Pcids Xfer(QC): 6 Car Transfer (QC): 3 Gait Training Does the Patient Walk?: Yes Walk 10 feet (QC): 4 Walk 50 ft with 2 Turns(QC): 88 Walk 150 ft (QC): 88 Walking 10ft/uneven surface-QC: 4 Gait Persons Needed: 1 Gait Assistive Device: FWW Wheelchair Training Does the Pt Use a Wheelchair?: Yes Wheel 50 ft with 2 turns (QC): 6 Wheel 150 ft (QC): 6 Type of Wheelchair: Manual Stair Training 1 Step (curb) (QC): 88 4 Steps (QC): 88 12 Steps (QC): 88 Balance Picking up an Object (QC): 4 (using shoe stainer) ADL-Treatment Eating (QC): 6 (per clinical judgment) Oral Hygiene (QC): 5 (per clinical judgment) Shower/Bathe Self (QC): 7 Upper Body Dressing (QC): 5 (per clinical judgment) Lower Body Dressing (QC): 3 (per clinical judgment) On/Off Footwear (QC): 5 (Set up) Toileting Hygiene (QC): 3 (Rolando) Toilet Transfer (QC): 4 (Steady Assist) Assessment/Plan Assessment and Plan Assess & Plan/Chief Complaint Assessment: Status post right BKA Diabetes insulin-dependent Hypertension Hyperlipidemia Mood disorder Obesity Severe neuropathy N/V recurrent presumed Gastroparesis Plan: Supportive care Aggressive rehab Pain control 08/03/2021: Monitor insulin and sugar Supportive care 08/04/2021: Continue aggressive therapy Insulin 08/05/2021: Insulin management Supportive care Pain control 08/06/21: Reglan initiated Monitor closely 08/07/2021: Supportive care Monitor blood sugar (1) Hx of right BKA (2) Diabetes mellitus, insulin dependent (IDDM), uncontrolled (3) Obesity (4) Hypertension (5) Hyperlipidemia (6) Neuropathy (7) Mood disorder SHLOMO PATEL DO Aug 07, 2021 05:44
[2021-08-07 05:56] LABS: BASOPHILS # (AUTO) 0.1 10^3/uL (0.0-0.1); BASOPHILS % (AUTO) 1 % (0-10); EOSINOPHILS # (AUTO) 0.7 10^3/uL (0.0-0.3); EOSINOPHILS % (AUTO) 10 % (0-10); HEMATOCRIT 34 % (40-54); HEMOGLOBIN 11.1 g/dL (13.3-17.7); LYMPHOCYTES # (AUTO) 1.8 10^3/uL (1.0-4.0); LYMPHOCYTES % (AUTO) 27 % (12-44); MEAN CORPUSCULAR HEMOGLOBIN 28 pg (25-34); MEAN CORPUSCULAR HGB CONC 32 g/dL (32-36); MEAN CORPUSCULAR VOLUME 87 fL (80-99); MEAN PLATELET VOLUME 10.9 fL (9.0-12.2); MONOCYTES # (AUTO) 0.3 10^3/uL (0.0-1.0); MONOCYTES % (AUTO) 5 % (0-12); NEUTROPHILS # (AUTO) 3.8 10^3/uL (1.8-7.8); NEUTROPHILS % (AUTO) 57 % (42-75); PLATELET COUNT 234 10^3/uL (130-400); WHITE BLOOD COUNT 6.7 10^3/uL (4.3-11.0)
[2021-08-07 06:07] LABS: ALBUMIN 3.6 GM/DL (3.2-4.5)
[2021-08-07 06:08] LABS: CALCIUM 9.3 MG/DL (8.5-10.1)
[2021-08-07 06:09] LABS: TOTAL PROTEIN 6.5 GM/DL (6.4-8.2)
[2021-08-07 06:11] LABS: BILIRUBIN,TOTAL 0.3 MG/DL (0.1-1.0)
[2021-08-07 06:13] LABS: CREATININE SERUM 2.14 MG/DL (0.60-1.30)
[2021-08-07] MEDS: DOXYCYCLINE 100 MG (VIBRAMYCIN) TABLET PO SCH (07:22)
[2021-08-07] MEDS: ASPIRIN E.C. 81 MG (ECOTRIN) TAB PO SCH (07:22)
[2021-08-07] MEDS: buPROPion SR 150 MG (WELLBUTRIN SR) TAB PO SCH (07:22)
[2021-08-07] MEDS: SIMvastatin 10 MG (ZOCOR) TAB PO SCH (07:22)
[2021-08-07] MEDS: PANTOPRAZOLE 20 MG TABLET (PROTONIX) PO SCH ×2 (07:23→20:27)
[2021-08-07] MEDS: amLODIPine 5 MG (NORVASC) TAB PO SCH (07:23)
[2021-08-07 07:35] VITALS: BP 139/67
[2021-08-07] MEDS: inSUlin ASPART (NovoLOG) 1 UNIT/0.01 ML (CHARGE PER UNIT) SC SCH ×3 (08:45→18:04)
[2021-08-07] MEDS: polyethylene glycoL POWDER 17 GM (MIRALAX) PACK PO SCH ×2 (08:47→19:35)
[2021-08-07] MEDS: DOCUSATE SODIUM 100 MG (COLACE) CAP PO SCH ×2 (08:47→19:35)
[2021-08-07] MEDS: SENNA W/DOCUSATE (SENOKOT S) TABLET PO SCH ×2 (08:48→19:35)
--- NOTE | 2021-08-07 08:54 | Physical Therapy Daily Note ---
PT Daily Note-Current Subjective Patient stated he was feeling much better having rested on the weekend. Patient consented to treatment. Pain Location: No Pain Reported Mental Status Patient Orientation: Person, Place, Time, Situation Transfers SCALE: Activities may be completed with or without assistive devices. 5-Tuatbvvnsa-xtkayga completes the activity by him/herself with no assistance from a helper. 5-Set-up or Clean-up Assistance-helper sets up or cleans up; patient completes activity. [place] assists only prior to or following the activity. 4-Supervision or Touching Assistance-helper provides verbal cues and/or touching/steadying and/or contact guard assistance as patient completes activity. Assistance may be provided throughout the activity or intermittently. 3-Partial/Moderate Assistance-helper does LESS THAN HALF the effort. [place] lifts, holds or supports trunk or limbs, but provides less than half the effort. 2-Substantial/Maximal Assistance-helper does MORE THAN HALF the effort. [place] lifts or holds trunk or limbs and provides more than half the effort. 7-Eslgijrok-ybydmh does ALL the effort. Patient does none of the effort to complete the activity. Or, the assistance of 2 or more helpers is required for the patient to complete the activity. If activity was not attempted, code reason: 7-Patient Refused. 9-Not Applicable-not attempted and the patient did not perform the activity before the current illness, exacerbation or injury. 10-Not Attempted due to Environmental Limitations-(lack of equipment, weather restraints, etc.). 88-Not Attempted due to Medical Conditions or Safety Concerns. Roll Left & Right (QC): 6 Sit to Lying (QC): 6 Lying to Sitting/Side of Bed(Q: 6 Sit to Stand (QC): 4 Chair/Hro-yp-Fkeof Xfer(QC): 6 Weight Bearing Right Lower Extremity: Right Non Weight Bearing Left Lower Extremity: Left Full Weight Bearing Gait Training Does the Patient Walk?: Yes Distance: 25', 15', 10', 10' Walk 10 feet (QC): 4 Gait Assistive Device: FWW Wheelchair Training Does the Pt Use a Wheelchair?: Yes Wheel 50 ft with 2 turns (QC): 6 Wheel 150 ft (QC): 6 300' total distance Exercises Supine Ex: Quad Set (with 6lb wt on top of knee), Straight leg raise, Hip abd/add (sidelying) Supine Reps: 20 Seated Therapy Exercises: Hip flexion Seated Reps: 20 Standing: Heel/toe raises, Mini squats Standing Reps: 20 Prone hip extension 20reps, R knee stance on stool with L leg marching 30reps. NuStep Minutes: 7 NuStep Workload: 7 Treatments LE strengthening, mobility, ambulation. Assessment Current Status: Fair Progress Patient was only able to walk a short distance before needing a seated rest break. Patient demonstrated good strength with LE exercises in supine and standing, and was able to bear weight through R hip adequately. Patient stated that his back hurt performing the NuStep and so we terminated the activity. Patient also stated that his back hurt too much while walking from putting weight through arms, so we deferred walking for the rest of treatment. Patient was left in bed with call light, tray, and all needs met. PT Short Term Goals Short Term Goals Time Frame: Aug 09, 2021 Roll Left & Right: 6 Sit to lyin Lying to sitting on side of be: 6 Sit to stand: 4 (CGA) Chair/vhx-nu-zxjec transfer: 4 (SBA) Walk 10 feet: 4 (SBA) Walk 50 feet with two turns: 4 (SBA) PT Helium Arc Welder Goals Detention Goals PT Detention Goals Time Frame: August 23, 2021 Roll Left & Right (QC): 6 Sit to Lying (QC): 6 Lying-Sitting on Side/Bed(QC): 6 Sit to Stand (QC): 6 Chair/Wlb-xq-Qamqd Xfer(QC): 6 Toilet Transfer (QC): 6 Car Transfer (QC): 4 Does the Patient Walk: Yes Walk 10 feet (QC): 4 Walk 50ft with 2 Turns (QC): 4 Walk 150 ft (QC): 4 Walking 10ft on Uneven Surface: 4 1 Step (curb) (QC): 4 4 Steps (QC): 4 12 Steps (QC): 88 Picking up an Object (QC): 6 Wheel 50 feet with 2 turns (QC: 9 Wheel 150 feet: 9 PT Plan Problem List Problem List: Activity Tolerance, Functional Strength, Safety, Balance, Gait, Transfer, Bed Mobility, ROM Treatment/Plan Treatment Plan: Continue Plan of Care Treatment Plan: Bed Mobility, Education, Functional Activity Teodoro, Functional Strength, Group Therapy, Gait, Safety, Therapeutic Exercise, Transfers Treatment Duration: August 23, 2021 Frequency: At least 5 of 7 days/Wk (IRF) Estimated Hrs Per Day: 1.5 hours per day Patient and/or Family Agrees t: Yes Safety Risks/Education Patient Education: Gait Training, Transfer Techniques, Correct Positioning, W/C Management, Safety Issues Teaching Recipient: Patient Teaching Methods: Discussion Response to Teaching: Verbalize Understanding Time/GCodes Time In: 0800 Time Out: 0900 Total Billed Treatment Time: 60 Total Billed Treatment 1 visit EX 45min FA 15min MATTHEW MAURICIO PT Aug 07, 2021 08:54
--- NOTE | 2021-08-07 10:21 | Wound Care Assessment ---
Wound Care Assessment Date Seen by Provider: Aug 07, 2021 Time Seen by Provider: 10:13 Chief Complaint R dorsal 4th digit wound R. 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 Has some numbness and weakness to hands bilaterally. Reports that wound has been getting smaller and very minimal tenderness upon palpation. Little risk/concern for osteomyelitis of R 4th digit due to no exposed bone/tissue, no surrounding erythema, and improvement in wound size. Denies any fever, chills, nausea, vomiting, or diarrhea. He is planning to d/c home later this week. His stump site appears healthy without signs of abscess or infection. There is a small opening immediately superior to incision with serous drainage and no tunneling or associated abscess appreciated. He is uncertain as to when sutures are due for removal. According to surgical note, he should follow up in 10-14 days from discharge from BKA procedure (late this week, early next). We will plan to call and clarify when sutures to be removed (they do not look ready to come out just yet). Past Medical History: Admits Diabetes Type II Smoking Status: Former Smoker Alcohol Use: Denies Use Review of Systems General: No Chills, No Night Sweats, No Fatigue HEENT: No Head Aches, No Visual Changes, No Ear Pain Pulmonary: No Dyspnea, No Cough, No Pleuritic Chest Pain Cardiovascular: No: Chest Pain, Palpitations, Paroxysmal Noc. Dyspnea Gastrointestinal: No: Nausea, Vomiting, Diarrhea Genitourinary: No Dysuria, No Frequency, No Incontinence Musculoskeletal: hand pain Neurological: Weakness, Numbness; No: Change in speech Exam Vital Signs Date Time Temp Pulse Resp B/P (MAP) Pulse Ox O2 Delivery O2 Flow Rate FiO2 08/07/21 09:00 Room Air 08/07/21 07:35 35.7 77 16 139/67 (91) 97 Capillary Refill : General Appearance: WD/WN, no apparent distress, obese HEENT: PERRL/EOMI Neck: full range of motion, supple Cardiovascular: no edema Gastrointestinal: non tender, soft Extremities: other (R BKA) Neurologic/Psychiatric: alert, normal mood/affect, oriented x 3 Skin: normal color, warm/dry Skin Problem Location: upper extremities Skin Character: lesion Wound Measurement: 0.8cm x 1.1cm x 0.3cm No tunneling or undermining, No exudate, Margins show epibole, Nonerythematous with no exposed structures.No granulation and large eschar R. BKA incision is clean, dry and intact without associated erythema or drainage. Pinpoint opening immediately superior to incision with serous drainage. No tunneling or purulence. Results Laboratory Tests 08/06/21 11:00: Glucometer 194H 08/06/21 15:44: Glucometer 183H 08/07/21 05:15: Glucometer 133H 08/07/21 05:35: White Blood Count 6.7, Red Blood Count 3.94L, Hemoglobin 11.1L, Hematocrit 34L, Mean Corpuscular Volume 87, Mean Corpuscular Hemoglobin 28, Mean Corpuscular Hemoglobin Concent 32, Red Cell Distribution Width 13.8, Platelet Count 234, Mean Platelet Volume 10.9, Immature Granulocyte % (Auto) 0, Neutrophils (%) (Auto) 57, Lymphocytes (%) (Auto) 27, Monocytes (%) (Auto) 5, Eosinophils (%) (Auto) 10, Basophils (%) (Auto) 1, Neutrophils # (Auto) 3.8, Lymphocytes # (Auto) 1.8, Monocytes # (Auto) 0.3, Eosinophils # (Auto) 0.7H, Basophils # (Auto) 0.1, Immature Granulocyte # (Auto) 0.0, Sodium Level 140, Potassium Level 4.0, Chloride Level 105, Carbon Dioxide Level 21, Anion Gap 14, Blood Urea Nitrogen 28H, Creatinine 2.14H, Estimat Glomerular Filtration Rate 37, BUN/Creatinine Ratio 13, Glucose Level 136H, Calcium Level 9.3, Corrected Calcium 9.6, Total Bilirubin 0.3, Aspartate Amino Transf (AST/SGOT) 13, Alanine Aminotransferase (ALT/SGPT) 9, Alkaline Phosphatase 113, Total Protein 6.5, Albumin 3.6 Assessment/Plan/Dx Assessment: R dorsal 4th digit wound due to trauma R BKA Diabetes Neuropathy Obesity Weakness to hands bilaterally Plan: 1. [place] liberally with betadyne twice daily, air dry and leave open to air 2. Cleanse BKA incision daily with vashe or wound cleanser. Apply silver alginate HF to open area and cover entire incision with non-adherent dressing and change daily and prn if soaked. Supervisory-Addendum Brief Verification & Attestation Participated in pt care: history, MDM, physical Personally performed: exam, history, MDM, supervision of care Care discussed with: Medical Student Procedures: n/a Results interpretation: Verified all documentation MD FOUZIA Suarez STEVEN Aug 07, 2021 10:21 JESSICA MARTINEZ MD Aug 07, 2021 16:58
--- NOTE | 2021-08-07 10:25 | Occupational Ther Daily Note ---
OT Current Status-Daily Note Subjective Pt in bed, agreeable to OT Tx. Pt rates 5/10 pain in RLE, nurse provided pain medication. Mental Status/Objective Patient Orientation: Person, Place, Time, Situation ADL-Treatment Therapy Code Descriptions/Definitions Functional [place] Measure: 0=Not Assessed/NA 4=Minimal Assistance 1=Total Assistance 5=Supervision or Setup 2=Maximal Assistance 6=Modified [place] 3=Moderate Assistance 7=Complete IndependenceSCALE: Activities may be completed with or without assistive devices. 1-Xhfzdbhrgd-zmnjcci completes the activity by him/herself with no assistance from a helper. 5-Set-up or Clean-up Assistance-helper sets up or cleans up; patient completes activity. [place] assists only prior to or following the activity. 4-Supervision or Touching Assistance-helper provides verbal cues and/or touching/steadying and/or contact guard assistance as patient completes activity. Assistance may be provided throughout the activity or intermittently. 3-Partial/Moderate Assistance-helper does LESS THAN HALF the effort. [place] lifts, holds or supports trunk or limbs, but provides less than half the effort. 2-Substantial/Maximal Assistance-helper does MORE THAN HALF the effort. [place] lifts or holds trunk or limbs and provides more than half the effort. 0-Xzszdpsza-iaflun does ALL the effort. Patient does none of the effort to complete the activity. Or, the assistance of 2 or more helpers is required for the patient to complete the activity. If activity was not attempted, code reason: 7-Patient Refused. 9-Not Applicable-not attempted and the patient did not perform the activity before the current illness, exacerbation or injury. 10-Not Attempted due to Environmental Limitations-(lack of equipment, weather restraints, etc.). 88-Not Attempted due to Medical Conditions or Safety Concerns. Eating (QC): 6 (IND per pt report.) Oral Hygiene (QC): 6 (seated at sink.) Upper Body Dressing (QC): 6 (IND with farmworker pullet farm shirt.) Lower Body Dressing (QC): 6 (IND at bed level.) Other Treatment Pt in bed, agreeable to OT Tx. Pt changed clothes at bed level, then SPT to w/c, independently. Pt sat at sink to complete grooming tasks independently. Pt taken to large shower area, educated on tub transfer bench. Pt demonstrated independence with transfer between bench and w/c. Pt propelled w/c to therapy gym. OT tx with focus on UE strength and activity tolerance. Pt completed arm bike, x25 watt resistance, x12:30 mins, 3 rest breaks. Pt removed beads from heavy resistance theraputty, able to locate all beads without cues. Pt completed pipe tree task, 2lb wrist weights BUEs during task. Pt able to complete x6 configurations, following printed pattern. Pt c/o "shakiness", blood sugar checked and nurse provided pt with insulin. Pt propelled w/c around [facility] common area/2nd floor, forward/backwards depending on pt's comfort and reported slight back pain, then pt propelled w/c back to room. Pt completed SPT from w/c to bed independently. Post tx, pt in bed, call light in reach and all needs met. Education OT Patient Education: Correct positioning, Energy conservation, Modified ADL techniques, Progress toward Goal/Update tx plan, Purpose of tx/functional activities, Rehab process Teaching Recipient: Patient Teaching Methods: Discussion Response to Teaching: Verbalize Understanding OT Short Term Goals Short Term Goals Time Frame: Aug 09, 2021 Eatin Oral hygiene: 6 Toileting hygiene: 4 Shower/bathe self: 4 Upper body dressin Lower body dressin Putting on/taking off footwear: 5 OT Fdc Goals Fdc Goals Time Frame: Aug 14, 2021 Eating (QC): 6 Oral Hygiene (QC): 6 Toileting Hygiene (QC): 6 Shower/Bathe Self (QC): 6 Upper Body Dressing (QC): 6 Lower Body Dressing (QC): 6 On/Off Footwear (QC): 6 1=Demonstrate adherence to instructed precautions during ADL tasks. 2=Patient will verbalize/demonstrate understanding of assistive devices/modifications for ADL. 3=Patient will improve strength/tolerance for activity to enable patient to perform ADL's. OT Education/Plan Problem List/Assessment Assessment: Decreased Activ Tolerance, Decreased UE Strength, Impaired Funct Balance, Impaired I ADL's Discharge Recommendations Plan/Recommendations: Continue POC Treatment Plan/Plan of Care Patient would benefit from OT for education, treatment and training to promote independence in ADL's, mobility, safety and/or upper extremity function for ADL's. Plan of Care: ADL Retraining, Functional Mobility, Group Exercise/Act as Ind, Orthotic Fitting/Training, UE Funct Exercise/Act Treatment Duration: Aug 14, 2021 Frequency: At least 5 of 7 days/Wk (IRF) Estimated Hrs Per Day: 1.5 hours per day (60-90 min/day) Rehab Potential: Good Time/GCodes Start Time: 10:00 Stop Time: 11:30 Total Time Billed (hr/min): 90 Billed Treatment Time 1, ADL (15'), EX (15'), FA 4 (60') EROS ANDRADE OT Aug 07, 2021 10:25
--- NOTE | 2021-08-07 13:33 | Physical Therapy Daily Note ---
PT Daily Note-Current Subjective Pt. agrees to Rx. States he feels he is making progress. Pain Location: No Pain Reported Mental Status Patient Orientation: Normal For Age Transfers SCALE: Activities may be completed with or without assistive devices. 6-Ulfxdbgbab-hgwqykg completes the activity by him/herself with no assistance from a helper. 5-Set-up or Clean-up Assistance-helper sets up or cleans up; patient completes activity. [place] assists only prior to or following the activity. 4-Supervision or Touching Assistance-helper provides verbal cues and/or touching/steadying and/or contact guard assistance as patient completes activity. Assistance may be provided throughout the activity or intermittently. 3-Partial/Moderate Assistance-helper does LESS THAN HALF the effort. [place] lifts, holds or supports trunk or limbs, but provides less than half the effort. 2-Substantial/Maximal Assistance-helper does MORE THAN HALF the effort. [place] lifts or holds trunk or limbs and provides more than half the effort. 5-Sfiuhsfva-rymehm does ALL the effort. Patient does none of the effort to complete the activity. Or, the assistance of 2 or more helpers is required for the patient to complete the activity. If activity was not attempted, code reason: 7-Patient Refused. 9-Not Applicable-not attempted and the patient did not perform the activity before the current illness, exacerbation or injury. 10-Not Attempted due to Environmental Limitations-(lack of equipment, weather restraints, etc.). 88-Not Attempted due to Medical Conditions or Safety Concerns. rolling left and right as well as prone and back to side ...back all indep Weight Bearing Right Lower Extremity: Right Non Weight Bearing Left Lower Extremity: Left Full Weight Bearing Exercises Supine Ex: Bridging (L only), Ankle pumps (L only), Quad Set, Rolling, Glut sets, Heel Slides (L only), Short Arc Quads, Scooting, Straight leg raise, Hip abd/add (sidelying and sup) Supine Reps: 15 prone ham curls, hip ext, side lying hip ext and hip abd x 15 Assessment Current Status: Good Progress PT Short Term Goals Short Term Goals Time Frame: Aug 09, 2021 Roll Left & Right: 6 Sit to lyin Lying to sitting on side of be: 6 Sit to stand: 4 (CGA) Chair/owh-xg-dtsgq transfer: 4 (SBA) Walk 10 feet: 4 (SBA) Walk 50 feet with two turns: 4 (SBA) PT Prison Goals Prison Goals PT Magnet Valve Assembler Goals Time Frame: August 23, 2021 Roll Left & Right (QC): 6 Sit to Lying (QC): 6 Lying-Sitting on Side/Bed(QC): 6 Sit to Stand (QC): 6 Chair/Ajy-uw-Pvsue Xfer(QC): 6 Toilet Transfer (QC): 6 Car Transfer (QC): 4 Does the Patient Walk: Yes Walk 10 feet (QC): 4 Walk 50ft with 2 Turns (QC): 4 Walk 150 ft (QC): 4 Walking 10ft on Uneven Surface: 4 1 Step (curb) (QC): 4 4 Steps (QC): 4 12 Steps (QC): 88 Picking up an Object (QC): 6 Wheel 50 feet with 2 turns (QC: 9 Wheel 150 feet: 9 PT Plan Treatment/Plan Treatment Plan: Continue Plan of Care Treatment Plan: Bed Mobility, Education, Functional Activity Teodoro, Functional Strength, Group Therapy, Gait, Safety, Therapeutic Exercise, Transfers Treatment Duration: August 23, 2021 Frequency: At least 5 of 7 days/Wk (IRF) Estimated Hrs Per Day: 1.5 hours per day Patient and/or Family Agrees t: Yes Safety Risks/Education Patient Education: Correct Positioning Time/GCodes Time In: 1300 Time Out: 1330 Total Billed Treatment Time: 30 Total Billed Treatment 1,EX30m SUN TUTTLE CUSTOM WOOD STAIR BUILDER Aug 07, 2021 13:33
[2021-08-07] MEDS ORDERED: MTP25TSR PO (15:59)
[2021-08-07] MEDS ORDERED: ASPI-1238 PO (16:00)
[2021-08-07] MEDS ORDERED: CETI10TA17 PO (16:01)
[2021-08-07] MEDS ORDERED: MULT-436 PO (16:01)
[2021-08-07] MEDS ORDERED: MV-M1COM2 PO (16:03)
[2021-08-07] MEDS ORDERED: ACET-2267 PO (16:04)
[2021-08-07] MEDS ORDERED: MELA10TA2 PO (16:05)
[2021-08-07] MEDS ORDERED: PREN-8 PO (16:07)
[2021-08-07] MEDS: BACLOFEN 10 MG (LIORESAL) TAB PO SCH ×2 (18:03→23:01)
[2021-08-07 19:36] VITALS: BP 136/74
[2021-08-08] MEDS: METOCLOPRAMIDE 10 MG (REGLAN) TAB PO SCH ×4 (04:48→19:45)
[2021-08-08] MEDS: BACLOFEN 10 MG (LIORESAL) TAB PO SCH ×4 (04:48→23:46)
[2021-08-08] MEDS: HYDROcodone/APAP 7.5 MG/325 MG (LORTAB, LORCET PLUS) TABLET PO PRN ×5 (04:48→23:46)
--- NOTE | 2021-08-08 06:46 | PM&R Progress Note ---
Subjective HPI/CC On Admission Date Seen by Provider: Aug 08, 2021 Time Seen by Provider: 09:30 Subjective/Events-last exam 08/08/2021: Pt is doing well Blood sugar is 171 Pain pill was given Reglan seems to be helping with any gastroparesis that I suspected 08/07/2021: Pt is doing pretty well, sleeping soundly right now Appears to have some sleep apnea Bowels moved today Holding insulin due to blood sugar less than 130 08/06/21: Patient having more N/V Gastroparesis is assumed Reglan will be initiated Checked meds and labs 08/05/2021: Patient having a better day No pain is reported No falls Eating and drinking well Blood sugars labile 08/04/2021: Labile blood sugars Hemoglobin A1c actually reasonable Patient is feeling nauseated and fatigued today but that has passed Pain is controlled Doing well 08/03/2021: Patient doing really well Blood sugars are very labile indicating poor control at home thus risk factor for amputations as he has had No pain is reported right now No falls Bowels are moving Tolerating therapy 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 Review of Systems General: Fatigue, Malaise Musculoskeletal: leg pain Objective Exam Vital Signs Vital Signs Date Time Temp Pulse Resp B/P (MAP) Pulse Ox O2 Delivery O2 Flow Rate FiO2 08/08/21 20:15 Room Air 08/08/21 19:35 37.0 72 18 143/76 (98) 99 Capillary Refill : General Appearance: No Apparent Distress, WD/WN, Chronically ill, Obese HEENT: PERRL/EOMI, Normal ENT Inspection, Pharynx Normal Neck: Full Range of Motion, Normal Inspection, Non Tender, Supple, Carotid Bruit Respiratory: Chest Non Tender, Lungs Clear, Normal Breath Sounds, No Accessory Muscle Use, No Respiratory Distress Cardiovascular: Regular Rate, Rhythm, No Edema, No Gallop, No JVD, No Murmur, Normal Peripheral Pulses Gastrointestinal: Normal Bowel Sounds, No Organomegaly, No Pulsatile Mass, Non Tender, Soft Back: Normal Inspection, No CVA Tenderness, No Vertebral Tenderness Extremity: Normal Capillary Refill, Normal Inspection, Normal Range of Motion (Right BKA), Non Tender, No Calf Tenderness, No Pedal Edema Neurologic/Psychiatric: Alert, Oriented x3, No Motor/Sensory Deficits, Normal 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 FIM Transfers Therapy Code Descriptions/Definitions Functional [place] Measure: 0=Not Assessed/NA 4=Minimal Assistance 1=Total Assistance 5=Supervision or Setup 2=Maximal Assistance 6=Modified [place] 3=Moderate Assistance 7=Complete IndependenceSCALE: Activities may be completed with or without assistive devices. 6-Oueragecse-bdtcftu completes the activity by him/herself with no assistance from a helper. 5-Set-up or Clean-up Assistance-helper sets up or cleans up; patient completes activity. [place] assists only prior to or following the activity. 4-Supervision or Touching Assistance-helper provides verbal cues and/or touching/steadying and/or contact guard assistance as patient completes activity. Assistance may be provided throughout the activity or intermittently. 3-Partial/Moderate Assistance-helper does LESS THAN HALF the effort. [place] lif ts, holds or supports trunk or limbs, but provides less than half the effort. 2-Substantial/Maximal Assistance-helper does MORE THAN HALF the effort. [place] lifts or holds trunk or limbs and provides more than half the effort. 8-Ojhtsrsqp-frhwiz does ALL the effort. Patient does none of the effort to complete the activity. Or, the assistance of 2 or more helpers is required for the patient to complete the activity. If activity was not attempted, code reason: 7-Patient Refused. 9-Not Applicable-not attempted and the patient did not perform the activity before the current illness, exacerbation or injury. 10-Not Attempted due to Environmental Limitations-(lack of equipment, weather restraints, etc.). 88-Not Attempted due to Medical Conditions or Safety Concerns. Roll Left to Right (QC): 6 Sit to Lying (QC): 6 Sit to Stand (QC): 4 Chair/Pxl-dx-Ngebc Xfer(QC): 6 Car Transfer (QC): 3 Gait Training Does the Patient Walk?: Yes Distance: 25', 15', 10', 10' Walk 10 feet (QC): 4 Walk 50 ft with 2 Turns(QC): 88 Walk 150 ft (QC): 88 Walking 10ft/uneven surface-QC: 4 Gait Persons Needed: 1 Gait Assistive Device: FWW Wheelchair Training Does the Pt Use a Wheelchair?: Yes Wheel 50 ft with 2 turns (QC): 6 Wheel 150 ft (QC): 6 Type of Wheelchair: Manual Stair Training 1 Step (curb) (QC): 88 4 Steps (QC): 88 12 Steps (QC): 88 Balance Picking up an Object (QC): 4 (using internal controls consultant) ADL-Treatment Eating (QC): 6 (IND per pt report.) Oral Hygiene (QC): 6 (seated at sink.) Shower/Bathe Self (QC): 7 Upper Body Dressing (QC): 6 (IND with lug breaker and wire puller shirt.) Lower Body Dressing (QC): 6 (IND at bed level.) On/Off Footwear (QC): 5 (Set up) Toileting Hygiene (QC): 3 (Rolando) Toilet Transfer (QC): 4 (Steady Assist) Assessment/Plan Assessment and Plan Assess & Plan/Chief Complaint Assessment: Status post right BKA Diabetes insulin-dependent Hypertension Hyperlipidemia Mood disorder Obesity Severe neuropathy N/V recurrent presumed Gastroparesis Plan: Supportive care Aggressive rehab Pain control 08/03/2021: Monitor insulin and sugar Supportive care 08/04/2021: Continue aggressive therapy Insulin 08/05/2021: Insulin management Supportive care Pain control 08/06/21: Reglan initiated Monitor closely 08/07/2021: Supportive care Monitor blood sugar 08/08/2021: Pain meds Aggressive rehab (1) Hx of right BKA (2) Diabetes mellitus, insulin dependent (IDDM), uncontrolled (3) Obesity (4) Hypertension (5) Hyperlipidemia (6) Neuropathy (7) Mood disorder SHLOMO PATEL DO Aug 08, 2021 06:46
[2021-08-08 07:28] VITALS: BP 154/68
[2021-08-08] MEDS: polyethylene glycoL POWDER 17 GM (MIRALAX) PACK PO SCH ×2 (07:46→19:39)
[2021-08-08] MEDS: SENNA W/DOCUSATE (SENOKOT S) TABLET PO SCH ×2 (07:46→19:39)
[2021-08-08] MEDS: DOCUSATE SODIUM 100 MG (COLACE) CAP PO SCH ×2 (07:46→19:39)
[2021-08-08] MEDS: inSUlin ASPART (NovoLOG) 1 UNIT/0.01 ML (CHARGE PER UNIT) SC SCH ×3 (08:21→16:00)
[2021-08-08] MEDS: amLODIPine 5 MG (NORVASC) TAB PO SCH (08:22)
[2021-08-08] MEDS: ASPIRIN E.C. 81 MG (ECOTRIN) TAB PO SCH (08:22)
[2021-08-08] MEDS: PANTOPRAZOLE 20 MG TABLET (PROTONIX) PO SCH ×2 (08:22→19:45)
[2021-08-08] MEDS: SIMvastatin 10 MG (ZOCOR) TAB PO SCH (08:22)
[2021-08-08] MEDS: buPROPion SR 150 MG (WELLBUTRIN SR) TAB PO SCH (08:22)
[2021-08-08] MEDS: HYPOCHLOROUS ACID/NaCl (VASHE) 250 ML IR SCH (08:23)
--- NOTE | 2021-08-08 08:52 | Physical Therapy Daily Note ---
PT Daily Note-Current Subjective Patient states that he had a rough night last night and was really tired. patient says that his back is feeling pretty painful at the moment. Pt consented to treat. Pain Comment: No numerical value given. Mental Status Patient Orientation: Person, Place, Time, Situation Transfers SCALE: Activities may be completed with or without assistive devices. 2-Sssvegshsl-pqmhfue completes the activity by him/herself with no assistance from a helper. 5-Set-up or Clean-up Assistance-helper sets up or cleans up; patient completes activity. [place] assists only prior to or following the activity. 4-Supervision or Touching Assistance-helper provides verbal cues and/or touching/steadying and/or contact guard assistance as patient completes activity. Assistance may be provided throughout the activity or intermittently. 3-Partial/Moderate Assistance-helper does LESS THAN HALF the effort. [place] lifts, holds or supports trunk or limbs, but provides less than half the effort. 2-Substantial/Maximal Assistance-helper does MORE THAN HALF the effort. [place] lifts or holds trunk or limbs and provides more than half the effort. 5-Rbgnleinr-kauzir does ALL the effort. Patient does none of the effort to complete the activity. Or, the assistance of 2 or more helpers is required for the patient to complete the activity. If activity was not attempted, code reason: 7-Patient Refused. 9-Not Applicable-not attempted and the patient did not perform the activity before the current illness, exacerbation or injury. 10-Not Attempted due to Environmental Limitations-(lack of equipment, weather restraints, etc.). 88-Not Attempted due to Medical Conditions or Safety Concerns. Sit to Lying (QC): 6 Lying to Sitting/Side of Bed(Q: 6 Sit to Stand (QC): 6 Chair/Exx-fv-Kyhmc Xfer(QC): 6 Weight Bearing Right Lower Extremity: Right Non Weight Bearing Left Lower Extremity: Left Full Weight Bearing Gait Training Does the Patient Walk?: Yes Distance: 15ft, 20ft x 6 Walk 10 feet (QC): 4 (SBA) Gait Assistive Device: FWW Wheelchair Training Does the Pt Use a Wheelchair?: Yes Wheel 50 ft with 2 turns (QC): 6 Wheel 150 ft (QC): 6 Type of Wheelchair: Manual 250' x 2 Exercises Supine Ex: Quad Set (6lb weight on R knee), Glut sets, Straight leg raise Hip extensions in prone 3 x 10. Leg curl in prone 3 x 10 Standing in Parallel bars: Marches with stool supporting R leg (30reps). heel raises (2x15). mini squats (2x10) Treatments LE strengthening, Ambulation, mobility Assessment Current Status: Fair Progress Patient show improved strength today with walking, as he was able to tolerate more bouts of short distances. Patient also showed improved strength with LE exercises listed above. Patient was left in chair with call light, tray, and all needs met. PT Short Term Goals Short Term Goals Time Frame: Aug 09, 2021 Roll Left & Right: 6 Sit to lyin Lying to sitting on side of be: 6 Sit to stand: 4 (CGA) Chair/rwo-ih-jvpbg transfer: 4 (SBA) Walk 10 feet: 4 (SBA) Walk 50 feet with two turns: 4 (SBA) PT Farmworker Poultry Goals Farmworker Poultry Goals PT Fdc Goals Time Frame: August 23, 2021 Roll Left & Right (QC): 6 Sit to Lying (QC): 6 Lying-Sitting on Side/Bed(QC): 6 Sit to Stand (QC): 6 Chair/Cji-be-Ecnhe Xfer(QC): 6 Toilet Transfer (QC): 6 Car Transfer (QC): 4 Does the Patient Walk: Yes Walk 10 feet (QC): 4 Walk 50ft with 2 Turns (QC): 4 Walk 150 ft (QC): 4 Walking 10ft on Uneven Surface: 4 1 Step (curb) (QC): 4 4 Steps (QC): 4 12 Steps (QC): 88 Picking up an Object (QC): 6 Wheel 50 feet with 2 turns (QC: 9 Wheel 150 feet: 9 PT Plan Problem List Problem List: Activity Tolerance, Functional Strength, Safety, Balance, Gait, Transfer, ROM Treatment/Plan Treatment Plan: Continue Plan of Care Treatment Plan: Bed Mobility, Education, Functional Activity Teodoro, Functional Strength, Group Therapy, Gait, Safety, Therapeutic Exercise, Transfers Treatment Duration: August 23, 2021 Frequency: At least 5 of 7 days/Wk (IRF) Estimated Hrs Per Day: 1.5 hours per day Patient and/or Family Agrees t: Yes Safety Risks/Education Patient Education: Gait Training, Transfer Techniques, W/C Management, Safety Issues Teaching Recipient: Patient Teaching Methods: Discussion Response to Teaching: Verbalize Understanding Time/GCodes Time In: 0800 Time Out: 0900 Total Billed Treatment Time: 60 Total Billed Treatment 1 visit EX 45min GT 15min MATTHEW MAURICIO PT Aug 08, 2021 08:52
--- NOTE | 2021-08-08 10:22 | Occupational Ther Daily Note ---
OT Current Status-Daily Note Subjective Pt in bed, agreeable to OT tx. Mental Status/Objective Patient Orientation: Person, Place, Situation ADL-Treatment Therapy Code Descriptions/Definitions Functional [place] Measure: 0=Not Assessed/NA 4=Minimal Assistance 1=Total Assistance 5=Supervision or Setup 2=Maximal Assistance 6=Modified [place] 3=Moderate Assistance 7=Complete IndependenceSCALE: Activities may be completed with or without assistive devices. 9-Pqgxomnbwv-mioyufc completes the activity by him/herself with no assistance from a helper. 5-Set-up or Clean-up Assistance-helper sets up or cleans up; patient completes activity. [place] assists only prior to or following the activity. 4-Supervision or Touching Assistance-helper provides verbal cues and/or touching/steadying and/or contact guard assistance as patient completes activity. Assistance may be provided throughout the activity or intermittently. 3-Partial/Moderate Assistance-helper does LESS THAN HALF the effort. [place] lifts, holds or supports trunk or limbs, but provides less than half the effort. 2-Substantial/Maximal Assistance-helper does MORE THAN HALF the effort. [place] lifts or holds trunk or limbs and provides more than half the effort. 5-Qckdeorgu-odpthk does ALL the effort. Patient does none of the effort to complete the activity. Or, the assistance of 2 or more helpers is required for the patient to complete the activity. If activity was not attempted, code reason: 7-Patient Refused. 9-Not Applicable-not attempted and the patient did not perform the activity before the current illness, exacerbation or injury. 10-Not Attempted due to Environmental Limitations-(lack of equipment, weather restraints, etc.). 88-Not Attempted due to Medical Conditions or Safety Concerns. Other Treatment Pt in bed, agreeable to OT tx. Pt transferred to EOB independently, then transferred to w/c independently, scooting between surfaces. Pt completed grooming tasks, seated at sink independently. OT tx with focus on increasing BUE strength and activity tolerance. Pt propelled w/c to therapy gym, completed arm bike [id number], 25 Watt resistance. Pt removed beads from heavy resistance theraputty, able to locate all beads without cues. Pt placed/removed 1" pegs from foam pegboard, alternating hands, 1lb wrist weights BUEs. Pt then participated in functional activity, playing Connect-4, 1lb wrist weights BUEs. Pt used BUEs throughout task, tolerating task for ~20 mins. Pt propelled w/c around ARU common area and back to his room, then transferred to bed independently. Post tx, pt in bed, call light in reach and all needs met. Education OT Patient Education: Correct positioning, Energy conservation, Modified ADL techniques, Progress toward Goal/Update tx plan, Purpose of tx/functional activities, Rehab process Teaching Recipient: Patient Teaching Methods: Discussion Response to Teaching: Verbalize Understanding OT Short Term Goals Short Term Goals Time Frame: Aug 09, 2021 Eatin Oral hygiene: 6 Toileting hygiene: 4 Shower/bathe self: 4 Upper body dressin Lower body dressin Putting on/taking off footwear: 5 OT Assisted Goals Stitcher Special Machine Goals Time Frame: Aug 14, 2021 Eating (QC): 6 Oral Hygiene (QC): 6 Toileting Hygiene (QC): 6 Shower/Bathe Self (QC): 6 Upper Body Dressing (QC): 6 Lower Body Dressing (QC): 6 On/Off Footwear (QC): 6 1=Demonstrate adherence to instructed precautions during ADL tasks. 2=Patient will verbalize/demonstrate understanding of assistive devices/modifications for ADL. 3=Patient will improve strength/tolerance for activity to enable patient to perform ADL's. OT Education/Plan Problem List/Assessment Assessment: Decreased Activ Tolerance, Decreased UE Strength, Impaired Funct Balance, Impaired I ADL's Discharge Recommendations Plan/Recommendations: Continue POC Treatment Plan/Plan of Care Patient would benefit from OT for education, treatment and training to promote independence in ADL's, mobility, safety and/or upper extremity function for ADL's. Plan of Care: ADL Retraining, Functional Mobility, Group Exercise/Act as Ind, Orthotic Fitting/Training, UE Funct Exercise/Act Treatment Duration: Aug 14, 2021 Frequency: At least 5 of 7 days/Wk (IRF) Estimated Hrs Per Day: 1.5 hours per day (60-90 min/day) Rehab Potential: Good Time/GCodes Start Time: 10:00 Stop Time: 11:30 Total Time Billed (hr/min): 90 Billed Treatment Time 1, ADL (15'), EX (15'), FA 4 (60') EROS ANDRADE OT Aug 08, 2021 10:22
--- NOTE | 2021-08-08 14:01 | Physical Therapy Daily Note ---
PT Daily Note-Current Subjective Patient was in bed upon arrival and had no new complaints. Patient consented to treatment Pain Location: No Pain Reported Mental Status Patient Orientation: Person, Place, Time, Situation Transfers SCALE: Activities may be completed with or without assistive devices. 3-Wufjuydnin-wjmhvxf completes the activity by him/herself with no assistance from a helper. 5-Set-up or Clean-up Assistance-helper sets up or cleans up; patient completes activity. [place] assists only prior to or following the activity. 4-Supervision or Touching Assistance-helper provides verbal cues and/or to uching/steadying and/or contact guard assistance as patient completes activity. Assistance may be provided throughout the activity or intermittently. 3-Partial/Moderate Assistance-helper does LESS THAN HALF the effort. [place] lifts, holds or supports trunk or limbs, but provides less than half the effort. 2-Substantial/Maximal Assistance-helper does MORE THAN HALF the effort. [place] lifts or holds trunk or limbs and provides more than half the effort. 5-Jubnpcnay-ochzfi does ALL the effort. Patient does none of the effort to complete the activity. Or, the assistance of 2 or more helpers is required for the patient to complete the activity. If activity was not attempted, code reason: 7-Patient Refused. 9-Not Applicable-not attempted and the patient did not perform the activity before the current illness, exacerbation or injury. 10-Not Attempted due to Environmental Limitations-(lack of equipment, weather restraints, etc.). 88-Not Attempted due to Medical Conditions or Safety Concerns. Sit to Stand (QC): 6 Chair/Opm-jp-Urljz Xfer(QC): 6 Weight Bearing Right Lower Extremity: Right Non Weight Bearing Left Lower Extremity: Left Full Weight Bearing Gait Training Does the Patient Walk?: Yes Distance: 15', 25', 15' Walk 10 feet (QC): 4 Gait Assistive Device: FWW slow but steady ambulation Exercises NuStep Minutes: 15 NuStep Workload: 6 Treatments LE strengthening, ambulation, transfer Assessment Current Status: Good Progress Patient was able to tolerate longer distance on Nustep machine today with less complaints of low back pain. Patient still has trouble ambulating longer d istances and requires frequent sitting rest breaks. Patient was left in bed with call light, tray, and all needs met. PT Short Term Goals Short Term Goals Time Frame: Aug 09, 2021 Roll Left & Right: 6 Sit to lyin Lying to sitting on side of be: 6 Sit to stand: 4 (CGA) Chair/hxr-un-zpwyt transfer: 4 (SBA) Walk 10 feet: 4 (SBA) Walk 50 feet with two turns: 4 (SBA) PT Half-Way Goals Half-Way Goals PT Half-Way Goals Time Frame: August 23, 2021 Roll Left & Right (QC): 6 Sit to Lying (QC): 6 Lying-Sitting on Side/Bed(QC): 6 Sit to Stand (QC): 6 Chair/Fov-ir-Jjhbk Xfer(QC): 6 Toilet Transfer (QC): 6 Car Transfer (QC): 4 Does the Patient Walk: Yes Walk 10 feet (QC): 4 Walk 50ft with 2 Turns (QC): 4 Walk 150 ft (QC): 4 Walking 10ft on Uneven Surface: 4 1 Step (curb) (QC): 4 4 Steps (QC): 4 12 Steps (QC): 88 Picking up an Object (QC): 6 Wheel 50 feet with 2 turns (QC: 9 Wheel 150 feet: 9 PT Plan Problem List Problem List: Activity Tolerance, Functional Strength, Safety, Balance, Gait, Transfer, Bed Mobility, ROM Treatment/Plan Treatment Plan: Continue Plan of Care Treatment Plan: Bed Mobility, Education, Functional Activity Teodoro, Functional Strength, Group Therapy, Gait, Safety, Therapeutic Exercise, Transfers Treatment Duration: August 23, 2021 Frequency: At least 5 of 7 days/Wk (IRF) Estimated Hrs Per Day: 1.5 hours per day Patient and/or Family Agrees t: Yes Safety Risks/Education Patient Education: Gait Training, Transfer Techniques, Safety Issues Teaching Recipient: Patient Teaching Methods: Discussion Response to Teaching: Verbalize Understanding, Return Demonstration Time/GCodes Time In: 1330 Time Out: 1400 Total Billed Treatment Time: 30 Total Billed Treatment 1 visit EX 15min GT 15min MATTHEW MAURICIO PT Aug 08, 2021 14:01
[2021-08-08 19:35] VITALS: BP 143/76
[2021-08-09] MEDS: HYDROcodone/APAP 7.5 MG/325 MG (LORTAB, LORCET PLUS) TABLET PO PRN ×3 (05:04→22:16)
[2021-08-09] MEDS: METOCLOPRAMIDE 10 MG (REGLAN) TAB PO SCH ×4 (05:04→21:21)
[2021-08-09] MEDS: BACLOFEN 10 MG (LIORESAL) TAB PO SCH ×4 (05:04→23:55)
--- NOTE | 2021-08-09 06:34 | PM&R Progress Note ---
Subjective HPI/CC On Admission Date Seen by Provider: Aug 09, 2021 Time Seen by Provider: 09:30 Subjective/Events-last exam 08/09/21: Pt is doing a lot better Took a shower today Discharge planned for tomorrow Dressing looks really good Bowels are moving Blood sugar was 145 08/08/2021: Pt is doing well Blood sugar is 171 Pain pill was given Reglan seems to be helping with any gastroparesis that I suspected 08/07/2021: Pt is doing pretty well, sleeping soundly right now Appears to have some sleep apnea Bowels moved today Holding insulin due to blood sugar less than 130 08/06/21: Patient having more N/V Gastroparesis is assumed Reglan will be initiated Checked meds and labs 08/05/2021: Patient having a better day No pain is reported No falls Eating and drinking well Blood sugars labile 08/04/2021: Labile blood sugars Hemoglobin A1c actually reasonable Patient is feeling nauseated and fatigued today but that has passed Pain is controlled Doing well 08/03/2021: Patient doing really well Blood sugars are very labile indicating poor control at home thus risk factor for amputations as he has had No pain is reported right now No falls Bowels are moving Tolerating therapy 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 Review of Systems General: Fatigue, Malaise Objective Exam Vital Signs Vital Signs Date Time Temp Pulse Resp B/P (MAP) Pulse Ox O2 Delivery O2 Flow Rate FiO2 08/09/21 21:10 Room Air 08/09/21 19:49 36.8 65 20 153/69 (97) 96 Capillary Refill : General Appearance: No Apparent Distress, WD/WN, Chronically ill, Obese HEENT: PERRL/EOMI, Normal ENT Inspection, Pharynx Normal Neck: Full Range of Motion, Normal Inspection, Non Tender, Supple, Carotid Bruit Respiratory: Chest Non Tender, Lungs Clear, Normal Breath Sounds, No Accessory Muscle Use, No Respiratory Distress Cardiovascular: Regular Rate, Rhythm, No Edema, No Gallop, No JVD, No Murmur, Normal Peripheral Pulses Gastrointestinal: Normal Bowel Sounds, No Organomegaly, No Pulsatile Mass, Non Tender, Soft Back: Normal Inspection, No CVA Tenderness, No Vertebral Tenderness Extremity: Normal Capillary Refill, Normal Inspection, Normal Range of Motion (Right BKA), Non Tender, No Calf Tenderness, No Pedal Edema Neurologic/Psychiatric: Alert, Oriented x3, No Motor/Sensory Deficits, Normal Mood/Affect, bellows tester II-XII Norm as Tested, Abnormal Gait, Motor Weakness (Generalized) Skin: Normal Color, Warm/Dry Lymphatic: No Adenopathy Results/Procedures Lab Patient resulted labs reviewed. FIM Transfers Therapy Code Descriptions/Definitions Functional [place] Measure: 0=Not Assessed/NA 4=Minimal Assistance 1=Total Assistance 5=Supervision or Setup 2=Maximal Assistance 6=Modified [place] 3=Moderate Assistance 7=Complete IndependenceSCALE: Activities may be completed with or without assistive devices. 7-Rkqfautvcv-ctvwoar completes the activity by him/herself with no assistance from a helper. 5-Set-up or Clean-up Assistance-helper sets up or cleans up; patient completes activity. [place] assists only prior to or following the activity. 4-Supervision or Touching Assistance-helper provides verbal cues and/or touchi ng/steadying and/or contact guard assistance as patient completes activity. Assistance may be provided throughout the activity or intermittently. 3-Partial/Moderate Assistance-helper does LESS THAN HALF the effort. [place] lifts, holds or supports trunk or limbs, but provides less than half the effort. 2-Substantial/Maximal Assistance-helper does MORE THAN HALF the effort. [place] lifts or holds trunk or limbs and provides more than half the effort. 6-Kxtiftbrg-xcvojt does ALL the effort. Patient does none of the effort to complete the activity. Or, the assistance of 2 or more helpers is required for the patient to complete the activity. If activity was not attempted, code reason: 7-Patient Refused. 9-Not Applicable-not attempted and the patient did not perform the activity before the current illness, exacerbation or injury. 10-Not Attempted due to Environmental Limitations-(lack of equipment, weather restraints, etc.). 88-Not Attempted due to Medical Conditions or Safety Concerns. Roll Left to Right (QC): 6 Sit to Lying (QC): 6 Sit to Stand (QC): 6 Chair/Kfj-oe-Taurn Xfer(QC): 6 Car Transfer (QC): 3 Gait Training Does the Patient Walk?: Yes Distance: 15', 25', 15' Walk 10 feet (QC): 4 Walk 50 ft with 2 Turns(QC): 88 Walk 150 ft (QC): 88 Walking 10ft/uneven surface-QC: 4 Gait Persons Needed: 1 Gait Assistive Device: FWW Wheelchair Training Does the Pt Use a Wheelchair?: Yes Wheel 50 ft with 2 turns (QC): 6 Wheel 150 ft (QC): 6 Type of Wheelchair: Manual Stair Training 1 Step (curb) (QC): 88 4 Steps (QC): 88 12 Steps (QC): 88 Balance Picking up an Object (QC): 4 (using assembler garment form) ADL-Treatment Eating (QC): 6 (IND per pt report.) Oral Hygiene (QC): 6 (seated at sink.) Shower/Bathe Self (QC): 7 Upper Body Dressing (QC): 6 (IND with bone puller shirt.) Lower Body Dressing (QC): 6 (IND at bed level.) On/Off Footwear (QC): 5 (Set up) Toileting Hygiene (QC): 3 (Rolando) Toilet Transfer (QC): 4 (Steady Assist) Assessment/Plan Assessment and Plan Assess & Plan/Chief Complaint Assessment: Status post right BKA Diabetes insulin-dependent Hypertension Hyperlipidemia Mood disorder Obesity Severe neuropathy N/V recurrent presumed Gastroparesis Plan: Supportive care Aggressive rehab Pain control 08/03/2021: Monitor insulin and sugar Supportive care 08/04/2021: Continue aggressive therapy Insulin 08/05/2021: Insulin management Supportive care Pain control 08/06/21: Reglan initiated Monitor closely 08/07/2021: Supportive care Monitor blood sugar 08/08/2021: Pain meds Aggressive rehab 08/09/2021: Discharge home tomorrow Amandeep Tate (1) Hx of right BKA (2) Diabetes mellitus, insulin dependent (IDDM), uncontrolled (3) Obesity (4) Hypertension (5) Hyperlipidemia (6) Neuropathy (7) Mood disorder SHLOMO PATEL DO Aug 09, 2021 06:34
[2021-08-09 07:25] VITALS: BP 175/91
[2021-08-09] MEDS: buPROPion SR 150 MG (WELLBUTRIN SR) TAB PO SCH (08:53)
[2021-08-09] MEDS: PANTOPRAZOLE 20 MG TABLET (PROTONIX) PO SCH ×2 (08:53→21:21)
[2021-08-09] MEDS: amLODIPine 5 MG (NORVASC) TAB PO SCH (08:54)
--- NOTE | 2021-08-09 08:54 | Occupational Ther Daily Note ---
OT Current Status-Daily Note Subjective Pt in bed, agreeable to OT Tx. Pt states no concerns with anticipated d/c tomorrow, and he feels ready. Mental Status/Objective Patient Orientation: Normal For Age ADL-Treatment Therapy Code Descriptions/Definitions Functional [place] Measure: 0=Not Assessed/NA 4=Minimal Assistance 1=Total Assistance 5=Supervision or Setup 2=Maximal Assistance 6=Modified [place] 3=Moderate Assistance 7=Complete IndependenceSCALE: Activities may be completed with or without assistive devices. 7-Zaojydttzo-pflhiir completes the activity by him/herself with no assistance from a helper. 5-Set-up or Clean-up Assistance-helper sets up or cleans up; patient completes activity. [place] assists only prior to or following the activity. 4-Supervision or Touching Assistance-helper provides verbal cues and/or touching/steadying and/or contact guard assistance as patient completes activity. Assistance may be provided throughout the activity or intermittently. 3-Partial/Moderate Assistance-helper does LESS THAN HALF the effort. [place] lifts, holds or supports trunk or limbs, but provides less than half the effort. 2-Substantial/Maximal Assistance-helper does MORE THAN HALF the effort. [place] lifts or holds trunk or limbs and provides more than half the effort. 8-Ntkxdatux-abtrmy does ALL the effort. Patient does none of the effort to complete the activity. Or, the assistance of 2 or more helpers is required for the patient to complete the activity. If activity was not attempted, code reason: 7-Patient Refused. 9-Not Applicable-not attempted and the patient did not perform the activity before the current illness, exacerbation or injury. 10-Not Attempted due to Environmental Limitations-(lack of equipment, weather restraints, etc.). 88-Not Attempted due to Medical Conditions or Safety Concerns. Eating (QC): 6 Oral Hygiene (QC): 6 Shower/Bathe Self (QC): 6 Upper Body Dressing (QC): 6 Lower Body Dressing (QC): 6 On/Off Footwear: 6 Toileting Hygiene (QC): 6 Toilet Transfer (QC): 6 Other Treatment Pt in bed, transferred supine to sit EOB, independently. Pt used FWW to transfer into bathroom and onto SC. Pt completed ADLs as outlined above, then used FWW to transfer to EOB, independently. Pt's nurse present to change pt's dressing. In order to increase BUE strength and activity tolerance, pt completed x15 reps 5/5 UE exercises using mod-heavy resistance theraband, min verbal cues for correct technique. Post tx, pt seated EOB, call light in reach and all needs met. Education OT Patient Education: Correct positioning, Energy conservation, Modified ADL techniques, Progress toward Goal/Update tx plan, Purpose of tx/functional activities, Rehab process Teaching Recipient: Patient Teaching Methods: Discussion Response to Teaching: Verbalize Understanding OT Short Term Goals Short Term Goals Time Frame: Aug 09, 2021 Eatin Oral hygiene: 6 Toileting hygiene: 4 Shower/bathe self: 4 Upper body dressin Lower body dressin Putting on/taking off footwear: 5 OT Tin [place]lipper Goals [place] Goals Time Frame: Aug 14, 2021 Eating (QC): 6 (met) Oral Hygiene (QC): 6 (met) Toileting Hygiene (QC): 6 (met) Shower/Bathe Self (QC): 6 (met) Upper Body Dressing (QC): 6 (met) Lower Body Dressing (QC): 6 (met) On/Off Footwear (QC): 6 (met) 1=Demonstrate adherence to instructed precautions during ADL tasks. 2=Patient will verbalize/demonstrate understanding of assistive devices/modifications for ADL. 3=Patient will improve strength/tolerance for activity to enable patient to perform ADL's. OT Education/Plan Problem List/Assessment Assessment: Decreased Activ Tolerance, Impaired I ADL's Discharge Recommendations Plan/Recommendations: Continue POC Treatment Plan/Plan of Care Patient would benefit from OT for education, treatment and training to promote independence in ADL's, mobility, safety and/or upper extremity function for ADL's. Plan of Care: ADL Retraining, Functional Mobility, Group Exercise/Act as Ind, Orthotic Fitting/Training, UE Funct Exercise/Act Treatment Duration: Aug 14, 2021 Frequency: At least 5 of 7 days/Wk (IRF) Estimated Hrs Per Day: 1.5 hours per day (60-90 min/day) Rehab Potential: Good Time/GCodes Start Time: 08:00 Stop Time: 09:00 Total Time Billed (hr/min): 60 Billed Treatment Time 1, ADL 3 (45'), EX (15') EROS ANDRADE OT Aug 09, 2021 08:54
[2021-08-09] MEDS: ASPIRIN E.C. 81 MG (ECOTRIN) TAB PO SCH (08:55)
[2021-08-09] MEDS: SIMvastatin 10 MG (ZOCOR) TAB PO SCH (08:56)
[2021-08-09] MEDS: inSUlin ASPART (NovoLOG) 1 UNIT/0.01 ML (CHARGE PER UNIT) SC SCH ×3 (09:00→15:42)
[2021-08-09] MEDS: HYPOCHLOROUS ACID/NaCl (VASHE) 250 ML IR SCH (09:11)
[2021-08-09] MEDS: polyethylene glycoL POWDER 17 GM (MIRALAX) PACK PO SCH ×2 (10:24→21:33)
[2021-08-09] MEDS: DOCUSATE SODIUM 100 MG (COLACE) CAP PO SCH ×2 (10:24→21:33)
[2021-08-09] MEDS: SENNA W/DOCUSATE (SENOKOT S) TABLET PO SCH ×2 (10:25→21:33)
--- NOTE | 2021-08-09 11:53 | Physical Therapy Daily Note ---
PT Daily Note-Current Subjective Pt agrees to PT. Mental Status Patient Orientation: Person, Place, Time, Situation Transfers SCALE: Activities may be completed with or without assistive devices. 7-Ruqbmuxtcz-ormyqvd completes the activity by him/herself with no assistance from a helper. 5-Set-up or Clean-up Assistance-helper sets up or cleans up; patient completes activity. [place] assists only prior to or following the activity. 4-Supervision or Touching Assistance-helper provides verbal cues and/or touching/steadying and/or contact guard assistance as patient completes activity. Assistance may be provided throughout the activity or intermittently. 3-Partial/Moderate Assistance-helper does LESS THAN HALF the effort. [place] lifts, holds or supports trunk or limbs, but provides less than half the effort. 2-Substantial/Maximal Assistance-helper does MORE THAN HALF the effort. [place] lifts or holds trunk or limbs and provides more than half the effort. 1-Hxxiyfsmv-swluep does ALL the effort. Patient does none of the effort to complete the activity. Or, the assistance of 2 or more helpers is required for the patient to complete the activity. If activity was not attempted, code reason: 7-Patient Refused. 9-Not Applicable-not attempted and the patient did not perform the activity before the current illness, exacerbation or injury. 10-Not Attempted due to Environmental Limitations-(lack of equipment, weather restraints, etc.). 88-Not Attempted due to Medical Conditions or Safety Concerns. Roll Left & Right (QC): 6 Sit to Lying (QC): 6 Lying to Sitting/Side of Bed(Q: 6 Sit to Stand (QC): 6 Chair/Gdf-ob-Dyvsl Xfer(QC): 6 Toilet Transfer (QC): 6 Car Transfer (QC): 6 Weight Bearing Right Lower Extremity: Right Non Weight Bearing Left Lower Extremity: Left Full Weight Bearing Gait Training Does the Patient Walk?: Yes Distance: 10' Walk 10 feet (QC): 4 Walk 50 ft with 2 Turns(QC): 4 Walk 150 ft (QC): 88 Walking 10ft/uneven surface-QC: 4 Gait Persons Needed: 1 Gait Assistive Device: FWW Wheelchair Training Does the Pt Use a Wheelchair?: Yes Wheel 50 ft with 2 turns (QC): 6 Wheel 150 ft (QC): 6 Type of Wheelchair: Manual Stair Training #of Steps: 4 1 Step (curb) (QC): 4 4 Steps (QC): 4 12 Steps (QC): 7 Stairs: Pattern: Hops Pt did single steps 4 times. Pt states he will have a ramp at home. Balance Picking up an Object (QC): 7 Special Test Comments ASSISTANCE REPRESENTATIVE discusses with pt about this, pt feels more comfortable picking up an object from a seated position and not standing. Exercises NuStep Minutes: 13 NuStep Workload: 5 Treatments Pt laying supine in bed upon arrival of PT. Pt completes QC and WC mobility in hallway. Pt completes NuStep then returns to room. All needs met, call light in hand. Assessment Current Status: Good Progress Pt is motivated to be independent with mobility. Pt states he was scared to try the step at first but soon did the step with no problem. PT Short Term Goals Short Term Goals Time Frame: Aug 09, 2021 Roll Left & Right: 6 Sit to lyin Lying to sitting on side of be: 6 Sit to stand: 4 (CGA) Chair/ifh-lh-fiusm transfer: 4 (SBA) Walk 10 feet: 4 (SBA) Walk 50 feet with two turns: 4 (SBA) PT Profile Trimmer Goals Penitentiary Goals PT Penitentiary Goals Time Frame: August 23, 2021 Roll Left & Right (QC): 6 Sit to Lying (QC): 6 Lying-Sitting on Side/Bed(QC): 6 Sit to Stand (QC): 6 Chair/Ttc-xj-Xtehv Xfer(QC): 6 Toilet Transfer (QC): 6 Car Transfer (QC): 4 Does the Patient Walk: Yes Walk 10 feet (QC): 4 Walk 50ft with 2 Turns (QC): 4 Walk 150 ft (QC): 4 Walking 10ft on Uneven Surface: 4 1 Step (curb) (QC): 4 4 Steps (QC): 4 12 Steps (QC): 88 Picking up an Object (QC): 6 Wheel 50 feet with 2 turns (QC: 9 Wheel 150 feet: 9 PT Plan Treatment/Plan Treatment Plan: Continue Plan of Care Treatment Plan: Bed Mobility, Education, Functional Activity Teodoro, Functional Strength, Group Therapy, Gait, Safety, Therapeutic Exercise, Transfers Treatment Duration: August 23, 2021 Frequency: At least 5 of 7 days/Wk (IRF) Estimated Hrs Per Day: 1.5 hours per day Patient and/or Family Agrees t: Yes Time/GCodes Time In: 1100 Time Out: 1200 Total Billed Treatment Time: 60 Total Billed Treatment 1, EX (15 min), WC (15 min), FA x2 (30 min) ANGÉLICA SANTANA ASSISTANCE REPRESENTATIVE Aug 09, 2021 11:53
[2021-08-09 12:03] VITALS: BP 131/75
[2021-08-09] MEDS: hydrALAZINE (APRESOLINE) 25 MG TAB PO SCH ×2 (12:05→21:21)
--- NOTE | 2021-08-09 14:51 | Therapy Group Daily Note ---
Therapy Daily Group Note Patient Education Topic Other List Below (ARU,car and chair TRFs, core ex, memory strategies) Exercises LE Seated Exercise, UE Exercise Session Ratio (pt:therapist): 3:1 Goal of Session: Education on ARU Expectations, UE/LE Strengthing, Safety with Transfers, Other (list) (core ex seated) Goal Met for this Session: Yes Pt Benefit of Group: Contributions to Others, Increased Functional Strength, Improved Cognition, Socialization Other/Notes Pt. participated in group session this date. Pt. independently wheeled himself to from group. Pt. was social, introducing himself and visiting with others , pts were educated regarding ARU and its requirements and practices . Pts. participated in seated U&L extremity exercises using 1 and 2# weights as well as seated core exercises. memory game and strategies were done utilizing images and challenging patients to remember their placement after they were turned over. Pts were educated and demonstrations we done for sit to stand from chair with arms , car TRFs, as well as curb step up down. Pt. back to room with peralta at hand after group. 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
[2021-08-09 16:39] VITALS: BP 132/79
[2021-08-09 19:49] VITALS: BP 153/69
[2021-08-10] MEDS: METOCLOPRAMIDE 10 MG (REGLAN) TAB PO SCH ×2 (06:04→11:47)
[2021-08-10] MEDS: BACLOFEN 10 MG (LIORESAL) TAB PO SCH ×2 (06:05→11:47)
[2021-08-10] MEDS: HYDROcodone/APAP 7.5 MG/325 MG (LORTAB, LORCET PLUS) TABLET PO PRN ×2 (06:07→11:47)
[2021-08-10] MEDS ORDERED: AMLO-250 PO (06:10)
[2021-08-10] MEDS ORDERED: INSU100V39 SQ (06:10)
[2021-08-10] MEDS ORDERED: MTC10T PO (06:10)
[2021-08-10] MEDS ORDERED: HYDR-3923 PO (06:10)
[2021-08-10] MEDS ORDERED: BACL10TA PO (06:10)
[2021-08-10] MEDS ORDERED: ARIP10TA10 PO (06:10)
[2021-08-10] MEDS ORDERED: INSU100V6 SQ (06:10)
[2021-08-10] MEDS ORDERED: OXC5T PO (06:10)
--- NOTE | 2021-08-10 06:12 | D/C HH Face to Face Order ---
D/C Face to Face Orders Reconcile Patient Problems Problems Reviewed?: Yes Instructions for Patient Integrity Patient Instructions/FollowUp: PCP 1 week Physician to follow Patient: PCP Discharge Diet for Home: ADA Diet Patient Problems: Right BKA Patient Data-Allergies,Ht & Wt Patient Allergies: Coded Allergies: No Known Allergies (Verified Allergy, Unknown, 08/02/21) Home Health Need/Face to Face Date of Face to Face: Aug 10, 2021 Clinical Findings: Instability, Muscle weakness, Unsteady gait I have seen Pt [id number]: Yes Discharged To: Home Diagnosis/Conditions: Right BKA Patient is Homebound due to: Tunde fall risk due to instabilty, Muscle weaknes s, Non-weight bearing Homebound Status Due to the above stated illness, injury or surgical procedure (medical condition or diagnosis) and associated clinical findings, the patient is homebound because of his/her inability to leave home except with aid of a supportive device and/or person AND leaving the home requires a considerable and taxing effort or is medically contraindicated. Pt req the following assistanc: Walker, Wheelchair Home Health Nursing Orders Home Health Services Order: Nursing Services, Wood Milling Machine Tender-Evaluate & Treat, Physical Therapy-Evaluate & Treat Certify Stmt I certify that this patient is under my care and that I, a nurse practitioner or a physician; a cement tester assistant working with me, had a face to face encounter that - meets the physician face to face encounter requirements with this patient as dated. SLHOMO PATEL DO Aug 10, 2021 06:12
--- NOTE | 2021-08-10 06:12 | Discharge Summary ---
Diagnosis/Chief Complaint Date of Admission Aug 02, 2021 at 14:40 Date of Discharge Discharge Date: Aug 10, 2021 Discharge Diagnosis Assessment: Status post right BKA Diabetes insulin-dependent Hypertension Hyperlipidemia Mood disorder Obesity Severe neuropathy N/V recurrent presumed Gastroparesis Plan: Supportive care Aggressive rehab Pain control 08/03/2021: Monitor insulin and sugar Supportive care 08/04/2021: Continue aggressive therapy Insulin 08/05/2021: Insulin management Supportive care Pain control 08/06/21: Reglan initiated Monitor closely 08/07/2021: Supportive care Monitor blood sugar 08/08/2021: Pain meds Aggressive rehab (1) Hx of right BKA (2) Diabetes mellitus, insulin dependent (IDDM), uncontrolled (3) Obesity (4) Hypertension (5) Hyperlipidemia (6) Neuropathy (7) Mood disorder Discharge Summary Discharge Physical Examination Allergies: Coded Allergies: No Known Allergies (Verified Allergy, Unknown, 08/02/21) Vitals & I&Os Vital Signs Date Time Temp Pulse Resp B/P (MAP) Pulse Ox O2 Delivery O2 Flow Rate FiO2 08/10/21 15:20 36.8 80 18 159/87 97 Room Air General Appearance: Alert, Oriented X3, Cooperative Respiratory: Clear to Auscultation Cardiovascular: Regular Rate Neuro: Normal Gait, Normal Speech, Strength at 5/5 X4 Ext Psych/Mental Status: Mental Status NL Hospital Course Was the Problem List Reviewed?: Yes Hospital course: Patient went for hospital course for 9 days after presenting status post right below the knee amputation. Blood sugars remained stable but I did stop metformin, hydrochlorothiazide, losartan due to creatinine going from 1.6-2.1. Insulin was adjusted to prevent hypoglycemia. Pain was well controlled with narcotics and baclofen. Bowels returned back to normal function. Patient was deemed stable for discharge. Labs (last 24 hrs) Laboratory Tests 08/02/21 16:11: Glucometer 185H 08/02/21 20:21: Glucometer 117H 08/03/21 02:02: Glucometer 103 08/03/21 05:54: White Blood Count 9.2, Red Blood Count 3.52L, Hemoglobin 10.0L, Hematocrit 30L, Mean Corpuscular Volume 86, Mean Corpuscular Hemoglobin 28, Mean Corpuscular Hemoglobin Concent 33, Red Cell Distribution Width 14.3, Platelet Count 196, Mean Platelet Volume 10.7, Immature Granulocyte % (Auto) 0, Neutrophils (%) (Auto) 69, Lymphocytes (%) (Auto) 19, Monocytes (%) (Auto) 5, Eosinophils (%) (Auto) 6, Basophils (%) (Auto) 1, Neutrophils # (Auto) 6.3, Lymphocytes # (Auto) 1.7, Monocytes # (Auto) 0.5, Eosinophils # (Auto) 0.6H, Basophils # (Auto) 0.1, Immature Granulocyte # (Auto) 0.0, Sodium Level 140, Potassium Level 3.6, Chloride Level 104, Carbon Dioxide Level 22, Anion Gap 14, Blood Urea Nitrogen 18, Creatinine 1.60H, Estimat Glomerular Filtration Rate 52, BUN/Creatinine Ratio 11, Glucose Level 133H, Calcium Level 9.0, Corrected Calcium 9.6, Total Bilirubin 0.4, Aspartate Amino Transf (AST/SGOT) 13, Alanine Aminotransferase (ALT/SGPT) 10, Alkaline Phosphatase 113, Total Protein 6.0L, Albumin 3.2, Thyroid Stimulating Hormone (TSH) 0.95 08/03/21 06:05: Mean Blood Glucose 169H, Hemoglobin A1c 7.5H 08/03/21 11:00: Glucometer 201H 08/03/21 15:21: Glucometer 96 08/03/21 20:13: Glucometer 99 08/04/21 06:32: Glucometer 167H 08/04/21 08:45: Glucometer 246H 08/04/21 10:50: Glucometer 171H 08/04/21 16:12: Glucometer 139H 08/04/21 20:58: Glucometer 216H 08/05/21 05:43: Glucometer 186H 08/05/21 10:53: Glucometer 203H 08/05/21 16:56: Glucometer 241H 08/05/21 20:31: Glucometer 158H 08/06/21 00:42: Glucometer 136H 08/06/21 06:32: Glucometer 193H 08/06/21 11:00: Glucometer 194H 08/06/21 15:44: Glucometer 183H 08/06/21 20:05: Glucometer 169H 08/07/21 05:15: Glucometer 133H 08/07/21 05:35: White Blood Count 6.7, Red Blood Count 3.94L, Hemoglobin 11.1L, Hematocrit 34L, Mean Corpuscular Volume 87, Mean Corpuscular Hemoglobin 28, Mean Corpuscular Hemoglobin Concent 32, Red Cell Distribution Width 13.8, Platelet Count 234, Mean Platelet Volume 10.9, Immature Granulocyte % (Auto) 0, Neutrophils (%) (Auto) 57, Lymphocytes (%) (Auto) 27, Monocytes (%) (Auto) 5, Eosinophils (%) (Auto) 10, Basophils (%) (Auto) 1, Neutrophils # (Auto) 3.8, Lymphocytes # (Auto) 1.8, Monocytes # (Auto) 0.3, Eosinophils # (Auto) 0.7H, Basophils # (Au to) 0.1, Immature Granulocyte # (Auto) 0.0, Sodium Level 140, Potassium Level 4.0, Chloride Level 105, Carbon Dioxide Level 21, Anion Gap 14, Blood Urea Nitrogen 28H, Creatinine 2.14H, Estimat Glomerular Filtration Rate 37, BUN/Creatinine Ratio 13, Glucose Level 136H, Calcium Level 9.3, Corrected Calcium 9.6, Total Bilirubin 0.3, Aspartate Amino Transf (AST/SGOT) 13, Alanine Aminotransferase (ALT/SGPT) 9, Alkaline Phosphatase 113, Total Protein 6.5, Albumin 3.6 08/07/21 10:48: Glucometer 233H 08/07/21 15:11: Glucometer 201H 08/07/21 20:03: Glucometer 194H 08/08/21 06:08: Glucometer 171H 08/08/21 10:52: Glucometer 228H 08/08/21 15:08: Glucometer 72 08/08/21 15:45: Glucometer 110 08/08/21 16:31: Glucometer 111H 08/08/21 20:47: Glucometer 165H 08/09/21 05:54: Glucometer 202H 08/09/21 10:52: Glucometer 235H 08/09/21 15:39: Glucometer 135H 08/09/21 16:54: Glucometer 151H 08/09/21 20:02: Glucometer 203H 08/10/21 05:33: Glucometer 163H 08/10/21 10:47: Glucometer 195H Pending Labs Laboratory Tests 08/02/21 16:11: Glucometer 185 08/02/21 20:21: Glucometer 117 08/03/21 02:02: Glucometer 103 08/03/21 05:54: White Blood Count 9.2, Red Blood Count 3.52, Hemoglobin 10.0, Hematocrit 30, Mean Corpuscular Volume 86, Mean Corpuscular Hemoglobin 28, Mean Corpuscular Hemoglobin Concent 33, Red Cell Distribution Width 14.3, Platelet Count 196, Mean Platelet Volume 10.7, Immature Granulocyte % (Auto) 0, Neutrophils (%) (Auto) 69, Lymphocytes (%) (Auto) 19, Monocytes (%) (Auto) 5, Eosinophils (%) (Auto) 6, Basophils (%) (Auto) 1, Neutrophils # (Auto) 6.3, Lymphocytes # (Auto) 1.7, Monocytes # (Auto) 0.5, Eosinophils # (Auto) 0.6, Basophils # (Auto) 0.1, Immature Granulocyte # (Auto) 0.0, Sodium Level 140, Potassium Level 3.6, Chloride Level 104, Carbon Dioxide Level 22, Anion Gap 14, Blood Urea Nitrogen 18, Creatinine 1.60, Estimat Glomerular Filtration Rate 52, BUN/Creatinine Ratio 11, Glucose Level 133, Calcium Level 9.0, Corrected Calcium 9.6, Total Bilirubin 0.4, Aspartate Amino Transf (AST/SGOT) 13, Alanine Aminotransferase (ALT/SGPT) 10, Alkaline Phosphatase 113, Total Protein 6.0, Albumin 3.2, Thyroid Stimulating Hormone (TSH) 0.95 08/03/21 06:05: Mean Blood Glucose 169, Hemoglobin A1c 7.5 08/03/21 11:00: Glucometer 201 08/03/21 15:21: Glucometer 96 08/03/21 20:13: Glucometer 99 08/04/21 06:32: Glucometer 167 08/04/21 08:45: Glucometer 246 08/04/21 10:50: Glucometer 171 08/04/21 16:12: Glucometer 139 08/04/21 20:58: Glucometer 216 08/05/21 05:43: Glucometer 186 08/05/21 10:53: Glucometer 203 08/05/21 16:56: Glucometer 241 08/05/21 20:31: Glucometer 158 08/06/21 00:42: Glucometer 136 08/06/21 06:32: Glucometer 193 08/06/21 11:00: Glucometer 194 08/06/21 15:44: Glucometer 183 08/06/21 20:05: Glucometer 169 08/07/21 05:15: Glucometer 133 08/07/21 05:35: White Blood Count 6.7, Red Blood Count 3.94, Hemoglobin 11.1, Hematocrit 34, Mean Corpuscular Volume 87, Mean Corpuscular Hemoglobin 28, Mean Corpuscular Hemoglobin Concent 32, Red Cell Distribution Width 13.8, Platelet Count 234, Mean Platelet Volume 10.9, Immature Granulocyte % (Auto) 0, Neutrophils (%) (Auto) 57, Lymphocytes (%) (Auto) 27, Monocytes (%) (Auto) 5, Eosinophils (%) (Auto) 10, Basophils (%) (Auto) 1, Neutrophils # (Auto) 3.8, Lymphocytes # (Auto) 1.8, Monocytes # (Auto) 0.3, Eosinophils # (Auto) 0.7, Basophils # (Auto) 0.1, Immature Granulocyte # (Auto) 0.0, Sodium Level 140, Potassium Level 4.0, Chloride Level 105, Carbon Dioxide Level 21, Anion Gap 14, Blood Urea Nitrogen 28, Creatinine 2.14, Estimat Glomerular Filtration Rate 37, BUN/Creatinine Ratio 13, Glucose Level 136, Calcium Level 9.3, Corrected Calcium 9.6, Total Bilirubin 0.3, Aspartate Amino Transf (AST/SGOT) 13, Alanine Aminotransferase (ALT/SGPT) 9, Alkaline Phosphatase 113, Total Protein 6.5, Albumin 3.6 08/07/21 10:48: Glucometer 233 08/07/21 15:11: Glucometer 201 08/07/21 20:03: Glucometer 194 08/08/21 06:08: Glucometer 171 08/08/21 10:52: Glucometer 228 08/08/21 15:08: Glucometer 72 08/08/21 15:45: Glucometer 110 08/08/21 16:31: Glucometer 111 08/08/21 20:47: Glucometer 165 08/09/21 05:54: Glucometer 202 08/09/21 10:52: Glucometer 235 08/09/21 15:39: Glucometer 135 08/09/21 16:54: Glucometer 151 08/09/21 20:02: Glucometer 203 08/10/21 05:33: Glucometer 163 08/10/21 10:47: Glucometer 195 Discharge Home Medications: Active Scripts Active Metoclopramide HCl 10 Mg Tablet 10 Mg PO ACHS Abilify (Aripiprazole) 10 Mg Tablet 5 Mg PO DAILY Oxyir Tablet (Oxycodone HCl) 5 Mg Tab 5 Mg PO Q4H PRN Amlodipine Besylate 5 Mg Tablet 5 Mg PO DAILY Hydralazine HCl 25 Mg Tablet 25 Mg PO BID Baclofen 10 Mg Tablet 10 Mg PO Q6HR Insulin Lispro 100 Unit/1 Ml Vial 13 Unit SQ TIDWM 7 Days Lantus (Insulin Glargine,Hum.rec.anlog) 100 Unit/1 Ml Vial 30 Unit SQ BID 7 Days Reported Formula ( Vit W-Ca,Fe,FA(<1 mg)) 1 Each Tablet 1 Each PO DAILY Melatonin 10 Mg Tablet 20 Mg PO HS TAKES 2 (10MG) TABS Tylenol Extra Strength (Acetaminophen) 500 Mg Tablet 1,000 Mg PO Q8H TAKES 2 (500MG) TABS Cetirizine HCl 10 Mg Tablet 10 Mg PO DAILY PRN One Daily Complete (Multivitamin with Minerals) 1 Each Tablet 1 Each PO DAILY Aspirin EC (Aspirin) 81 Mg Tablet.dr 81 Mg PO DAILY Carvedilol 25 Mg Tablet 25 Mg PO BID Bupropion Xl (Bupropion HCl) 150 Mg Tab.er.24h 150 Mg PO DAILY Lovastatin 20 Mg Tablet 20 Mg PO DAILY Pantoprazole Sodium 20 Mg Tablet.dr 20 Mg PO BID Instructions to patient/family Please see electronic discharge instructions given to patient. Diagnosis/Problems Diagnosis/Problems (1) Hx of right BKA (2) Diabetes mellitus, insulin dependent (IDDM), uncontrolled (3) Obesity (4) Hypertension (5) Hyperlipidemia (6) Neuropathy (7) Mood disorder SHLOMO PATEL DO Aug 10, 2021 06:12
[2021-08-10 07:54] VITALS: BP 159/87
[2021-08-10] MEDS: inSUlin ASPART (NovoLOG) 1 UNIT/0.01 ML (CHARGE PER UNIT) SC SCH ×2 (08:15→13:09)
[2021-08-10] MEDS: ASPIRIN E.C. 81 MG (ECOTRIN) TAB PO SCH (08:15)
[2021-08-10] MEDS: buPROPion SR 150 MG (WELLBUTRIN SR) TAB PO SCH (08:15)
[2021-08-10] MEDS: amLODIPine 5 MG (NORVASC) TAB PO SCH (08:15)
[2021-08-10] MEDS: SIMvastatin 10 MG (ZOCOR) TAB PO SCH (08:15)
[2021-08-10] MEDS: hydrALAZINE (APRESOLINE) 25 MG TAB PO SCH (08:15)
[2021-08-10] MEDS: HYPOCHLOROUS ACID/NaCl (VASHE) 250 ML IR SCH (08:16)
[2021-08-10] MEDS: PANTOPRAZOLE 20 MG TABLET (PROTONIX) PO SCH (08:18)
[2021-08-10] MEDS: polyethylene glycoL POWDER 17 GM (MIRALAX) PACK PO SCH (08:33)
[2021-08-10] MEDS: SENNA W/DOCUSATE (SENOKOT S) TABLET PO SCH (08:33)
[2021-08-10] MEDS: DOCUSATE SODIUM 100 MG (COLACE) CAP PO SCH (08:33)
--- NOTE | 2021-08-10 09:48 | Therapy Team Discharge Summary ---
Therapy Discharge Summary Discharge Recommendations Date of Discharge Physical Therapy Patient came to rehab following a right BKA. Upon evaluation patient performs rolling and supine <-> sit with independence, sit <-> stand min assist, transfers CGA, car transfer min assist, ambulate 10' with a rolling walker with CGA (including 10' over an uneven surface), and picked up an object from the floor with CGA using a licensing registration examiner. Patient has been performing bed mobility and transfer training, balance and endurance training, functional strengthening, stair training, gait training, and education. Patient has made fair progress and has met all of his nursing home goals except ambulating 150'. Now, patient performs rolling and supine <-> sit with independence, sit <-> stand and transfers with independence, car transfer independent, ambulates 50' with a rolling walker with CGA/SBA (including 50' with at least 2 turns of 90 degrees and 10' over an uneven surface), propels a manual WC 150' with independence, can go up and down 4 steps using 2 handrails with CGA, and can order picker/assembler an object from the floor using a licensing registration examiner with independence. Patient is being discharged from this facility today and will be discharged from PT at this time. Roll Left to Right (QC): 6 Sit to Lying (QC): 6 Lying to Sitting/Side of Bed(Q: 6 Sit to Stand (QC): 6 Chair/Abt-tz-Cltob Xfer(QC): 6 Toilet Transfer (QC): 5 Car Transfer (QC): 6 Does the Patient Walk: Yes Mode of Locomotion: Walk Anticipated Mode of Locomotion: Walk Walk 10 feet (QC): 4 Walk 50 ft with 2 Turns(QC): 4 Walk 150 ft (QC): 88 Walking 10ft on uneven surface: 4 Distance: 10' Gait Assistive Device: FWW Does the Pt Use a Wheelchair: Yes Wheel 50 ft with 2 turns (QC): 6 Wheel 150 ft (QC): 6 Type of Wheelchair: Manual #of Steps: 4 1 Step (curb) (QC): 4 4 Steps (QC): 4 12 Steps (QC): 7 Balance Sitting Static: Normal Balance Sitting Dynamic: Normal Balance-Standing Static: Fair Picking up an Object (QC): 7 Occupational Therapy Decreased Activ Tolerance, Impaired I ADL's Eating (QC): 6 Oral Hygiene (QC): 6 Shower/Bathe Self (QC): 6 Upper Body Dressing (QC): 6 Lower Body Dressing (QC): 6 On/Off Footwear (QC): 6 Toileting Hygiene (QC): 6 PT City Solicitor Goals City Solicitor Goals PT Half-Way Goals Time Frame: August 23, 2021 Roll Left to Right (QC): 6 Sit to Lying (QC): 6 Lying-Sitting on Side/Bed(QC): 6 Sit to Stand (QC): 6 Chair/Vna-xv-Zfpdz Xfer(QC): 6 Car Transfer (QC): 4 Does the Patient Walk: Yes Walk 10 feet (QC): 4 Walk 10ft-Uneven Surface(QC): 4 Walk 50ft with 2 Turns (QC): 4 Walk 150 ft (QC): 4 Wheel 50 feet with 2 turns (QC: 9 1 Step (curb) (QC): 4 4 Steps (QC): 4 12 Steps (QC): 88 Picking up an Object (QC): 6 OT Half-Way Goals City Solicitor Goals Time Frame: Aug 14, 2021 Eating (FIM): 6 Eating (QC): 6 (met) Oral Hygiene (QC): 6 (met) Shower/Bathe Self (QC): 6 (met) Upper Body Dressing (QC): 6 (met) Lower Body Dressing (QC): 6 (met) On/Off Footwear (QC): 6 (met) Toileting(FIM): 6 Toileting Hygiene (QC): 6 (met) Toilet/Commode Transfer (QC): 6 1=Demonstrate adherence to instructed precautions during ADL tasks. 2=Patient will verbalize/demonstrate understanding of assistive devices/modifications for ADL. 3=Patient will improve strength/tolerance for activity to enable patient to perform ADL's. MATTHEW MAURICIO PT Aug 10, 2021 09:47
--- NOTE | 2021-08-10 14:12 | Therapy Team Discharge Summary ---
Therapy Discharge Summary Discharge Recommendations Date of Discharge Physical Therapy Roll Left to Right (QC): 6 Sit to Lying (QC): 6 Lying to Sitting/Side of Bed(Q: 6 Sit to Stand (QC): 6 Chair/Agp-qp-Myavk Xfer(QC): 6 Toilet Transfer (QC): 5 Car Transfer (QC): 6 Does the Patient Walk: Yes Mode of Locomotion: Walk Anticipated Mode of Locomotion: Walk Walk 10 feet (QC): 4 Walk 50 ft with 2 Turns(QC): 4 Walk 150 ft (QC): 88 Walking 10ft on uneven surface: 4 Distance: 10' Gait Assistive Device: FWW Does the Pt Use a Wheelchair: Yes Wheel 50 ft with 2 turns (QC): 6 Wheel 150 ft (QC): 6 Type of Wheelchair: Manual #of Steps: 4 1 Step (curb) (QC): 4 4 Steps (QC): 4 12 Steps (QC): 7 Balance Sitting Static: Normal Balance Sitting Dynamic: Normal Balance-Standing Static: Fair Picking up an Object (QC): 7 Occupational Therapy Pt admitted to [facility] s/p R [facility] At [facility], pt was independent with all ADLs and functional mobility, no AD. Upon initial evaluation, pt was independent with eating, required set up assistance wtih oral care and upper body dressing, supervision with showering and footwear, min A lower body dressing and toileting. OT tx focused on increasing BUE strength and activity tolerance, and increasing independence and safety with ADLs and functional mobility. Pt made good progress towards goals, attaining all LTGs. Pt to discharge home, OT recommendations include tub transfer bench. Pt discharging from facility, d/c from OT at this time. Decreased Activ Tolerance, Impaired I ADL's Eating (QC): 6 Oral Hygiene (QC): 6 Shower/Bathe Self (QC): 6 Upper Body Dressing (QC): 6 Lower Body Dressing (QC): 6 On/Off Footwear (QC): 6 Toileting Hygiene (QC): 6 PT Halfway Goals Halfway Goals PT Halfway Goals Time Frame: August 23, 2021 Roll Left to Right (QC): 6 Sit to Lying (QC): 6 Lying-Sitting on Side/Bed(QC): 6 Sit to Stand (QC): 6 Chair/Bpu-nn-Vyocb Xfer(QC): 6 Car Transfer (QC): 4 Does the Patient Walk: Yes Walk 10 feet (QC): 4 Walk 10ft-Uneven Surface(QC): 4 Walk 50ft with 2 Turns (QC): 4 Walk 150 ft (QC): 4 Wheel 50 feet with 2 turns (QC: 9 1 Step (curb) (QC): 4 4 Steps (QC): 4 12 Steps (QC): 88 Picking up an Object (QC): 6 OT Halfway Goals Halfway Goals Time Frame: Aug 14, 2021 Eating (FIM): 6 Eating (QC): 6 (met) Oral Hygiene (QC): 6 (met) Shower/Bathe Self (QC): 6 (met) Upper Body Dressing (QC): 6 (met) Lower Body Dressing (QC): 6 (met) On/Off Footwear (QC): 6 (met) Toileting(FIM): 6 Toileting Hygiene (QC): 6 (met) Toilet/Commode Transfer (QC): 6 1=Demonstrate adherence to instructed precautions during ADL tasks. 2=Patient will verbalize/demonstrate understanding of assistive devices/modifications for ADL. 3=Patient will improve strength/tolerance for activity to enable patient to perform ADL's. EROS ANDRADE OT Aug 10, 2021 14:12
[2021-08-10 15:20] VITALS: BP 159/87
== END 2021-08-10 15:40 | disposition home health service (06) | DRG 561 ==
PROVIDERS: ADMIT Internal Medicine; ATTEND Internal Medicine
DX: Z47.81 Encounter for orthopedic aftercare following surgical amputation (principal); Z89.511 Acquired absence of right leg below knee; E11.40 Type 2 diabetes mellitus with diabetic neuropathy, unspecified; E11.43 Type 2 diabetes mellitus with diabetic autonomic (poly)neuropathy; E11.65 Type 2 diabetes mellitus with hyperglycemia; K31.84 Gastroparesis; E66.9 Obesity, unspecified; G47.33 Obstructive sleep apnea (adult) (pediatric); E78.00 Pure hypercholesterolemia, unspecified; E78.5 Hyperlipidemia, unspecified; I10 Essential (primary) hypertension; K21.9 Gastro-esophageal reflux disease without esophagitis; S60.410D Abrasion of right index finger, subsequent encounter; R29.91 Unspecified symptoms and signs involving the musculoskeletal system; F41.9 Anxiety disorder, unspecified; F31.9 Bipolar disorder, unspecified; M19.91 Primary osteoarthritis, unspecified site; Z68.35 Body mass index [BMI] 35.0-35.9, adult; Z79.4 Long term (current) use of insulin; Z79.84 Long term (current) use of oral hypoglycemic drugs; Z87.891 Personal history of nicotine dependence; Z79.01 Long term (current) use of anticoagulants; Z87.81 Personal history of (healed) traumatic fracture
CPT/HCPCS: 36415; 80053; 82947; 83036; 84443; 85025